=== PATIENT | female | born 1990 | race Caucasian/White ===

== ENCOUNTER 2017-04-21 13:29 | Emergency (ER) | payer OTHER, SELFPAY ==
[2017-04-21 13:30] VITALS: BP 124/94; PULSE 84; RESP 20; TEMP 36.8; O2SAT 98; BMI 25.7
[2017-04-21 14:33] VITALS: BP 131/92; PULSE 67; RESP 20; TEMP 36.6; O2SAT 98; BMI 26.6
--- NOTE | 2017-04-21 15:16 | HMH.EDUTC ---
[facility] [place] Impression: Cyst Disposition: Home, Self-Care Condition on Discharge: Good Instructions: DI for Skin Abscess Additional Instructions: Increase fluids, Tylenol Motrin as needed for pain Follow-up ENT call office tomorrow If symptoms return or worsen return or be seen in the ER Prescriptions: cephALEXin [Keflex 500mg Cap] 500 mg PO BID 7 Days #14 cap Referrals: Eddi Flynn MD [Primary Care Provider] - Time of Disposition: 15:23 Medical Decision Making Vital Signs: 04/21/17 13:30 04/21/17 14:33 Temperature 98.2 F 97.8 F Temperature Source Oral Temporal Artery Scan Pulse Rate [Left Radial] 84 67 Respiratory Rate 20 20 Blood Pressure [Left Arm] 124/94 131/92 Blood Pressure Mean [Left Arm] 104 105 Blood Pressure Source [Left Arm] Automatic Cuff Automatic Cuff Blood Pressure Position [Left Arm] Sitting Sitting 02 Sat by Pulse Oximetry 98 98 Oxygen Delivery Method Room Air Room Air - Jack Inquiry Pt receiving controlled substance: No [facility] [place] - General Chief complaint: Skin/Abscess/Foreign Body Stated complaint: Numbness in lips,crooked smile Mode of Arrival: Ambulatory Source of Information: Patient Limitations: No Limitations Description of Symptoms (Recalled from Triage Doc. by RN): PATIENT STATES SHE HAS A CYST ON THE INSIDE OF HER LIP ON THE LEFT SIDE. STATES HER LIP IS NUMB AND HER SMILE IS CROOKED. STATES THIS APPEARED 2 NIGHTS AGO. STATES IT IS NOT PAINFUL. HEENT Symptoms (Recalled from RN notes): No Resp Symptoms (Recalled from RN notes): No Skin Symptoms (Recalled from RN notes): Yes MS Symptoms (Recalled from RN notes): No Functional Status (Recalled from RN notes): NA - History of Present Illness Provider Complaint: 26-year-old female presents for cyst on left lower lip. Patient states started 2 days ago is numb in her mouth was off. Patient denies fever or pain. Patient states she just had her teeth cleaned and was told she has no cavities. - Related Data Home Medications Medication Instructions Recorded Confirmed Escitalopram Oxalate [Lexapro] 20 mg PO DAILY 04/21/17 04/21/17 hydroCHLOROthiazide [HCTZ 25mg 25 mg PO DAILY 04/21/17 04/21/17 tab] Previous Rx's Medication Instructions Recorded cephALEXin [Keflex 500mg Cap] 500 mg PO BID 7 Days #14 cap 04/21/17 Allergies Allergy/AdvReac Type Severity Reaction Status Date / Time No Known Allergies Allergy Verified 04/21/17 14:41 - Worker's Comp Is this a Worker's Comp case?: No Is this an [facility] Worker's Comp?: No Is this a [place] Worker's Comp?: No [facility] History I have reviewed the patient's past medical history: Yes Medical History: Denies:: Cancer, Diabetes Mellitus Type 1, Diabetes Mellitus Type 2, Internal Pacemaker, MRSA Other Surgeries: No: Pacemaker Amputation: No Fractures: No - *Social History Educational Level: Attended High School Smoking Status: Current every day smoker Tobacco Type: cigarettes Alcohol Intake: never - Psychiatric History Expresses thoughts of harming self/others: None Suicide Plan Description: No Plan ROS Obtained: Yes All systems reviewed & no additional complaints - Constitutional Constitutional: Reports system reviewed and no additional complaints, except as docu - Eyes Eyes: Reports system reviewed and no additional complaints, except as docu - ENT Ears, Nose, Mouth, and Throat: Reports system reviewed and no additional complaints, except as docu, Reports as per HPI - Cardiovascular Cardiovascular: Reports system reviewed and no additional complaints, except as docu - Respiratory Respiratory: Yes system reviewed and no additional complaints, except as docu - Gastrointestinal Gastrointestingal: Reports: system reviewed and no additional complaints, except as docu - Musculoskeletal Musculoskeletal: Reports system reviewed and no additional complaints, except as docu - Neurologic Neurologic: Reports system reviewe
--- NOTE | 2017-04-21 15:19 | ED_ITS ---
[facility] Disposition Clinical Impression: Cyst Disposition: Home, Self-Care Condition on Discharge: Good Instructions: DI for Skin Abscess Additional Instructions: Increase fluids, Tylenol Motrin as needed for pain Follow-up ENT call office tomorrow If symptoms return or worsen return or be seen in the ER Prescriptions: cephALEXin [Keflex 500mg Cap] 500 mg PO BID 7 Days #14 cap Referrals: Eddi Flynn MD [Primary Care Provider] - Time of Disposition: 15:23 Medical Decision Making Vital Signs: 04/21/17 13:30 04/21/17 14:33 Temperature 98.2 F 97.8 F Temperature Source Oral Temporal Artery Scan Pulse Rate [Left Radial] 84 67 Respiratory Rate 20 20 Blood Pressure [Left Arm] 124/94 131/92 Blood Pressure Mean [Left Arm] 104 105 Blood Pressure Source [Left Arm] Automatic Cuff Automatic Cuff Blood Pressure Position [Left Arm] Sitting Sitting 02 Sat by Pulse Oximetry 98 98 Oxygen Delivery Method Room Air Room Air - Jack Inquiry Pt receiving controlled substance: No [facility] HPI - General Chief complaint: Skin/Abscess/Foreign Body Stated complaint: Numbness in lips,crooked smile Mode of Arrival: Ambulatory Source of Information: Patient Limitations: No Limitations Description of Symptoms (Recalled from Triage Doc. by RN): PATIENT STATES SHE HAS A CYST ON THE INSIDE OF HER LIP ON THE LEFT SIDE. STATES HER LIP IS NUMB AND HER SMILE IS CROOKED. STATES THIS APPEARED 2 NIGHTS AGO. STATES IT IS NOT PAINFUL. HEENT Symptoms (Recalled from RN notes): No Resp Symptoms (Recalled from RN notes): No Skin Symptoms (Recalled from RN notes): Yes MS Symptoms (Recalled from RN notes): No Functional Status (Recalled from RN notes): NA - History of Present Illness Provider Complaint: 26-year-old female presents for cyst on left lower lip. Patient states started 2 days ago is numb in her mouth was off. Patient denies fever or pain. Patient states she just had her teeth cleaned and was told she has no cavities. - Related Data Home Medications Medication Instructions Recorded Confirmed Escitalopram Oxalate [Lexapro] 20 mg PO DAILY 04/21/17 04/21/17 hydroCHLOROthiazide [HCTZ 25mg 25 mg PO DAILY 04/21/17 04/21/17 tab] Previous Rx's Medication Instructions Recorded cephALEXin [Keflex 500mg Cap] 500 mg PO BID 7 Days #14 cap 04/21/17 Allergies Allergy/AdvReac Type Severity Reaction Status Date / Time No Known Allergies Allergy Verified 04/21/17 14:41 - Worker's Comp Is this a Worker's Comp case?: No Is this an [facility] Worker's Comp?: No Is this a [place] Worker's Comp?: No [facility] History I have reviewed the patient's past medical history: Yes Medical History: Denies:: Cancer, Diabetes Mellitus Type 1, Diabetes Mellitus Type 2, Internal Pacemaker, MRSA Other Surgeries: No: Pacemaker Amputation: No Fractures: No - *Social History Educational Level: Attended High School Smoking Status: Current every day smoker Tobacco Type: cigarettes Alcohol Intake: never - Psychiatric History Expresses thoughts of harming self/others: None Suicide Plan Description: No Plan ROS Obtained: Yes All systems reviewed & no additional complaints - Constitutional Constitutional: Reports system reviewed and no additional complaints, except as docu - Eyes Eyes: Reports system revie
== END 2017-04-21 15:33 | disposition home or self-care (01) ==
LOC: ER 13:50 → UTC 14:00
PROVIDERS: Emergency Provider Nurse Practitioner Family; Family Provider Emergency Medicine; PCP Emergency Medicine
DX: K09.8 Other cysts of oral region, not elsewhere classified (principal); F17.210 Nicotine dependence, cigarettes, uncomplicated
CPT/HCPCS: 99201; 99283

== ENCOUNTER → 2017-06-26 14:24 | Outpatient (CLI) | payer OTHER, SELFPAY ==
[2017-06-26 19:47] LABS: Alanine Aminotransferase 39 U/L (12-78); Albumin Level 3.6 gm/dL (3.4-5.0); Alkaline Phosphatase 46 U/L (46-116); Anion Gap 11.1 mEq/L (5-15); Aspartate Amino Transferase 25 U/L (15-37); Bilirubin,Total 0.3 mg/dL (0.2-1.0); Blood Urea Nitrogen 15 mg/dL (7-18); Calcium 8.9 mg/dL (8.5-10.1); Carbon Dioxide 28 mmol/L (21.0-32.0); Chloride 107 mmol/L (98-107); Chol/HDL Ratio 4.8 (1-3.5); Cholesterol 220 mg/dL (140-200); Creatinine,Serum 0.76 mg/dL (0.55-1.02); Estimated Glomerular Filt Rate 93 ml/min (>60); GFR (African American) 113 ML/MIN (>60); Globulin 3.5 gm/dl (1.3-3.2); Glucose 111 mg/dL (74-106); HDL Cholesterol 46 mg/dL (29-89); LDL Cholesterol 99 mg/dL (0-130); Potassium 4.1 mmoL/L (3.5-5.1); Sodium 142 mmol/L (136-145); T4 (Thyroxine) 6.7 ug/dl (4.7-13.3); Thyroid Stimulating Hormone 3.52 uIU/ml (0.358-3.740); Total Protein,Serum 7.1 gm/dL (6.4-8.2); Triglycerides 376 mg/dL (30-200); VLDL Cholesterol 75 mg/dL (0-40)
[2017-06-26 19:50] LABS: C-Reactive Protein < 0.2 mg/L (0.0-0.9)
[2017-06-26 20:30] LABS: Erythrocyte Sedimentation Rate 14 mm/hr (0-20)
[2017-06-28 10:15] LABS: Anti-Jo-1 <0.2 AI (0.0-0.9); Anti-Smith Antibody <0.2 AI (0.0-0.9); Antichromatin Antibodies <0.2 AI (0.0-0.9); Antiscleroderma-70 Antibodies <0.2 AI (0.0-0.9); RNP Antibodies <0.2 AI (0.0-0.9); Sjogren's Anti-SS-A <0.2 AI (0.0-0.9); Sjogren's Anti-SS-B <0.2 AI (0.0-0.9)
[2017-06-28 11:38] LABS: RA Latex Turbid. <10.0 IU/mL (0.0-13.9); Vitamin D 25 Hydroxy 26.5 ng/mL (30.0-100.0)
[2017-06-28 11:39] LABS: Anti-Centromere B Antibodies <0.2 AI (0.0-0.9); Anti-DNA (DS) Ab Qn <1 IU/mL (0-9); Vitamin B12 304 pg/mL (232-1245)
[2017-06-29 18:37] LABS: Anti-Cyclic Citrullinated Pept 3 units (0-19)
== END ==
PROVIDERS: Visit Provider Physician Assistant
DX: R20.2 Paresthesia of skin (principal); M79.89 Other specified soft tissue disorders
CPT/HCPCS: 80053; 80061; 82607; 82652; 84436; 84443; 85651; 86038; 86140; 86200; 86431

== ENCOUNTER → 2017-11-07 12:04 | Outpatient (REF) | payer OTHER, SELFPAY ==
[2017-11-09 18:15] LABS: Neisseria gonorrhoeae, NAA Negative (Negative)
== END ==
LOC: LAB 12:04
PROVIDERS: Visit Provider Nurse Practitioner Family
DX: N89.8 Other specified noninflammatory disorders of vagina (principal)
CPT/HCPCS: 87210; 87491; 87591

== ENCOUNTER → 2017-11-21 08:36 | Outpatient (CLI) | payer OTHER, SELFPAY ==
[2017-11-22 15:48] LABS: HCG,Quantitative 5321 mIU/mL
== END ==
PROVIDERS: Visit Provider Nurse Practitioner Family
DX: Z34.90 Encounter for supervision of normal pregnancy, unspecified, unspecified trimester (principal)
CPT/HCPCS: 84702

== ENCOUNTER → 2017-12-17 16:32 | Outpatient (CLI) | payer OTHER, SELFPAY ==
[2017-12-17 17:10] LABS: Basophils % 0.3 % (0.1-2.0); Eosinophils # 0.1 K/mm3 (0.0-0.4); Eosinophils % 0.8 % (0.1-12.0); Hematocrit 38.8 % (37.0-47.0); Hemoglobin 13.2 g/dL (12.2-16.2); Lymphocytes # 2.4 K/mm3 (0.7-4.5); Lymphocytes % 19.3 K/mm3 (10-50); Mean Corpuscular Hemoglobin 29.8 pg (27.0-31.2); Mean Corpuscular Volume 87.5 fl (81-99); Mean Platelet Volume 7.6 fl (7.4-10.4); Monocytes # 0.5 K/mm3 (0.1-1.0); Monocytes % 3.7 % (1.7-9.3); Neutrophils # 9.3 K/mm3 (1.8-7.8); Platelet Count 266 K/mm3 (142-424); Red Blood Count 4.44 M/mm3 (4.20-5.40); Red Cell Distribution Width 12.9 % (11.5-17.5); White Blood Count 12.3 K/mm3 (4.8-10.8)
[2017-12-20 18:38] LABS: HIV Screen 4th Generation wRfx Non Reactive (Non Reactive)
[2017-12-20 18:39] LABS: Hepatitis B Surface Antigen Negative (Negative); Hepatitis C Antibody <0.1 s/co ratio (0.0-0.9); Rapid Plasma Reagin Ab Titer Non Reactive (NonRea<1:1)
== END ==
PROVIDERS: Family Provider Emergency Medicine; PCP Physician Assistant; Visit Provider Nurse Practitioner Obstetrics & Gynecology
DX: Z34.90 Encounter for supervision of normal pregnancy, unspecified, unspecified trimester (principal)
CPT/HCPCS: 36415; 85025; 86592; 86703; 86762; 86850; 87340; 87380; G0432

== ENCOUNTER → 2017-12-27 12:48 | Outpatient (CLI) | payer OTHER, SELFPAY ==
--- NOTE | 2017-12-27 12:50 | US_ITS ---
US OB transvaginal HISTORY: ITS.REASON: US OB Dates ORDERING PHYSICIAN: Keshav Clark MD PATIENT AGE: 27 years COMPARISON: None FINDINGS: An intrauterine gestational sac is present with a pole with a crown-rump length of 3.81cm correlating to gestational age of 10 weeks 5 days. heart tones are present with an FHR of 160 bpm's. Yolk sac is noted. The amnion and chorion have not yet fused. Adnexa: Unremarkable. IMPRESSION: Live intrauterine gestation at 10 weeks 5 days days as described above. Estimated due date by Ultrasound is 07/20/2018
== END ==
PROVIDERS: Family Provider Emergency Medicine; PCP Physician Assistant; Visit Provider Nurse Practitioner Obstetrics & Gynecology
DX: O26.841 Uterine size-date discrepancy, first trimester (principal)
CPT/HCPCS: 76817

== ENCOUNTER → 2018-03-03 12:20 | Outpatient (CLI) | payer OTHER, SELFPAY ==
--- NOTE | 2018-03-03 12:21 | US_ITS ---
US OB /maternal detail: INDICATION: ITS.REASON: US OB Complete ORDERING PHYSICIAN: Keshav Clark MD PATIENT AGE: 27 years TECHNIQUE: ultrasound transabdominal scanning. COMPARISON: No previous relevant studies. FINDINGS: Single viable intrauterine gestation. Breech position. Placenta: Posterior placenta grade 1. There is average amount fluid. The cervix appears satisfactory. Closed and measuring 4 cm in length. Complete survey performed and was unremarkable on the submitted images as in PACS. No discrete anomalies identified on survey imaging by technologist. Active fetus. Three-vessel cord with satisfactory umbilical cord insertion. 4- chamber heart noted. Survey of brain & ventricles unremarkable. Face and neck survey unremarkable. Diaphragm and chest views unremarkable. Abdomen: Both kidneys noted and unremarkable. Stomach noted and satisfactory. Spine: Survey of the spine satisfactory with no anomalies identified nor imaged. Both arms and legs noted. Amniotic Fluid: Adequate. Maternal adnexa: No significant findings. Measurements: Average ultrasound age 20w2d. Gestational Age 20w1d. Estimated due date by ultrasound age 0407/19/2018. Estimated weight 349 grams. BPD = 20w0d OFD = 20w5d HC = 19w5d AC = 20w1d FL = 21w0d Growth Percentile= 58% Heart Rate = 155 Cerebellum = 20 weeks 2 days Humerus = not obtained HC/AC is 1.16 (1.09-1.26). CI is 76% (70-86%). FL/BPD is 75%. FL/AC is 24%. IMPRESSION: There is a single live fetus which is in cephalic presentation. Average ultrasound age is 20 weeks and 2 days with an estimated due date by ultrasound of 07/19/2018. All parameters correlate. No obvious anomalies. Posterior grade 1 placenta with average appearing amount of amniotic fluid. Please see above for detail.
== END ==
PROVIDERS: PCP Emergency Medicine; Visit Provider Nurse Practitioner Obstetrics & Gynecology
DX: Z36.0 Encounter for antenatal screening for chromosomal anomalies (principal)
CPT/HCPCS: 76811

== ENCOUNTER → 2018-04-16 10:41 | Outpatient (CLI) | payer OTHER, SELFPAY ==
[2018-04-16 11:07] LABS: Glucose,Fasting 84 mg/dL (60-105)
[2018-04-16 13:25] LABS: Glucose 1 Hour 130 mg/dL (74-106)
== END ==
PROVIDERS: Visit Provider Nurse Practitioner Obstetrics & Gynecology
DX: Z34.90 Encounter for supervision of normal pregnancy, unspecified, unspecified trimester (principal)
CPT/HCPCS: 36415; 82951

== ENCOUNTER → 2018-06-17 16:58 | Outpatient (CLI) | payer OTHER, SELFPAY | PROVIDERS: Visit Provider Nurse Practitioner Obstetrics & Gynecology | DX: Z34.90 Encounter for supervision of normal pregnancy, unspecified, unspecified trimester (principal) | CPT/HCPCS: 86403 ==

== ENCOUNTER → 2018-06-23 13:09 | Outpatient (CLI) | payer OTHER, SELFPAY ==
--- NOTE | 2018-06-23 13:13 | US_ITS ---
US OB BPP w/Fet-Mat S/D: Indication: ITS.REASON: US OB BPP Growth- LGA ORDERING PHYSICIAN: Keshav Clark MD PATIENT AGE: 27 years FINDINGS: The following parameters are obtained: Average ultrasound age is 37w1d. Estimated due date by ultrasound is 07/13/2018. Estimated weight is 3155 grams which is 81% BPD: 36w4d OFD: OFD HC: 37w4d AC: 37w6d FL: 36w1d heart rate: 142 bpm. HC/AC: 0.97 (0.93-1.11) Cephalic index: 76% (70-86%) FL/BPD: 78% (71-87%) FL/AC: 21% (20-24%) Amniotic fluid index: 9 cm Qualitative AFV: 2 breathing movements: 2 Gross body movements: 2 Tone: 2 Biophysical profile score: 8/8 No obvious anomalies evident. Placenta: POST GR 2 Cervix: Appears closed and measures 3 cm IMPRESSION: There is a single live fetus present which is in cephalic presentation. Average ultrasound age 37 weeks and 1 day with an estimated weight of 3155 g which is 81 percentile. Biophysical profile dated today with normal amniotic fluid index. Placenta is posterior and grade 2
== END ==
PROVIDERS: PCP Emergency Medicine; Visit Provider Nurse Practitioner Obstetrics & Gynecology
DX: O36.60X0 Maternal care for excessive fetal growth, unspecified trimester, not applicable or unspecified (principal)
CPT/HCPCS: 76811; 76816; 76819; 76820

== ENCOUNTER 2018-07-14 05:36 | Inpatient (IN) ==
[2018-07-14 06:03] LABS: Amphetamine/Metha Screen,Urine Negative ng/mL (<1000); Barbiturates Screen,Urine Negative ng/mL (<200); Benzodiazepines Screen,Urine Negative ng/mL (<200); Cannabinoid Screen,Urine Negative ng/mL (<50); Cocaine Screen,Urine Negative ng/mL (<300); Methadone Screen,Urine Negative ng/mL (<300); Opiate Screen,Urine Negative ng/mL (<300); Phencyclidine Screen,Urine Negative ng/mL (<25)
[2018-07-14 06:10] LABS: Basophils % 0.3 % (0.1-2.0); Eosinophils # 0.2 K/mm3 (0.0-0.4); Eosinophils % 1.4 % (0.1-12.0); Hematocrit 35.3 % (37.0-47.0); Lymphocytes # 2.7 K/mm3 (0.7-4.5); Mean Corpuscular HGB Conc 33.8 g/dL (31.8-35.4); Mean Corpuscular Hemoglobin 28.6 pg (27.0-31.2); Mean Corpuscular Volume 84.7 fl (81-99); Mean Platelet Volume 8.7 fl (7.4-10.4); Monocytes # 0.5 K/mm3 (0.1-1.0); Monocytes % 4.3 % (1.7-9.3); Neutrophils # 7.9 K/mm3 (1.8-7.8); Platelet Count 210 K/mm3 (142-424); Red Blood Count 4.17 M/mm3 (4.20-5.40); White Blood Count 11.3 K/mm3 (4.8-10.8)
[2018-07-14 06:17] LABS: Calcium 8.6 mg/dL (8.5-10.1)
--- NOTE | 2018-07-14 08:02 | Operative Note ---
Date of procedure: 07/14/18 Pre-op Diagnosis:: Term , previous section Post-op Diagnosis:: Term , previous section Procedure performed:: Repeat lower segment transverse section Surgeon:: Keshav Clark MD Cop(s):: Dr. Moody [employer]ERCIAL CR[employer]BER:: Luis Weaver Anesthesia: spinal Estimated blood loss (mL): 600 Clinical Note:: She is a 27-year-old 2 para 1 who was 39 weeks gestational age. She has had a previous section as a result of that was offered repeat lower segment transverse section at term. Operative findings:: She delivered a liveborn female child at 7:36 AM on the morning of July 14, 2018. The baby had Apgars of 8 at 1 minute and 9 at 5 minutes. PH was 7.25. Ovaries and tubes appeared normal. Operative note:: She was taken to the operating room where spinal anesthesia was found be adequ ate. She was prepped and draped in normal sterile fashion in the supine position with a leftward tilt. A Stoner catheter was in the bladder. A Pfannenstiel skin incision was made with knife then carried through to the underlying layer of fascia with cautery. The fascia was opened in the midline with cautery and extended laterally using Noble scissors. Anabel clamps were applied to the superior aspect of the fascial incision which was tented up and the underlying rectus muscles dissected off using cautery. The Anabel clamps were then applied to the inferior aspect of the fascial incision which in a similar fashion was tented up and the underlying rectus muscles dissected off using cautery. The rectus muscles were then in the midline, the peritoneum identified, and entered sharply with Metzenbaum scissors. This incision was then extended superiorly and inferiorly with cautery. We had good visualization of the bladder inferiorly. The Fernando device was then placed within the abdominal cavity. The bladder peritoneum was then opened in the midline and extended laterally using Metzenbaum scissors. A bladder flap was created digitally. Transverse incision was made through the uterine muscle to the amnion. This incision was then extended laterally using fingers traction. The amnion was entered sharply with knife. There was clear amniotic fluid. The infant's head was then delivered atraumatically. This was followed by the anterior shoulder and the rest of the 's body atraumatically. The oropharynx and nasopharynx were bulb suctioned. The was then handed off to Dr. Griggs who assigned Apgars of 8 at 1 minute and 9 at 5 minutes. We then obtained cord blood as well as cord pH. The pH was 7.25. Using gentle traction on the cord and countertraction on the fundus I was able to easily deliver the placenta intact. It had a normal three-vessel cord. The uterus was then cleared of clots and debris . The uterine incision was then closed using running 0 Vicryl suture in a locked fashion. A second layer of the same suture was used to imbricate the first layer. The bladder peritoneum was then closed using running 2-0 Vicryl suture in a locked fashion. The gutters and cul-de-sac were then cleared of clots and debris . Once again hemostasis was assured. The peritoneum was grasped with Radha clamps and closed using running 2-0 Vicryl suture. The rectus muscles were then reapproximated using running 0 Vicryl suture. The fascia was closed using running #1 Vicryl suture. The subcutaneous tissues were then irrigated with warm water followed by closure Lucinda's fascia using running 2-0 Monocryl suture. The skin was closed with awilda. I then cleaned the skin with Hibiclens. Sterile dressings were applied. She tolerated the procedure well and was taken to the recovery room in excellent condition. All sponges minute and needle counts were correct. Estimate a blood loss was approximately 600 mL. Condition: stable Disposition: PACU Specimens:: Products of conception Complications:: None
--- NOTE | 2018-07-14 08:05 | Progress Note ---
[facility] Anesthesia Checklist - Patient Identification Patient Identification: Arm Band - Structural Data Admitted From: Inpatient Planned Operative Procedure/s: repeat c/s Consent for Planned Operative Procedure(s) Verified: Yes Verified Documents: Surgical Consent, History and Physical - NPO Status Verified Time NPO: 00:00 - Additional verifications Anesthesia Reactions: No - Airway Assessment C-Spine Mobility Assessed: Yes (mp2) TMJ Mobility Assessed: Yes Dentition: Good Dentition - Neurological Assessment Level of Consciousness: Awake, Alert - Anesthesia Plan Anesthesia Risk discussed: Yes Anesthesia Plan: Verified ASA Class: II Anesthesia Type: Spinal [facility] History I have reviewed the patient's past medical history: Yes Medical History: Reports:: Anxiety Denies:: Cancer, Diabetes Mellitus Type 1, Diabetes Mellitus Type 2, Hypertension, MRSA *Have you ever received a pneumonia vaccine?: No *Have you received a flu vaccine this season?: No Other Surgeries: Yes: Amputation: No Fractures: No - *Social History Smoking Status: Never smoker Alcohol Intake: never Alcohol Intake Frequency:: other *Occupational Status:: employed Housing: apartment Household Members: children - Psychiatric History Pschychiatric History:: Reports:: Anxiety Family Hx:: No significant family history Para: 1
--- NOTE | 2018-07-14 08:06 | Progress Note ---
[facility] Anesthesia Record Part I Intake, IV Amount: 2,000 Estimated blood loss (mL): 600 Urine output (mL): 200 Blood Pressure: 125/77 SaO2: 99 Pulse Rate: 127 Respiratory Rate: 16 Temperature: 99 F Patient is:: Awake, Stable Stable to PACU at:: 08:00
--- NOTE | 2018-07-14 08:06 | Progress Note ---
[facility] Anesthesia Record Part II Discharge Time: 08:30 Destination: Obstetric PACU nurse assessment reviewed?: Yes Patient Condition:: Good Anesthesia Complications:: None Swallowing reflex intact?: Yes Cyanosis?: No
--- NOTE | 2018-07-14 09:03 | Pharmacy Consult Notes ---
[facility] Pharmacy VTE Monitoring - Patient Demographics Admission date: 07/14/18 Report Date: 07/14/18 Time: 09:03 Allergies/Adverse Reactions: Patient Allergies No Known Allergies Allergy (Verified 07/10/18 09:32) Height: 1.63 m Weight: 89.811 kg - VTE Risk Labs: VTE Related Lab Results Hgb 12.0 g/dL (12.2-16.2) L 07/14/18 06:00 Hct 35.3 % (37.0-47.0) L 07/14/18 06:00 Plt Count 210 K/mm3 (142-424) 07/14/18 06:00 BUN 8 mg/dL (7-18) 07/14/18 06:00 Creatinine 0.56 mg/dL (0.55-1.02) 07/14/18 06:00 Estimated Creat Clear 218 mL/min (50-200) 07/14/18 06:00 - Prophylaxis VTE Prophylaxis Ordered?: Yes Types of VTE Prophylaxis: IPCS Thigh High Location of Applied Device: Bilateral Lower Extremeties - VTE Diagnosis Confirmed Treatment or plan recommended: Continue Current Treatment
[2018-07-15 06:38] LABS: Basophils % 0.1 % (0.1-2.0); Eosinophils % 0.1 % (0.1-12.0); Hematocrit 27.4 % (37.0-47.0); Hemoglobin 9.3 g/dL (12.2-16.2); Lymphocytes # 2.3 K/mm3 (0.7-4.5); Lymphocytes % 19.2 % (10-50); Mean Corpuscular HGB Conc 34.1 g/dL (31.8-35.4); Mean Corpuscular Hemoglobin 29.4 pg (27.0-31.2); Mean Corpuscular Volume 86.3 fl (81-99); Mean Platelet Volume 8.8 fl (7.4-10.4); Monocytes # 0.6 K/mm3 (0.1-1.0); Monocytes % 5.4 % (1.7-9.3); Neutrophils # 8.8 K/mm3 (1.8-7.8); Neutrophils % 75.1 % (37.0-80.0); Platelet Count 216 K/mm3 (142-424); Red Blood Count 3.17 M/mm3 (4.20-5.40); Red Cell Distribution Width 14.2 % (11.5-17.5); White Blood Count 11.7 K/mm3 (4.8-10.8)
--- NOTE | 2018-07-15 08:09 | Progress Note ---
Internal Medicine - PN: Subj *Date: 07/15/18 *Time: 08:08 Interval history: She is doing very well this morning. She is eating and drinking and ambulating. She is bottlefeeding. Her lochia is normal. Her pain is well controlled. Exam Vital signs and Labs for Last 24 Hours: Temp Pulse Resp BP Pulse Ox 98.1 F 107 H 18 141/89 H 99 07/14/18 20:00 07/14/18 20:00 07/14/18 20:00 07/14/18 20:00 07/14/18 20:00 Laboratory Results - last 24 hr 07/14/18 07:25: Urine Color Yellow, Urine Appearance Clear, Urine pH 7.0, Ur Specific [place] 1.010, Urine Protein Negative, Urine Glucose (UA) Negative, Urine Ketones Negative, Urine Blood Negative, Urine Nitrate Negative, Urine Bilirubin Negative, Urine Urobilinogen 0.2, Ur Leukocyte Esterase Negative, Urine WBC Occasional, Ur Squamous Epith Cells 3-5, Urine Bacteria Trace 07/15/18 06:11: WBC 11.7 H, RBC 3.17 L, Hgb 9.3 L, Hct 27.4 L, MCV 86.3, MCH 29.4, MCHC 34.1, RDW 14.2, Plt Count 216, MPV 8.8, Neut % (Auto) 75.1, Lymph % (Auto) 19.2, [place] % (Auto) 5.4, Eos % (Auto) 0.1, Baso % (Auto) 0.1, Neut # (Auto) 8.8 H, Lymph # (Auto) 2.3, [place] # (Auto) 0.6, Eos # (Auto) 0.0, Baso # (Auto) 0.0 I & O for Last 24 hours: Intake & Output 07/12/18 07/13/18 07/14/18 07/15/18 11:59 11:59 11:59 11:59 Intake Total 2109 / 2109 Output Total 50 / 50 500 / 500 Balance 2059 / 2059 -500 / -500 Weight 198 lb - Constitutional no acute distress Assessment and Plan (1) Previous section complicating , with delivery Current visit: Yes Status: Acute Category: Medical Code(s): O34.219 - Maternal care for unspecified type scar from previous delivery (2) delivery delivered Current visit: Yes Status: Acute Category: Medical Code(s): O82 - Encoun ter for delivery without indication - Assessment and plan all Dx Assessment and Plan for all problems:: She is doing very well this morning. We will plan to send her home in 48 hours.
--- NOTE | 2018-07-16 08:38 | Progress Note ---
Internal Medicine - PN: Subj *Date: 07/16/18 *Time: 08:37 Interval history: She continues to do well this morning. She is eating and drinking and ambulating. She is bottlefeeding. Her lochia is normal. Exam Vital signs and Labs for Last 24 Hours: Temp Pulse Resp BP Pulse Ox 97.9 F 96 H 18 110/74 95 07/15/18 19:59 07/15/18 19:59 07/15/18 19:59 07/15/18 19:59 07/15/18 19:59 I & O for Last 24 hours: Intake & Output 07/13/18 07/14/18 07/15/18 07/16/18 11:59 11:59 11:59 11:59 Intake Total 2110 / 2110 Output Total 50 / 50 500 / 500 Balance 2059 / 2059 -500 / -500 Weight 198 lb - Constitutional no acute distress Assessment and Plan (1) Previous section complicating , with delivery Current visit: Yes Status: Acute Category: Medical Code(s): O34.219 - Maternal care for unspecified type scar from previous delivery (2) delivery delivered Current visit: Yes Status: Acute Category: Medical Code(s): O82 - Encounter for delivery without indication - Assessment and plan all Dx Assessment and Plan for all problems:: She continues to do very well. We will plan to send her home tomorrow.
[2018-07-16 20:51] VITALS: BP 121/90
--- NOTE | 2018-07-17 08:08 | Discharge Summary ---
General - General Admission date:: 07/14/18 Discharge date: 07/17/18 Hospital Course Rhogam Administration: Not Indicated Objective Vital signs: Temp Pulse Resp BP Pulse Ox 98.1 F 96 H 18 121/90 96 07/16/18 20:08 07/16/18 20:08 07/16/18 20:08 07/16/18 20:08 07/16/18 20:08 no acute distress DS: Diagnosis - Discharge Diagnosis (1) Previous section complicating , with delivery Status: Acute (2) delivery delivered Status: Acute Discharge Plan - Patient Discharge Instructions ACTIVITY: No heavy lifting DIET: continue same diet Additional Instructions: 07/28/18 at 2:00 f/u with Dr Clark. Patient Instructions: DI for , DI for Surgical Site Infection - Follow up Plan Disposition: Home, Self-Snf Medications: Home Medications Medication Instructions Recorded Confirmed Type 1 tab PO DAILY 03/11/18 07/14/18 History vitamin,calcium,qtuhosxi-jgkt-vayxm acid tablet Fluticasone Propionate [Flonase 1 spray INTRANASAL DAILY 07/14/18 07/14/18 History Allergy Relief NS] Ibuprofen [Motrin 400mg 400 mg PO Q4HP PRN #40 tab 07/17/18 Rx tablet] Oxycodone HCl/Acetaminophen 1 - 2 tab PO Q4-6H PRN #20 tab 07/17/18 Rx [Percocet 5/325mg tablet] Prescriptions/Medication Reconciliation: New Ibuprofen [Motrin 400mg tablet] 400 mg PO Q4HP PRN #40 tab PRN Reason: Moderate Pain Oxycodone HCl/Acetaminophen [Percocet 5/325mg tablet] 1 - 2 tab PO Q4-6H PRN #20 tab PRN Reason: Severe Pain Continued vitamin,calcium,rzgwsekm-caew-pylyp acid tablet 1 tab PO DAILY Fluticasone Propionate [Flonase Allergy Relief NS] 1 spray INTRANASAL DAILY
--- NOTE | 2018-07-17 08:12 | Discharge Summary ---
General - General Admission date:: 07/14/18 Discharge date: 07/17/18 HPI HPI: She is a 27-year-old 2 now para 2 who is 39 weeks gestational age. She has had a previous section and as a result of that was offered repeat lower segment transverse section at term. Hospital Course Hospital Course: She delivered a liveborn female child at 7:36 AM on the morning of July 14, 2018. The baby weighed 8 pounds 10 ounces and was 19 and three-quarter inches long. She had Apgars of 8 at 1 minute and 9 at 5 minutes. She is done well and has remained afebrile throughout her hosp italization. She is eating and drinking and ambulating. She has a positive blood, she is rubella immune and was group B streptococcus negative. She is bottlefeeding. Her stud setter is Dr. Griggs. She is discharged home to follow-up with me in approximately 2 weeks time. She has had her awilda removed and Steri-Strips applied. She was given a prescription for Percocet 5/325 number 20 tablets as well as Motrin 400 number 40 tablets. She will continue with her vitamins and iron. Rhogam Administration: Not Indicated Objective Vital signs: Temp Pulse Resp BP Pulse Ox 98.1 F 96 H 18 121/90 96 07/16/18 20:08 07/16/18 20:08 07/16/18 20:08 07/16/18 20:08 07/16/18 20:08 DS: Diagnosis - Discharge Diagnosis (1) Previous section complicating , with delivery Status: Acute (2) delivery delivered Status: Acute Discharge Plan - Patient Discharge Instructions ACTIVITY: No heavy lifting DIET: continue same diet Additional Instructions: 07/28/18 at 2:00 f/u with Dr Clark. Patient Instructions: DI for , DI for Surgical Site Infection - Follow up Plan Disposition: Home, Self-[facility] Medications: Home Medications Medication Instructions Recorded Confirmed Type 1 tab PO DAILY 03/11/18 07/14/18 History vitamin,calcium,cxqjtoge-ckio-hqjtc acid tablet Fluticasone Propionate [Flonase 1 spray INTRANASAL DAILY 07/14/18 07/14/18 History Allergy Relief NS] Ibuprofen [Motrin 400mg 400 mg PO Q4HP PRN #40 tab 07/17/18 Rx tablet] Oxycodone HCl/Acetaminophen 1 - 2 tab PO Q4-6H PRN #20 tab 07/17/18 Rx [Percocet 5/325mg tablet] Prescriptions/Medication Reconciliation: New Ibuprofen [Motrin 400mg tablet] 400 mg PO Q4HP PRN #40 tab PRN Reason: Moderate Pain Oxycodone HCl/Acetaminophen [Percocet 5/325mg tablet] 1 - 2 tab PO Q4-6H PRN #20 tab PRN Reason: Severe Pain Continued vitamin,calcium,zrwdmdyk-xwza-gvcjq acid tablet 1 tab PO DAILY Fluticasone Propionate [Flonase Allergy Relief NS] 1 spray INTRANASAL DAILY
== END 2018-07-17 12:24 | disposition home or self-care (01) | DRG 788 ==
LOC: OB 05:36
PROVIDERS: ADMIT Nurse Practitioner Obstetrics & Gynecology; ATTEND Nurse Practitioner Obstetrics & Gynecology
CPT/HCPCS: 59025; 80048; 80305; 81001; 82800; 85025; 86850; 94761; J2405

== ENCOUNTER 2018-07-21 10:16 | Inpatient (IN) ==
[2018-07-21 11:19] LABS: Microscopic, Urine URINE MICROSCOPIC (MICROSCOPIC)
[2018-07-21 11:22] LABS: Appearance,Urine CLEAR (Clear); Bilirubin,Urine Negative (Negative); Blood, Urine 3+ (Negative); Color,Urine YELLOW (Yellow); Glucose,Urine (UA) Negative (Negative); Ketones,Urine Negative (Negative); Leukocyte Esterase,Urine TRACE (Negative); Protein,Urine Negative (Negative); Urobilinogen,Urine 0.2 EU/dl (0.2)
[2018-07-21 11:24] LABS: Basophils % 0.3 % (0.1-2.0); Eosinophils # 0.1 K/mm3 (0.0-0.4); Eosinophils % 1.8 % (0.1-12.0); Hemoglobin 9.9 g/dL (12.2-16.2); Lymphocytes # 1.4 K/mm3 (0.7-4.5); Lymphocytes % 24.5 % (10-50); Mean Corpuscular Hemoglobin 28.2 pg (27.0-31.2); Mean Corpuscular Volume 85.5 fl (81-99); Mean Platelet Volume 7.8 fl (7.4-10.4); Monocytes # 0.2 K/mm3 (0.1-1.0); Monocytes % 3.7 % (1.7-9.3); Neutrophils # 4.1 K/mm3 (1.8-7.8); Neutrophils % 69.7 % (37.0-80.0); Platelet Count 270 K/mm3 (142-424); Red Blood Count 3.51 M/mm3 (4.20-5.40); White Blood Count 5.8 K/mm3 (4.8-10.8)
[2018-07-21 11:31] LABS: Activated Partial Thrombo Time 25.9 seconds (23.6-34.0); INR 1.04 (0.9-1.1); Prothrombin Time 10.7 seconds (9.4-11.8)
[2018-07-21 11:43] LABS: Bacteria,Urine Trace /lpf
[2018-07-21 11:52] LABS: Anion Gap 13.8 mEq/L (5-15); Calcium 8.7 mg/dL (8.5-10.1); Potassium 3.8 mmoL/L (3.5-5.1); Uric Acid 6.6 mg/dL (2.6-7.2)
--- NOTE | 2018-07-21 13:43 | Progress Note ---
Internal Medicine - PN: Subj *Date: 07/21/18 *Time: 13:41 Interval history: She was seen in my office today and said that she was feeling unwell and had a headache along with chest pain and difficulty catching her breath. She denies any calf tenderness. Her blood pressure in my office was 170/110. Her reflexes were normal. There was no clonus. Exam Vital signs and Labs for Last 24 Hours: Temp Pulse Resp BP Pulse Ox 98.1 F 79 16 159/103 H 98 07/21/18 12:50 07/21/18 12:50 07/21/18 12:50 07/21/18 12:50 07/21/18 12:50 Laboratory Results - last 24 hr 07/21/18 10:46: Urine Color Yellow, Urine Appearance Clear, Urine pH 6.0, Ur Specific Crow[place] 1.020, Urine Protein Negative, Urine Glucose (UA) Negative, Urine Ketones Negative, Urine Blood 3+, Urine Nitrate Negative, Urine Bilirubin Negative, Urine Urobilinogen 0.2, Ur Leukocyte Esterase Trace, Urine RBC 5-10, Urine WBC 5-10, Ur Squamous Epith Cells 10-20, Urine Bacteria Trace 07/21/18 10:46: WBC 5.8, RBC 3.51 L, Hgb 9.9 L, Hct 30.0 L, MCV 85.5, MCH 28.2, MCHC 33.0, RDW 14.0, Plt Count 270, MPV 7.8, Neut % (Auto) 69.7, Lymph % (Auto) 24.5, [place] % (Auto) 3.7, Eos % (Auto) 1.8, Baso % (Auto) 0.3, Neut # (Auto) 4.1, Lymph # (Auto) 1.4, [place] # (Auto) 0.2, Eos # (Auto) 0.1, Baso # (Auto) 0.0 07/21/18 10:46: PT 10.7, INR 1.04, APTT 25.9, Fibrinogen 233, D-Dimer 2830 H* 07/21/18 10:46: Sodium 141, Potassium 3.8, Chloride 107, Carbon Dioxide 24, Anion Gap 13.8, BUN 22 H, Creatinine 0.70, Estimated Creat Clear 165, Estimated GFR 102, Est GFR ( Amer) 123, Glucose 87, Uric Acid 6.6, Calcium 8.7, AST 21, ALT 36 07/21/18 10:46: Magnesium 1.8 I & O for Last 24 hours: Intake & Output 07/19/18 07/20/18 07/21/18 07/22/18 11:59 11:59 11:59 11:59 Weight 188 lb - Constitutional no acute distress - *Routine Respiratory Exam Absent: accessory muscle use (good air entry bilaterally), wheezes, crackles - *Routine Abdominal Exam Present: soft, normoactive bowel sounds. Absent: tenderness, rebound, guarding, mass Comments: Her incision is clean and dry. - *Routine Neurological Exam Present: alert, oriented X3 She did not have any clonus. Assessment and Plan (1) Preeclampsia in period Current visit: Yes Status: Acute Category: Medical Code(s): O14.95 - Unspecified pre-eclampsia, complicating the puerperium - Assessment and plan all Dx Assessment and Plan for all problems:: We have admitted her for magnesium sulfate is well as labetalol therapy. Her blood pressure is increased. Her blood work is essentially normal except that her uric acid is slightly elevated at 6.5. Platelets are normal. Liver function tests are normal. We will plan to observe her for at least 24 to 48 hours until her blood pressure stabilizes. We will plan to give her at least 24 hours of magnesium sulfate.
--- NOTE | 2018-07-22 09:57 | Progress Note ---
Internal Medicine - PN: Subj *Date: 07/22/18 *Time: 09:56 Interval history: She is doing better this morning. She has been on magnesium sulfate since yesterday. We will continue the magnesium sulfate for 24 hours. Her blood pressures are still up and down slightly but the latest was 117/80. She denies any headache or scotomata. The previously described chest pain has now resolved. Exam Vital signs and Labs for Last 24 Hours: Temp Pulse Resp BP Pulse Ox 97.9 F 62 16 117/77 95 07/22/18 05:04 07/22/18 06:02 07/22/18 05:04 07/22/18 09:39 07/22/18 08:35 Laboratory Results - last 24 hr 07/21/18 10:46: Urine Color Yellow, Urine Appearance Clear, Urine pH 6.0, Ur Specific Bruner 1.020, Urine Protein Negative, Urine Glucose (UA) Negative, Urine Ketones Negative, Urine Blood 3+, Urine Nitrate Negative, Urine Bilirubin Negative, Urine Urobilinogen 0.2, Ur Leukocyte Esterase Trace, Urine RBC 5-10, Urine WBC 5-10, Ur Squamous Epith Cells 10-20, Urine Bacteria Trace 07/21/18 10:46: WBC 5.8, RBC 3.51 L, Hgb 9.9 L, Hct 30.0 L, MCV 85.5, MCH 28.2, MCHC 33.0, RDW 14.0, Plt Count 270, MPV 7.8, Neut % (Auto) 69.7, Lymph % (Auto) 24.5, [place] % (Auto) 3.7, Eos % (Auto) 1.8, Baso % (Auto) 0.3, Neut # (Auto) 4.1, Lymph # (Auto) 1.4, [place] # (Auto) 0.2, Eos # (Auto) 0.1, Baso # (Auto) 0.0 07/21/18 10:46: PT 10.7, INR 1.04, APTT 25.9, Fibrinogen 233, D-Dimer 2830 H* 07/21/18 10:46: Sodium 141, Potassium 3.8, Chloride 107, Carbon Dioxide 24, Anion Gap 13.8, BUN 22 H, Creatinine 0.70, Estimated Creat Clear 165, Estimated GFR 102, Est GFR ( Amer) 123, Glucose 87, Uric Acid 6.6, Calcium 8.7, AST 21, ALT 36 07/21/18 10:46: Magnesium 1.8 07/22/18 07:40: Magnesium 7.1 H D I & O for Last 24 hours: Intake & Output 07/19/18 07/20/18 07/21/18 07/22/18 11:59 11:59 11:59 11:59 Intake Total 3116 / 3116 Output Total 4250 / 4250 Balance -1134 / -1134 Weight 188 lb 188 lb - Constitutional no acute distress Assessment and Plan (1) Preeclampsia in period Current visit: Yes Status: Acute Category: Medical Code(s): O14.95 - Unspecified pre-eclampsia, complicating the puerperium - Assessment and plan all Dx Assessment and Plan for all problems:: We will continue with magnesium sulfate until later this afternoon when she will have had 24 hours of magnesium sulfate. We will continue with the labetalol 200 mg twice daily. If she is doing well tomorrow we will plan to send her home.
[2018-07-23 16:45] VITALS: BP 138/82
--- NOTE | 2018-07-23 17:00 | Discharge Summary ---
General - General Admission date:: 07/21/18 Discharge date: 07/23/18 HPI HPI: She is a 27-year-old 2 para 2 who is about a week and she came in with increased blood pressure in my office. As result that she was admitted for blood pressure control. Hospital Course Hospital Course: Received 24 hours of IV magnesium sulfate and her labetalol was started at 200 mg twice daily. This was subsequently increased to 400 mg twice daily and I also started her on nifedipine 30 mg XL. Her blood pressure is still up and down but mostly normalized. She denies any headache. Her blood work was all normal. We are going to send her home today to follow-up with me in 48 hours time. Objective Vital signs: Temp Pulse Resp BP Pulse Ox 98.8 F 63 18 138/82 95 07/23/18 16:04 07/23/18 16:30 07/23/18 16:04 07/23/18 16:30 07/23/18 16:04 no acute distress DS: Diagnosis - Discharge Diagnosis (1) Preeclampsia in period Status: Acute Discharge Plan - Patient Discharge Instructions ACTIVITY: No heavy lifting DIET: continue same diet Patient Instructions: High Blood Pressure (Hypertension) (Alternative Therapy), Lifestyle Habits May Lower Risk of Hypertension in Women, [facility] Post Discharge Instructions - Follow up Plan Disposition: Home, [facility] Medications: Home Medications Medication Instructions Recorded Confirmed Type 1 tab PO DAILY 03/11/18 07/21/18 History vitamin,calcium,jyzthbvb-nefv-ixrta acid tablet Fluticasone Propionate [Flonase 1 spray INTRANASAL DAILY 07/14/18 07/21/18 History Allergy Relief NS] Ibuprofen [Motrin 400mg 400 mg PO Q4HP PRN #40 tab 07/17/18 07/21/18 Rx tablet] Oxycodone HCl/Acetaminophen 1 - 2 tab PO Q4-6H PRN #20 tab 07/17/18 07/21/18 Rx [Percocet 5/325mg tablet] Labetalol HCl [Normodyne 100mg 400 mg PO BID #60 tab 07/23/18 Rx tablet] NIFEdipine [Nifedipine ER] 30 mg PO DAILY #30 tab.er.24 07/23/18 Rx Prescriptions/Medication Reconciliation: New NIFEdipine [Nifedipine ER] 30 mg PO DAILY #30 tab.er.24 Labetalol HCl [Normodyne 100mg tablet] 400 mg PO BID #60 tab Continued vitamin,calcium,jzquhciz-acci-oukzk acid tablet 1 tab PO DAILY Ibuprofen [Motrin 400mg tablet] 400 mg PO Q4HP PRN #40 tab PRN Reason: Moderate Pain Fluticasone Propionate [Flonase Allergy Relief NS] 1 spray INTRANASAL DAILY Oxycodone HCl/Acetaminophen [Percocet 5/325mg tablet] 1 - 2 tab PO Q4-6H PRN #20 tab PRN Reason: Severe Pain
== END 2018-07-23 17:30 | disposition home or self-care (01) | DRG 776 ==
LOC: OBOUT 10:16 → OB 10:18
PROVIDERS: ADMIT Nurse Practitioner Obstetrics & Gynecology; ATTEND Nurse Practitioner Obstetrics & Gynecology
DX: O14.95 Unspecified pre-eclampsia, complicating the puerperium

== ENCOUNTER → 2018-12-12 17:07 | Outpatient (CLI) | payer OTHER, SELFPAY ==
[2018-12-12 17:57] LABS: T4 (Thyroxine) 9.3 ug/dl (4.7-13.3); Thyroid Stimulating Hormone 2.08 uIU/ml (0.358-3.740)
[2018-12-12 18:47] LABS: HCG Qualitative, Serum Negative (Negative)
== END ==
PROVIDERS: Visit Provider Nurse Practitioner Family
DX: R10.2 Pelvic and perineal pain (principal); R10.84 Generalized abdominal pain
CPT/HCPCS: 82652; 84436; 84443; 84703

== ENCOUNTER → 2019-01-12 09:52 | Outpatient (CLI) | payer OTHER, SELFPAY | PROVIDERS: Visit Provider Nurse Practitioner Obstetrics & Gynecology | DX: Z32.00 Encounter for pregnancy test, result unknown (principal) | CPT/HCPCS: 36415; 84702 ==

== ENCOUNTER → 2019-01-26 14:46 | Outpatient (CLI) | payer OTHER, SELFPAY ==
--- NOTE | 2019-01-26 14:48 | US_ITS ---
PROCEDURE: US OB TRANSVAGINAL CLINICAL INDICATION: US OB Dates COMPARISON: OBBIOCOMP US OB BPP w/Fet-Mat S/D from 06/23/2018 FINDINGS: An intrauterine gestational sac is present with a pole with a crown-rump length of 1.97 cm correlating to gestational age of 8 weeks and 4 days. heart tones are present with an FHR of 170 bpm. Yolk sac is noted. Unremarkable adnexa IMPRESSION: Live intrauterine gestation at 8 weeks and 4 days. Estimated due date by Ultrasound is 09/03/2019 Dictated by: Fran Ocasio MD 01/26/2019 16:36 Electronically signed by Fran Ocasio MD in [place] 01/26/2019 16:36
== END ==
PROVIDERS: PCP Physician Assistant; Visit Provider Nurse Practitioner Obstetrics & Gynecology
DX: O26.841 Uterine size-date discrepancy, first trimester (principal)
CPT/HCPCS: 76817

== ENCOUNTER → 2019-02-09 08:58 | Outpatient (CLI) | payer OTHER, SELFPAY ==
--- NOTE | 2019-02-09 09:00 | US_ITS ---
PROCEDURE: US GALLBLADDER CLINICAL INDICATION: US Gallbladder Vomiting, abdominal pain COMPARISON: No exams were available for comparison FINDINGS: Pancreas: Unremarkable/Not well seen Liver: Unremarkable. There is appropriate direction of blood flow within a non dilated portal vein. Right kidney: Unremarkable appearing. No hydronephrosis. Gallbladder: There are multiple gallstones present. No gallbladder wall thickening, pericholecystic fluid, or biliary dilatation IMPRESSION: Cholelithiasis Dictated by: Fran Ocasio MD 02/09/2019 14:13 Electronically signed by Fran Ocasio MD in [facility] 02/09/2019 14:13
== END ==
PROVIDERS: PCP Emergency Medicine; Visit Provider Nurse Practitioner Obstetrics & Gynecology
DX: R10.9 Unspecified abdominal pain (principal)
CPT/HCPCS: 76705

== ENCOUNTER → 2019-04-06 14:31 | Outpatient (CLI) | payer OTHER, SELFPAY ==
--- NOTE | 2019-04-06 14:32 | US_ITS ---
PROCEDURE: US OB /MATERNAL DETAIL CLINICAL INDICATION: US OB Complete Anatomy exam COMPARISON: US OB TRANSVAGINAL from 01/26/2019 FINDINGS: Single viable intrauterine gestation. Cephalic position. Placenta: Posteriorplacenta grade 1. There is average amount fluid. The cervix appears satisfactory. Closed and measuring 4 cm in length measured transabdominally. Complete survey performed and was unremarkable on the submitted images as in PACS. No discrete anomalies identified on survey imaging by technologist. Active fetus. Three-vessel cord with satisfactory umbilical cord insertion. 4- chamber heart noted. Survey of brain & ventricles Unremarkable. Face and neck survey unremarkable. Diaphragm and chest views unremarkable. Abdomen: Both kidneys noted and unremarkable. Stomach noted and satisfactory. Spine: Survey of the spine satisfactory with no anomalies identified nor imaged. Both arms and legs noted. Amniotic Fluid: Adequate. Maternal adnexa: No significant findings. Measurements: Average ultrasound age 17weeks 6days. Gestational Age 17weeks 6days Estimated due date by ultrasound age 0609/08/2019. Estimated weight 212g BPD = 17weeks 5days HC = 17weeks 3days AC = 17weeks 6days FL = 18weeks 1day Growth Percentile= 12 percent% Heart Rate = 143bpm Cerebellum = 19weeks Humerus = 18weeks 2days HC/AC is 1.17 CI is 0.76 FL/BPD is 0.69 FL/AC is 0.22 IMPRESSION: There is a single live fetus in cephalic presentation with an average ultrasound age of 17 weeks and 6 days. All parameters correlate with no obvious anomalies. Please see above for detail. Dictated by: Fran Ocasio MD 04/07/2019 09:50 Electronically signed by Fran Ocasio MD in [facility] 04/07/2019 09:50
== END ==
PROVIDERS: PCP Emergency Medicine; Visit Provider Nurse Practitioner Obstetrics & Gynecology
DX: Z36.0 Encounter for antenatal screening for chromosomal anomalies (principal)
CPT/HCPCS: 76811

== ENCOUNTER → 2019-06-04 08:16 | Outpatient (CLI) | payer OTHER, SELFPAY ==
[2019-06-04 09:07] LABS: Basophils % 0.3 % (0.1-2.0); Eosinophils # 0.1 K/mm3 (0.0-0.4); Eosinophils % 0.8 % (0.1-12.0); Hematocrit 38.6 % (37.0-47.0); Hemoglobin 12.9 g/dL (12.2-16.2); Lymphocytes # 2.1 K/mm3 (0.7-4.5); Mean Corpuscular HGB Conc 33.4 g/dL (31.8-35.4); Mean Corpuscular Hemoglobin 30.4 pg (27.0-31.2); Mean Corpuscular Volume 91.2 fl (81-99); Mean Platelet Volume 8.6 fl (7.4-10.4); Monocytes # 0.6 K/mm3 (0.1-1.0); Monocytes % 4.2 % (1.7-9.3); Neutrophils % 79.8 % (37.0-80.0); Platelet Count 228 K/mm3 (142-424); Red Blood Count 4.24 M/mm3 (4.20-5.40); White Blood Count 13.8 K/mm3 (4.8-10.8)
[2019-06-04 09:25] LABS: Glucose,Fasting 82 mg/dl (74-100)
[2019-06-04 10:19] LABS: Glucose 1 Hour 123 mg/dL (74-100)
[2019-06-05 10:32] LABS: HIV Screen 4th Generation wRfx Non Reactive (Non Reactive); Hepatitis B Surface Antigen Negative (Negative); Hepatitis C Antibody <0.1 s/co ratio (0.0-0.9); Rubella Antibodies, IgG 1.42 index (Immune >0.99)
[2019-06-05 13:59] LABS: Rapid Plasma Reagin Ab Titer Non Reactive (NonRea<1:1)
== END ==
PROVIDERS: Visit Provider Nurse Practitioner Obstetrics & Gynecology
DX: Z34.90 Encounter for supervision of normal pregnancy, unspecified, unspecified trimester (principal)
CPT/HCPCS: 36415; 82951; 85025; 86592; 86703; 86762; 86850; 87340; 87380; G0432

== ENCOUNTER → 2019-07-30 14:23 | Outpatient (CLI) | payer OTHER, SELFPAY ==
--- NOTE | 2019-07-30 14:24 | US_ITS ---
PROCEDURE: US OB FOLLOW UP CLINICAL INDICATION: SGA Small for gestational age, follow-up COMPARISON: US OB /MATERNAL DETAIL from 04/06/2019 FINDINGS: There is a single live fetus present which is in cephalic presentation. heart and body motion noted. Cervix is closed and measures 5 cm in length. Placenta is posterior and grade 1. Average ultrasound age is 35 weeks and 1 day. BPD is 34 weeks 5 days, OFD 35 weeks 5 days, HC 34 weeks 5 days, AC 35 weeks 4 days, FL 35 weeks 2 days. Heart rate is 150 beats per minute. All parameters correlate. The URBANO is 12 cm. Estimated weight is 2638 g which is 55 percentile. IMPRESSION: Live IUP at 35 weeks 1 day in cephalic presentation with an estimated weight 2638 g which is 55th percentile. Please see above for detail URBANO is 12 cm which is within normal limits Dictated by: Fran Ocasio MD 07/30/2019 16:52 Electronically signed by Fran Ocasio MD in [facility] 07/30/2019 16:52
== END ==
PROVIDERS: PCP Nurse Practitioner Obstetrics & Gynecology; Visit Provider Nurse Practitioner Obstetrics & Gynecology
DX: O36.5990 Maternal care for other known or suspected poor fetal growth, unspecified trimester, not applicable or unspecified (principal)
CPT/HCPCS: 76816; 76819

== ENCOUNTER → 2019-08-04 17:04 | Outpatient (CLI) | payer OTHER, SELFPAY | PROVIDERS: Visit Provider Nurse Practitioner Obstetrics & Gynecology | DX: Z34.90 Encounter for supervision of normal pregnancy, unspecified, unspecified trimester (principal) | CPT/HCPCS: 86403 ==

== ENCOUNTER → 2019-08-27 09:55 | Outpatient (CLI) | payer OTHER, SELFPAY ==
[2019-08-27 10:15] LABS: Basophils % 0.4 % (0.1-2.0); Eosinophils # 0.1 K/mm3 (0.0-0.4); Hematocrit 33.7 % (37.0-47.0); Hemoglobin 11.9 g/dL (12.2-16.2); Lymphocytes # 2.4 K/mm3 (0.7-4.5); Mean Corpuscular HGB Conc 35.3 g/dL (31.8-35.4); Mean Corpuscular Volume 90.8 fl (81-99); Mean Platelet Volume 9.4 fl (7.4-10.4); Monocytes # 0.4 K/mm3 (0.1-1.0); Monocytes % 4.7 % (1.7-9.3); Neutrophils # 6.3 K/mm3 (1.8-7.8); Neutrophils % 67.9 % (37.0-80.0); Platelet Count 157 K/mm3 (142-424); Red Blood Count 3.72 M/mm3 (4.20-5.40); Red Cell Distribution Width 14.9 % (11.5-17.5); White Blood Count 9.3 K/mm3 (4.8-10.8)
[2019-08-27 10:44] LABS: Chloride 106 mmol/L (98-107); Sodium 136 mmol/L (136-145)
[2019-08-27 10:47] LABS: Blood Urea Nitrogen 8 mg/dl (7-17); Estimated Glomerular Filt Rate 148 ml/min (>60); GFR (African American) 179 ML/MIN (>60)
[2019-08-27 10:48] LABS: Calcium 9.1 mg/dl (8.4-10.2); Carbon Dioxide 24 mmol/L (22.0-30.0); Glucose 77 mg/dl (74-100)
[2019-08-27 11:07] LABS: Coronavirus 19 IgG Antibody Positive (Negative); Coronavirus 19 IgM Antibody Negative (Negative)
== END ==
PROVIDERS: Visit Provider Nurse Practitioner Obstetrics & Gynecology
DX: Z34.90 Encounter for supervision of normal pregnancy, unspecified, unspecified trimester (principal)
CPT/HCPCS: 36415; 80048; 85025; 86328

== ENCOUNTER 2019-08-28 05:33 | Inpatient (IN) | payer OTHER, SELFPAY ==
--- NOTE | 2019-08-26 10:01 | SUR.PREOP ---
08/26/2019 @ 1000--PHONE CALL MADE TO PATIENT. PATIENT UNDERSTANDS THAT LAB WORK AND COVID TESTING NEEDS TO BE COMPLETED BEFORE 1000 ON 08/27/2019. PATIENT UNDERSTANDS IF LAB WORK AND COVID-19 TESTS ARE NOT COMPLETED BY 12PM ON THAT DATE, THE SURGERY SCHEDULED WILL BE CANCELLED AND RESCHEDULED FOR ANOTHER TIME.
--- NOTE | 2019-08-27 12:09 | SUR.PREOP ---
08/27/2019--SPOKE TO LAB ABOUT PATIENTS POSITIVE IGG. POSITIVE RESULTS FORWARDED TO DR. GONZALEZ'S STAFF-RANDY TOOK THE PHONE CALL AND WILL RELAY THE MESSAGE.
[2019-08-28] VITALS (10 sets, daily range): BP systolic 108–129; BP diastolic 55–87; PULSE 83–110; RESP 12–27; TEMP 36.1–36.8; O2SAT 92–98; BMI 31.6; BMI 32.5
[2019-08-28 06:11] LABS: Microscopic, Urine URINE MICROSCOPIC (MICROSCOPIC)
[2019-08-28 06:17] LABS: Basophils % 0.4 % (0.1-2.0); Eosinophils # 0.1 K/mm3 (0.0-0.4); Eosinophils % 0.7 % (0.1-12.0); Hematocrit 33.6 % (37.0-47.0); Hemoglobin 12.2 g/dL (12.2-16.2); Lymphocytes # 2.9 K/mm3 (0.7-4.5); Mean Corpuscular HGB Conc 36.4 g/dL (31.8-35.4); Mean Corpuscular Hemoglobin 31.9 pg (27.0-31.2); Mean Corpuscular Volume 87.7 fl (81-99); Mean Platelet Volume 9.1 fl (7.4-10.4); Monocytes # 0.5 K/mm3 (0.1-1.0); Monocytes % 4.1 % (1.7-9.3); Neutrophils # 8.2 K/mm3 (1.8-7.8); Neutrophils % 69.9 % (37.0-80.0); Platelet Count 153 K/mm3 (142-424); Red Blood Count 3.83 M/mm3 (4.20-5.40); Red Cell Distribution Width 14.8 % (11.5-17.5); White Blood Count 11.8 K/mm3 (4.8-10.8)
[2019-08-28 06:21] LABS: Anion Gap 13.7 mEq/L (5-15); Blood Urea Nitrogen 10 mg/dl (7-17); Calcium 9.2 mg/dl (8.4-10.2); Carbon Dioxide 20 mmol/L (22.0-30.0); Chloride 104 mmol/L (98-107); Creatinine Clearance Estimated 237 mL/min (50-200); Estimated Glomerular Filt Rate 148 ml/min (>60); GFR (African American) 179 ML/MIN (>60); Glucose 87 mg/dl (74-100); Potassium 3.7 mmoL/L (3.5-5.1); Sodium 134 mmol/L (136-145)
[2019-08-28 06:22] LABS: Appearance,Urine CLEAR (Clear); Bilirubin,Urine Negative (Negative); Blood, Urine Negative (Negative); Color,Urine YELLOW (Yellow); Glucose,Urine (UA) Negative (Negative); Ketones,Urine TRACE (Negative); Leukocyte Esterase,Urine Negative (Negative); Nitrate,Urine Negative (Negative); Protein,Urine Negative (Negative); Specific Gravity, Urine 1.025 (1.005-1.030); Urobilinogen,Urine 0.2 EU/dl (0.2)
[2019-08-28 06:51] LABS: Bacteria,Urine Trace /lpf
--- NOTE | 2019-08-28 07:10 | P.PN_ITS ---
[facility] Anesthesia Checklist - Patient Identification Patient Identification: Arm Band, Verbal (Name & ) - Structural Data Admitted From: Home Planned Operative Procedure/s: Repeat , bilateral salpingectomy Consent for Planned Operative Procedure(s) Verified: Yes Verified Documents: Surgical Consent, History and Physical - NPO Status Verified Time NPO: 22:30 - Chart Verification Results Verified: CBC, BMP - Additional verifications Patient : Yes Anesthesia Reactions: No - Airway Assessment C-Spine Mobility Assessed: Yes TMJ Mobility Assessed: Yes Dentition: Good Dentition - Neurological Assessment Level of Consciousness: Awake, Alert, Appropriate, Follows Commands Hx Seizures: No Numbness or tingling in extremities: No - Anesthesia Plan Anesthesia Risk discussed: Yes Anesthesia Plan: Verified ASA Class: II Anesthesia Type: Spinal [facility] History I have reviewed the patient's past medical history: Yes Medical History: Reports:: Anxiety, Depression Denies:: Cancer, Diabetes Mellitus Type 1, Diabetes Mellitus Type 2, Internal Pacemaker, MRSA *Have you ever received a pneumonia vaccine?: No *Have you received a flu vaccine this season?: No Comment:: black's palsy Anesthesia experience/problems:: none Other Surgeries: Yes: . No: Pacemaker Amputation: No Fractures: No - *Social History Smoking Status: Never smoker Alcohol Intake: never Alcohol Intake Frequency:: other Substance Use Type: denies use *Occupational Status:: employed Housing: apartment Household Members: children *Travel in the last 8 weeks: None - Psychiatric History Pschychiatric History:: Reports:: Anxiety Family Hx:: No significant family history Para: 2
[2019-08-28 07:53] LABS: Cord Blood PH 7.33 (7.35-7.45)
--- NOTE | 2019-08-28 08:29 | HMH.OPNOTE ---
Date of procedure: 08/28/19 Pre-op Diagnosis:: Term , previous section, desire for sterilization Post-op Diagnosis:: Term , previous section desires sterilization Procedure performed:: Repeat lower segment transverse section and bilateral salpingectomy Surgeon:: Keshav Clark MD Icing Machine Operator(s):: Corine Bolton HVAC R TECH:: Tye Jeffrey Anesthesia: spinal Estimated blood loss (mL): 500 Clinical Note:: She is a 29-year-old 3 para 2 who was 39 and 3 weeks gestational age. She has had 2 previous sections and as result of that was offered repeat lower segment transverse section at term. She also expressed desire for sterilization. The risks and benefits of surgery as well as the irreversibility of bilateral salpingectomy were discussed with the patient prior to surgery. Operative findings:: She delivered a liveborn female child at 7:46 AM on the morning of August 28, 2019. The baby had Apgars of 8 at 1 minute and 9 at 5 minutes. pH was 7.33. Ovaries and tubes appeared normal although the tubes were somewhat adherent to the ovaries indicating possible previous infection. Operative note:: She was taken to the operating room where spinal anesthesia was found be adequate. She was prepped and draped in normal sterile fashion in the supine position with a leftward tilt. A Stoner catheter was in the bladder. A Pfannenstiel skin incision was made with knife then carried through to the underlying layer of fascia with cautery. The fascia was opened in the midline with cautery and extended laterally using Noble scissors. Anabel clamps were applied to the superior aspect of the fascial incision which was tented up and the underlying rectus muscles dissected off using cautery. The Anabel clamps were then applied to the inferior aspect of the fascial incision which in a similar fashion was tented up and the underlying rectus muscles dissected off using cautery. The rectus muscles were then in the midline, the peritoneum identified, and entered sharply with Metzenbaum scissors. This incision was then extended superiorly and inferiorly with cautery. We had good visualization of the bladder inferiorly. The bladder peritoneum was then opened in the midline and extended laterally using Metzenbaum scissors. A bladder flap was created digitally. Transverse incision was made through the uterine muscle to the amnion. This incision was then extended laterally using fingers traction. The amnion was entered sharply with knife. There was clear amniotic fluid. The 's head was then delivered atraumatically. A loose nuchal cord was then reduced. This was followed by the anterior shoulder and the rest of the infant's body atraumatically. The oropharynx and nasopharynx were bulb suctioned. The infant was then handed off to Dr. Pastrana. Who assigned Apgars of 8 at 1 minute and 9 at 5 minutes. We then obtained cord blood as well as cord pH. The pH was 7.33. Using gentle traction on the cord and countertraction on the fundus I was able to easily deliver the placenta intact. It had a normal three-vessel cord. The uterus was then cleared of clots and debris . The uterus was then exteriorized from the abdominal cavity. The uterine incision was then closed using running 0 Vicryl suture in a locked fashion. A second layer of the same suture was used to imbricate the first layer. The bladder peritoneum was then closed using running 2-0 Vicryl suture in a locked fashion. The gutters and cul-de-sac were then cleared of clots and debris . Once again hemostasis was assured. We then performed a bilateral salpingectomy. The right tube was grasped with a Bradly and the tube was dissected from the ovary. There were number adhesions between the fallopian tube and ovary. The tube was then grasped with a [place]ango once again using cautery I cauterized along the mesosalpinx. We then cauterized across the proximal
--- NOTE | 2019-08-28 08:36 | HMH.OBAPHP ---
OB - H&P: HPI Antepartum - History of Present Illness Chief complaint: Term , previous section, desire for sterilization History of present illness: She is a 29-year-old 3 para 2 who is 39 and 3 weeks gestational age. She has had 2 previous sections and as result of that was offered repeat lower segment transverse section at term. She also expressed desire for sterilization. The risks and benefits of surgery as well as the irreversibility of bilateral salpingectomy were discussed with the patient prior to surgery. Prior to her surgery we did COVID testing and she was found to be positive for IgG antibodies. She was quite sick and February and had severe cough as well as shortness of breath. I suspect she may have had the COVID virus at that time. - History of Present Criteria for establishing EDC:: LMP confirmed by 1st trimester US care: good care Ultrasounds: normal 1st trimester US, normal mid trimester US Obstetrical complications: previous Medical complications: none - Labs Blood type: A (+) positive Rubella: immune RPR/VDRL: nonreactive GBS status: negative HBsAG: negative [facility] History I have reviewed the patient's past medical history: Yes Medical History: Reports:: Anxiety, Depression, Hypertension Denies:: Cancer, Diabetes Mellitus Type 1, Diabetes Mellitus Type 2, Internal Pacemaker, MRSA, Seizures *Have you ever received a pneumonia vaccine?: No *Have you received a flu vaccine this season?: No Anesthesia experience/problems:: none Other Surgeries: Yes: . No: Pacemaker Amputation: No Fractures: No - *Social History Smoking Status: Never smoker Alcohol Intake: never Alcohol Intake Frequency:: other Substance Use Type: denies use *Occupational Status:: employed Housing: apartment Household Members: children *Travel in the last 8 weeks: None - Psychiatric History Pschychiatric History:: Reports:: Anxiety, Depression Family Hx:: No significant family history Para: 2 Review of Systems - Review of Systems Review of systems:: pertinent systems reviewed and negative unless documented below Meds Home Medications Medication Instructions Recorded Confirmed Type pediatric multivitamin no.76 1 tab PO DAILY 02/10/19 08/28/19 History RX: Ferrous Sulfate 325 mg PO DAILY 08/28/19 08/28/19 History Allergies Allergy/AdvReac Type Severity Reaction Status Date / Time No Known Allergies Allergy Verified 08/11/19 10:27 OB - H&P: Exam - Physical Exam Vital signs: Temp Pulse Resp BP Pulse Ox 98.0 F 100 H 18 120/87 98 08/28/19 05:57 08/28/19 05:57 08/28/19 05:57 08/28/19 05:57 08/28/19 05:57 - Constitutional no acute distress - Routine HEENT Exam Head: Present: normocephalic Eye: Present: EOMI, PERRL ENT: Present: mucous membranes moist - Routine Neck Exam Present: supple, full ROM - Routine Respiratory Exam Absent: accessory muscle use (good air entry bilaterally), respiratory distress, wheezes, crackles - Routine Cardiovascular Exam Present: RRR. Absent: murmur - Routine Abdominal Exam Present: soft, normoactive bowel sounds. Absent: tenderness, distended, guarding - Routine Rectal Exam Patient deferred: visual exam, digital exam - Routine Exam Patient deferred: external exam, groin exam, perineal exam - Routine Extremities Exam Present: full ROM. Absent: cyanosis, edema - Routine Skin Exam Present: intact. Absent: cyanosis - Routine Neurological Exam Present: alert, oriented X3 - Routine Psychiatric Exam Present: normal affect OB - Results - Labs Labs: Short CBC 08/28/19 Range/Units 05:55 WBC 11.8 H D (4.8-10.8) K/mm3 Hgb 12.2 (12.2-16.2) g/dL Hct 33.6 L (37.0-47.0) % Plt Count 153 (142-424) K/mm3 BMP 08/28/19 05:55 Sodium 134 L Potassium 3.7 Chloride 104 Carbon Dioxide 20 L BUN 10 Creatinine 0.50 L G
--- NOTE | 2019-08-28 08:37 | HMH.ANESI ---
[facility] Anesthesia Record Part I Intake, IV Amount: 800 Estimated blood loss (mL): 500 Urine output (mL): 400 Blood Products used (#): none Blood Pressure: 129/85 SaO2: 97 Pulse Rate: 110 Respiratory Rate: 12 Temperature: 97.6 F Patient is:: Awake, Stable Stable to PACU at:: 08:30
[2019-08-28 12:29] LABS: Barbiturates Screen,Urine Negative ng/ml (<200)
[2019-08-28 12:30] LABS: Benzodiazepines Screen,Urine Negative ng/ml (<200)
[2019-08-28 12:31] LABS: Cannabinoid Screen,Urine Negative ng/ml (<50)
[2019-08-28 12:32] LABS: Methadone Screen,Urine Negative ng/ml (<300); Opiate Screen,Urine Negative ng/ml (<300)
[2019-08-28 12:33] LABS: Phencyclidine Screen,Urine Negative ng/ml (<25)
[2019-08-28 12:35] LABS: Amphetamine/Metha Screen,Urine Negative ng/ml (<1000)
[2019-08-28 14:26] LABS: Cocaine Screen,Urine Negative ng/ml (<300)
--- NOTE | 2019-08-28 16:11 | HMH.ANESII ---
[facility] Anesthesia Record Part II Discharge Time: 09:30 Destination: Obstetric PACU nurse assessment reviewed?: Yes Patient Condition:: Good Anesthesia Complications:: None Swallowing reflex intact?: Yes Cyanosis?: No Blood Pressure: 125/80 Pulse Rate: 83 Temperature: 96.9 F Mental Status: Alert & Oriented Pain level:: 0 Nausea and/or vomitting:: Nauseated Intake, IV Amount: 0 Comments:: O2sat 94% on RA
--- NOTE | 2019-08-28 17:05 | SUR.OPER ---
0746- live born female delivered apgars are 8, 9, & 9
[2019-08-28 17:12] LABS: Microscopic,Cath URINE MICROSCOPIC (MICROSCOPIC)
[2019-08-28 18:18] LABS: Appearance,Urine/Cath CLEAR (Clear); Bilirubin,Cath Negative (Negative); Blood, Urine/Cath Negative (Negative); Color,Urine/Cath YELLOW (Yellow); Glucose,Urine/Cath (UA) Negative (Negative); Ketones,Urine/Cath Negative (Negative); Leukocyte Esterase,Cath Negative (Negative); Nitrate,Cath Negative (Negative); Protein,Urine/Cath Negative (Negative); Urobilinogen,Cath 0.2 EU/dl (0.2)
[2019-08-29 04:10] VITALS: BP 111/78; PULSE 81; RESP 20; TEMP 36.6
[2019-08-29 05:40] LABS: Hematocrit 31.8 % (37.0-47.0)
--- NOTE | 2019-08-29 10:40 | P.PN_ITS ---
Internal Medicine - PN: Subj *Date: 08/29/19 *Time: 10:40 Interval history: She is doing well. She is eating and drinking and ambulating. She is bottlefeeding. Her lochia is normal. Exam Vital signs and Labs for Last 24 Hours: Temp Pulse Resp BP Pulse Ox 97.9 F 81 20 111/78 95 08/29/19 04:10 08/29/19 04:10 08/29/19 04:10 08/29/19 04:10 08/28/19 09:15 Laboratory Results - last 24 hr 08/28/19 05:55: Urine Opiates Screen Negative, Urine Methadone Screen Negative, Ur Barbituates Screen Negative, Ur Phencyclidine Scrn Negative, Ur Amphetamines Screen Negative, U Benzodiazepines Scrn Negative, Urine Cocaine Screen Negative, U Marijuana (THC) Screen Negative 08/28/19 07:35: Urine Color Yellow, Urine Appearance Clear, Urine pH 7.0, Ur Specific [place] 1.020, Urine Protein Negative, Urine Glucose (UA) Negative, Urine Ketones Negative, Urine Blood Negative, Urine Nitrate Negative, Urine Bilirubin Negative, Urine Urobilinogen 0.2, Ur Leukocyte Esterase Negative, Urine RBC 3-5 08/28/19 07:50: Cord ABG pH 7.33 L 08/29/19 05:20: Hgb 11.0 L, Hct 31.8 L I & O for Last 24 hours: Intake & Output 08/26/19 08/27/19 08/28/19 08/29/19 11:59 11:59 11:59 11:59 Intake Total 800 / 800 0 / 0 Balance 800 / 800 0 / 0 Weight 196 lb - Constitutional no acute distress Assessment and Plan (1) Previous section complicating Current visit: Yes Status: Acute Category: Surgical Code(s): O34.219 - Maternal care for unspecified type scar from previous delivery (2) Delivery by section of full-term Current visit: Yes Status: Acute Category: Medical Code(s): O82 - Encounter for delivery without indication (3) Status post tubal ligation at time of delivery, current hosp Current visit: Yes Status: Acute Category: Surgical Code(s): O80 - Encounter for full-term uncomplicated delivery; Z30.2 - Encounter for sterilization (4) COVID-19 virus IgG antibody detected Current visit: Yes Status: Acute Category: Medical Code(s): Z01.84 - Encounter for antibody response examination - Assessment and plan all Dx Assessment and Plan for all problems:: She is doing well. We will plan to send her home in 48 hours
--- NOTE | 2019-08-30 13:09 | HMH.ACPN2 ---
Internal Medicine - PN: Subj *Date: 08/30/19 *Time: 13:09 Interval history: She is doing well this morning. Her pain is reasonably well controlled. We will plan to send her home tomorrow. Exam Vital signs and Labs for Last 24 Hours: Temp Pulse Resp BP Pulse Ox 97.9 F 81 20 111/78 95 08/29/19 04:10 08/29/19 04:10 08/29/19 04:10 08/29/19 04:10 08/28/19 09:15 I & O for Last 24 hours: Intake & Output 08/28/19 08/29/19 08/30/19 08/31/19 11:59 11:59 11:59 11:59 Intake Total 800 / 800 0 / 0 Balance 800 / 800 0 / 0 Weight 196 lb - Constitutional no acute distress - *Routine HEENT Exam Head: Present: normocephalic Eye: Present: EOMI, PERRL ENT: Present: mucous membranes moist Assessment and Plan (1) Previous section complicating Current visit: Yes Status: Acute Category: Surgical Code(s): O34.219 - Maternal care for unspecified type scar from previous delivery (2) Delivery by section of full-term infant Current visit: Yes Status: Acute Category: Medical Code(s): O82 - Encounter for delivery without indication (3) Status post tubal ligation at time of delivery, current hosp Current visit: Yes Status: Acute Category: Surgical Code(s): O80 - Encounter for full-term uncomplicated delivery; Z30.2 - Encounter for sterilization (4) COVID-19 virus IgG antibody detected Current visit: Yes Status: Acute Category: Medical Code(s): Z01.84 - Encounter for antibody response examination - Assessment and plan all Dx Assessment and Plan for all problems:: She continues to do well. We will plan to send her home in the morning.
--- NOTE | 2019-08-31 08:33 | P.DS_ITS ---
General - General Admission date:: 08/28/19 Discharge date: 08/31/19 HPI HPI: She is a 29-year-old 3 now para 3 who was 39 weeks gestational age. She has had 2 previous sections and as result of that was offered repeat lower segment transverse section at term. She also expressed desire for sterilization. Hospital Course Hospital Course: On August 28, 2019 she underwent a repeat lower segment transverse section and bilateral salpingectomy. She delivered a liveborn female child at 7:46 AM. The baby had Apgars of 8 at 1 minute and 9 at 5 minutes. Baby weighed 6 pounds 14 ounces and was 18-1/2 inches long. pH was 7.33. She has done well and has remained afebrile throughout her hospitalization. She is eating and drinking and ambulating. She is bottlefeeding. She has a positive blood, she is rubella immune and was group B streptococcus negative. Her cashier or checker stock clerk is Dr. Pastrana. She is discharged home to follow-up with me in approximately 2 weeks time. She was given the usual instructions with respect to limiting her activity, driving and sexual activity. She was given a prescription for Percocet 5/325 number 20 tablets. She will also take ibuprofen. Her condition on discharge is stable and improved. Rhogam Administration: Not Indicated Objective Vital signs: Temp Pulse Resp BP Pulse Ox 97.9 F 81 20 111/78 95 08/29/19 04:10 08/29/19 04:10 08/29/19 04:10 08/29/19 04:10 08/28/19 09:15 no acute distress - *Routine HEENT Exam Head: Present: normocephalic Eye: Present: EOMI, PERRL ENT: Present: mucous membranes moist DS: Diagnosis - Discharge Diagnosis (1) Previous section complicating Status: Acute (2) Delivery by section of full-term Status: Acute (3) Status post tubal ligation at time of delivery, current hosp Status: Acute (4) COVID-19 virus IgG antibody detected Status: Acute Discharge Plan - Patient Discharge Instructions ACTIVITY: No heavy lifting DIET: continue same diet - Follow up Plan Disposition: Home, Self-Residential Medications: Home Medications Medication Instructions Recorded Confirmed Type pediatric multivitamin no.76 1 tab PO DAILY 02/10/19 08/28/19 History Ferrous Sulfate 325 mg PO DAILY 08/28/19 08/28/19 History Oxycodone HCl/Acetaminophen 1 - 2 tab PO Q4-6H PRN #20 tablet 08/31/19 Rx [Percocet 5/325mg tablet] Prescriptions/Medication Reconciliation: New Oxycodone HCl/Acetaminophen [Percocet 5/325mg tablet] 1 - 2 tab PO Q4-6H PRN #20 tablet PRN Reason: Severe Pain Continued pediatric multivitamin no.76 1 tab PO DAILY Ferrous Sulfate 325 mg PO DAILY - Problem Reconciliation Problems Reviewed?: Yes
--- NOTE | 2019-08-31 11:31 | SW/DCPLANNER ---
Addendum entered by Sheba Medina 09/25/19 10:26: Infant cord screen is NEGATIVE. Original Note: I have received a referral on this patient regarding positive THC during . I did speak with this patient this morning: father of (Anselmo Klein 06/06/90) was also present in patients room. Infant female (Shyla Frazier) was born on 08/28/2017. Patient, infant and other child will reside at [address] [place] [address]. Patient has had past Social Service involvement with first child (Barbara Frazier 07/14/18) due to THC use. Patient did test positive for THC on 01/21/19: beginning of . was negative at delivery. Patient will be using WIC and is already established. Patient is not interested in HANDS. Patient does have: carseat, crib, diapers, clothing, and formula. Patient will discharge home today. Patients nurse (Gris) did state that patient is appropriate with .
== END 2019-08-31 12:45 | disposition home or self-care (01) | DRG 819 ==
PROVIDERS: Admitting Provider Nurse Practitioner Obstetrics & Gynecology; PCP Emergency Medicine; Visit Provider Nurse Practitioner Obstetrics & Gynecology
PROC: 0UT70ZZ Resection of Bilateral Fallopian Tubes, Open Approach (ICD-10-PCS; CPT 59514; principal; 2019-08-28 07:30)
DX: O34.211 Maternal care for low transverse scar from previous cesarean delivery (principal); N85.8 Other specified noninflammatory disorders of uterus; Z3A.39 39 weeks gestation of pregnancy; Z37.0 Single live birth; Z30.2 Encounter for sterilization; Z86.19 Personal history of other infectious and parasitic diseases
CPT/HCPCS: 59514; 58700; 36415; 59025; 80048; 80305; 81001; 82800; 85014; 85018; 85025; 86328; 86850; 88302; 96374; J2405

== ENCOUNTER → 2019-09-02 10:57 | Outpatient (CLI) | payer OTHER, SELFPAY ==
--- NOTE | 2019-09-02 11:00 | XR_ITS ---
PROCEDURE: XR CHEST 2V CLINICAL HISTORY: XRay AP and LATERAL for Chest Pain-Post Chest pain COMPARISON: CXR2V XR chest 2V from 11/28/2017 FINDINGS: The cardiomediastinal silhouette and pulmonary vascularity are within normal limits. There is a faint nodular opacity in the right midlung at 15 mm. The remaining lungs are clear. No effusions or infiltrates. No acute bony abnormalities. IMPRESSION: 15 mm faint nodular opacity in the right midlung. CT may provide further evaluation. Follow-up is suggested to confirm stability Dictated by: Fran Ocasio MD 09/02/2019 11:44 Electronically signed by Fran Ocasio MD in [facility] 09/02/2019 11:44
== END ==
PROVIDERS: PCP Emergency Medicine; Visit Provider Nurse Practitioner Obstetrics & Gynecology
DX: Z39.2 Encounter for routine postpartum follow-up (principal)
CPT/HCPCS: 71046

== ENCOUNTER 2019-09-02 20:33 | Inpatient (IN) | payer OTHER, SELFPAY ==
[2019-09-02] VITALS (10 sets, daily range): BP systolic 131–148; BP diastolic 86–108; PULSE 60–94; RESP 16–18; TEMP 36.7–37.1; O2SAT 94–98; BMI 31.6
--- NOTE | 2019-09-02 19:36 | PC.NURSE ---
pt arrived to floor ambulatory c/o headache that feels like rubberband around head , pt denies nausea today but states she was nauseous yesterday, pt c/o blurred vision and dizziness yesterday but none today, +2 patellar reflexes, no edema noted, pt denies epigastric pain. Dr Clark ordered to start IV and collect PIH profile and notify him of results.
[2019-09-02 20:22] LABS: Microscopic, Urine URINE MICROSCOPIC (MICROSCOPIC)
[2019-09-02 20:27] LABS: Basophils # 0.1 K/mm3 (0-0.2); Basophils % 0.8 % (0.1-2.0); Eosinophils # 0.1 K/mm3 (0.0-0.4); Eosinophils % 1.6 % (0.1-12.0); Hematocrit 32.4 % (37.0-47.0); Hemoglobin 11.2 g/dL (12.2-16.2); Lymphocytes # 2.2 K/mm3 (0.7-4.5); Lymphocytes % 32.3 % (10-50); Mean Corpuscular HGB Conc 34.6 g/dL (31.8-35.4); Mean Corpuscular Hemoglobin 31.9 pg (27.0-31.2); Mean Platelet Volume 8.6 fl (7.4-10.4); Monocytes # 0.3 K/mm3 (0.1-1.0); Monocytes % 3.8 % (1.7-9.3); Neutrophils # 4.3 K/mm3 (1.8-7.8); Neutrophils % 61.5 % (37.0-80.0); Platelet Count 231 K/mm3 (142-424); Red Blood Count 3.52 M/mm3 (4.20-5.40); Red Cell Distribution Width 13.9 % (11.5-17.5); White Blood Count 6.9 K/mm3 (4.8-10.8)
[2019-09-02 20:33] LABS: Appearance,Urine CLEAR (Clear); Bilirubin,Urine Negative (Negative); Blood, Urine 2+ (Negative); Color,Urine YELLOW (Yellow); Glucose,Urine (UA) Negative (Negative); Ketones,Urine Negative (Negative); Leukocyte Esterase,Urine Negative (Negative); Nitrate,Urine Negative (Negative); PH,Urine 6.5 (5.0-8.5); Protein,Urine Negative (Negative); Urobilinogen,Urine 0.2 EU/dl (0.2)
[2019-09-02 20:37] LABS: Chloride 107 mmol/L (98-107); Sodium 138 mmol/L (136-145)
--- NOTE | 2019-09-02 20:37 | PC.NURSE ---
Dr Clark called at this time for status update on patient, bp results and pts c/o intense headache. new orders to admit to labor and delivery, start magnesium sulfate 4g bolus and then 2g per hour, pt may have percocet 5/325mg 1-2 tabs q4h prn for pain, repeat pih in am, lactated ringers at 75 ml/ hr. phone orders repeated and verified at this time
[2019-09-02 20:38] LABS: Potassium 3.5 mmoL/L (3.5-5.1); WBC,Urine Occasional #/hpf (0-3)
[2019-09-02 20:39] LABS: Bacteria,Urine Trace /lpf; RBC,Urine 20-50 #/hpf (0-3); Squamous Epithelial Cell,Urine Occasional #/hpf (0-5)
[2019-09-02 20:40] LABS: Blood Urea Nitrogen 19 mg/dl (7-17); Creatinine Clearance Estimated 192 mL/min (50-200); Estimated Glomerular Filt Rate 120 ml/min (>60); GFR (African American) 145 ML/MIN (>60)
[2019-09-02 20:41] LABS: Alanine Aminotransferase 18 U/L (12-78); Anion Gap 9.5 mEq/L (5-15); Aspartate Amino Transferase 23 U/L (14-36); Carbon Dioxide 25 mmol/L (22.0-30.0); Glucose 93 mg/dl (74-100); Magnesium 1.7 mg/dl (1.6-2.3); Uric Acid 6.9 mg/dl (2.5-6.2)
[2019-09-02 21:08] LABS: D-Dimer 2100 ng/mL (0-400)
[2019-09-02 21:11] LABS: INR 0.97 (0.9-1.1)
[2019-09-02 21:12] LABS: Activated Partial Thrombo Time 22.7 seconds (23.6-34.0)
--- NOTE | 2019-09-02 21:19 | PC.NURSE ---
pt c/o intense headache at this time. pt states pain is a 10/10 at this time, medicated for pain at this time, cold wash cloth provided and lights turned down. magnesium infusion continues at this time. will continue to monitor
[2019-09-02 21:25] LABS: Fibrinogen 410 mg/dL (204-500)
--- NOTE | 2019-09-02 21:44 | PC.NURSE ---
critical d dimer called to dr grubbs at this time, all pih profile reviewed with , new orders to restart labetalol 200mg po bid. phone orders repeated and verified at this time.
--- NOTE | 2019-09-02 22:09 | PC.NURSE ---
pt is resting comfortably at this time with cold washcloth on head. no distress noted. magnesium continues to infuse well at this time, vs monitoring continues, will continue to monitor
--- NOTE | 2019-09-02 22:52 | PC.NURSE ---
pt up to bathroom at this time, pt grimacing in pain continues to state headache is no better at this time, medicated with additional pain meds at this time will continue to monitor
--- NOTE | 2019-09-02 23:36 | PC.NURSE ---
pt is sitting up watching tv at this time, eating dinner, pt states headache is starting to improve, pt now rates pain 7/10, no nausea and no blurred vision at this time, patellar reflexes +2, magnesium infusion continues no distress noted will continue to monitor a this time
[2019-09-03] VITALS (29 sets, daily range): BP systolic 115–171; BP diastolic 75–111; PULSE 67–91; RESP 16–20; TEMP 36.4–36.6; O2SAT 94–100
--- NOTE | 2019-09-03 00:37 | PC.NURSE ---
pt is resting comfortably at this time with eyes closed no distress noted will continue to monitor at this time
--- NOTE | 2019-09-03 01:19 | PC.NURSE ---
pt ambulating in room without difficulty,pt states headache improved at this time rates pain 6/10 on this time no needs at this time
--- NOTE | 2019-09-03 04:40 | PC.NURSE ---
PT HAS SLEPT OFF AND ON THROUGHOUT SHIFT, PT CONTINUES TO C/O HEADACHE WITH LIGHT SENSITIVITY 10/10 ON PAIN SCALE WITH PAIN MEDICATION HEADACHE WILL GO TO A 6/10. PT CONTINUES TO DENY DIZZINESS OR NAUSEA AT THIS TIME. REFLEXES +2 AT PATELLAR, CLONUS ABSENT. LUNGS CLEAR TO AUSCULTATE. BP AMD HEADACHE REPORTED TO DR GONZALEZ AT THIS TIME NO NEW ORDERS. WILL CONTINUE TO MONITOR AT THIS TIME
--- NOTE | 2019-09-03 07:15 | PC.NURSE ---
report received from chriss cisse rn
--- NOTE | 2019-09-03 07:20 | PC.NURSE ---
REPORT GIVEN TO Wallace GOMEZ RN
--- NOTE | 2019-09-03 07:50 | PC.NURSE ---
DENIES ANY BLURRED VISION, NAUSEA, EPIGASTRIC PAIN,AND DIZZINESS. DOES COMPLAIN OF A DULL HEADACHE. SHE SAYS LIGHT MAKES IT WORSE. SITTING IN DARK ROOM. NO EDEMA NOTED. PULSES 2+ AND REFLEXES 2+ WITH NO CLONUS SUSTAINED. WILL CONTINUE TO CLOSELY MONITOR
[2019-09-03 07:59] LABS: Chloride 104 mmol/L (98-107)
[2019-09-03 08:00] LABS: Potassium 3.5 mmoL/L (3.5-5.1); Sodium 139 mmol/L (136-145)
[2019-09-03 08:02] LABS: Alanine Aminotransferase 16 U/L (12-78); Aspartate Amino Transferase 22 U/L (14-36); Blood Urea Nitrogen 16 mg/dl (7-17); Creatinine Clearance Estimated 164 mL/min (50-200); Estimated Glomerular Filt Rate 100 ml/min (>60); GFR (African American) 121 ML/MIN (>60)
[2019-09-03 08:03] LABS: Anion Gap 9.5 mEq/L (5-15); Calcium 8.4 mg/dl (8.4-10.2); Carbon Dioxide 29 mmol/L (22.0-30.0); Glucose 99 mg/dl (74-100); Magnesium 5.4 mg/dl (1.6-2.3); Uric Acid 7.4 mg/dl (2.5-6.2)
[2019-09-03 08:17] LABS: Activated Partial Thrombo Time 22.1 seconds (23.6-34.0); Fibrinogen 6 mg/dL (204-500); INR 0.96 (0.9-1.1); Prothrombin Time 9.9 seconds (9.4-11.8)
[2019-09-03 08:45] LABS: Basophils % 0.6 % (0.1-2.0); Eosinophils # 0.2 K/mm3 (0.0-0.4); Eosinophils % 2.9 % (0.1-12.0); Hematocrit 33.8 % (37.0-47.0); Hemoglobin 11.6 g/dL (12.2-16.2); Lymphocytes # 2.1 K/mm3 (0.7-4.5); Lymphocytes % 34.4 % (10-50); Mean Corpuscular HGB Conc 34.2 g/dL (31.8-35.4); Mean Corpuscular Hemoglobin 31.4 pg (27.0-31.2); Mean Corpuscular Volume 91.7 fl (81-99); Mean Platelet Volume 8.4 fl (7.4-10.4); Monocytes # 0.4 K/mm3 (0.1-1.0); Neutrophils # 3.4 K/mm3 (1.8-7.8); Neutrophils % 56.2 % (37.0-80.0); Platelet Count 209 K/mm3 (142-424); Red Blood Count 3.69 M/mm3 (4.20-5.40); Red Cell Distribution Width 14.1 % (11.5-17.5); White Blood Count 6.1 K/mm3 (4.8-10.8)
[2019-09-03 09:01] LABS: D-Dimer 2310 ng/mL (0-400)
--- NOTE | 2019-09-03 10:59 | HMH.HP ---
*Admission Date: 09/02/19 *Chief complaint: Headache, increased blood pressure *History of present illness: She is a 29-year-old 3 para 3 who is 5 days post section. She was seen in the office yesterday and had slightly increased blood pressure. She had a mild headache. She had brisk reflexes. I started her on labetalol yesterday morning. She said that she had some chest pain and shortness of breath so we ordered a chest x-ray which was completely normal. She called me later in the evening and said that she was having an extreme headache that was like a band around her head. I told her to come on into labor and delivery and we would admit her for her increased blood pressure. [facility] History I have reviewed the patient's past medical history: Yes Medical History: Reports:: Anxiety, Depression, Hypertension Denies:: Cancer, Diabetes Mellitus Type 1, Diabetes Mellitus Type 2, Internal Pacemaker, MRSA, Seizures *Have you ever received a pneumonia vaccine?: No *Have you received a flu vaccine this season?: No Other Surgeries: Yes: , Tubal Ligation. No: Pacemaker Amputation: No Fractures: No - *Social History Smoking Status: Never smoker Alcohol Intake: never Alcohol Intake Frequency:: other Substance Use Type: denies use *Occupational Status:: employed Housing: apartment Household Members: children *Travel in the last 8 weeks: None - Psychiatric History Pschychiatric History:: Reports:: Anxiety, Depression Family Hx:: No significant family history Para: 3 Review of Systems - Review of Systems Review of systems:: pertinent systems reviewed and negative unless documented below Meds Home Medications Medication Instructions Recorded Confirmed Type pediatric multivitamin no.76 1 tab PO DAILY 02/10/19 09/03/19 History RX: Ferrous Sulfate 325 mg PO DAILY 08/28/19 09/03/19 History Oxycodone HCl/Acetaminophen 1 - 2 tab PO Q4-6H PRN #20 tab 08/31/19 09/03/19 Rx [Percocet 5/325mg tablet] RX: Labetalol HCl 200 mg PO BID 09/03/19 09/03/19 History Allergies Allergy/AdvReac Type Severity Reaction Status Date / Time No Known Allergies Allergy Verified 09/02/19 10:30 Exam Vital signs and Labs for Last 24 Hours: Temp Pulse Resp BP Pulse Ox 97.8 F 77 20 136/87 96 09/03/19 07:45 09/03/19 08:45 09/03/19 10:00 09/03/19 10:00 09/03/19 08:45 Laboratory Results - last 24 hr 09/02/19 19:50: WBC 6.9, RBC 3.52 L, Hgb 11.2 L, Hct 32.4 L, MCV 92.0, MCH 31.9 H, MCHC 34.6, RDW 13.9, Plt Count 231, MPV 8.6, Neut % (Auto) 61.5, Lymph % (Auto) 32.3, [place] % (Auto) 3.8, Eos % (Auto) 1.6, Baso % (Auto) 0.8, Neut # (Auto) 4.3, Lymph # (Auto) 2.2, [place] # (Auto) 0.3, Eos # (Auto) 0.1, Baso # (Auto) 0.1 09/02/19 19:50: PT 10.0, INR 0.97, APTT 22.7 L, Fibrinogen 410, D-Dimer 2100 H* 09/02/19 19:50: Sodium 138, Potassium 3.5, Chloride 107, Carbon Dioxide 25, Anion Gap 9.5, BUN 19 H, Creatinine 0.60, Estimated Creat Clear 192, Estimated GFR 120, Est GFR ( Amer) 145, Glucose 93, Uric Acid 6.9 H, Calcium 9.0, AST 23, ALT 18 09/02/19 19:50: Urine Color Yellow, Urine Appearance Clear, Urine pH 6.5, Ur Specific [place] 1.020, Urine Protein Negative, Urine Glucose (UA) Negative, Urine Ketones Negative, Urine Blood 2+, Urine Nitrate Negative, Urine Bilirubin Negative, Urine Urobilinogen 0.2, Ur Leukocyte Esterase Negative, Urine RBC 20-50, Urine WBC Occasional, Ur Squamous Epith Cells Occasional, Urine Bacteria Trace 09/02/19 19:50: Magnesium 1.7 09/03/19 07:21: WBC 6.1, RBC 3.69 L, Hgb 11.6 L, Hct 33.8 L, MCV 91.7, MCH 31.4 H, MCHC 34.2, RDW 14.1, Plt Count 209, MPV 8.4, Neut % (Auto) 56.2, Lymph % (Auto) 34.4, [place] % (Auto) 6.0, Eos % (Auto) 2.9, Baso % (Auto) 0.6, Neut # (Auto) 3.4, Lymph # (Auto) 2.1, [place] # (Auto) 0.4, Eos # (Auto) 0.2, Baso # (Auto) 0.0 09/03/19 07:21: PT 9.9, INR 0.96, APTT 22.1 L, Fibrinogen 6 L, D-Dimer 2310 H* 09/03/19 07:21: Sodium 139, Potassium 3.5, Chloride 104, Carbon Dioxide 29,
--- NOTE | 2019-09-03 11:03 | P.PN_ITS ---
Internal Medicine - PN: Subj *Date: 09/03/19 *Time: 11:03 Interval history: Her blood pressure has improved this morning. It is in the 130-140/80-90 range. She is on magnesium sulfate 2 g an hour. She is taking labetalol 200 mg twice daily. I will consider increasing the dosage of labetalol to 200 mg 3 times daily. She continues to have a severe headache. We will try Fioricet and see if this helps. Exam Vital signs and Labs for Last 24 Hours: Temp Pulse Resp BP Pulse Ox 97.8 F 77 20 136/87 96 09/03/19 07:45 09/03/19 08:45 09/03/19 10:00 09/03/19 10:00 09/03/19 08:45 Laboratory Results - last 24 hr 09/02/19 19:50: WBC 6.9, RBC 3.52 L, Hgb 11.2 L, Hct 32.4 L, MCV 92.0, MCH 31.9 H, MCHC 34.6, RDW 13.9, Plt Count 231, MPV 8.6, Neut % (Auto) 61.5, Lymph % (Auto) 32.3, [place] % (Auto) 3.8, Eos % (Auto) 1.6, Baso % (Auto) 0.8, Neut # (Auto) 4.3, Lymph # (Auto) 2.2, [place] # (Auto) 0.3, Eos # (Auto) 0.1, Baso # (Auto) 0.1 09/02/19 19:50: PT 10.0, INR 0.97, APTT 22.7 L, Fibrinogen 410, D-Dimer 2100 H* 09/02/19 19:50: Sodium 138, Potassium 3.5, Chloride 107, Carbon Dioxide 25, Anion Gap 9.5, BUN 19 H, Creatinine 0.60, Estimated Creat Clear 192, Estimated GFR 120, Est GFR ( Amer) 145, Glucose 93, Uric Acid 6.9 H, Calcium 9.0, AST 23, ALT 18 09/02/19 19:50: Urine Color Yellow, Urine Appearance Clear, Urine pH 6.5, Ur Specific [place] 1.020, Urine Protein Negative, Urine Glucose (UA) Negative, Urine Ketones Negative, Urine Blood 2+, Urine Nitrate Negative, Urine Bilirubin Negative, Urine Urobilinogen 0.2, Ur Leukocyte Esterase Negative, Urine RBC 20- 50, Urine WBC Occasional, Ur Squamous Epith Cells Occasional, Urine Bacteria Trace 09/02/19 19:50: Magnesium 1.7 09/03/19 07:21: WBC 6.1, RBC 3.69 L, Hgb 11.6 L, Hct 33.8 L, MCV 91.7, MCH 31.4 H, MCHC 34.2, RDW 14.1, Plt Count 209, MPV 8.4, Neut % (Auto) 56.2, Lymph % (Auto) 34.4, [place] % (Auto) 6.0, Eos % (Auto) 2.9, Baso % (Auto) 0.6, Neut # (Auto) 3.4, Lymph # (Auto) 2.1, [place] # (Auto) 0.4, Eos # (Auto) 0.2, Baso # (Auto) 0.0 09/03/19 07:21: PT 9.9, INR 0.96, APTT 22.1 L, Fibrinogen 6 L, D-Dimer 2310 H* 09/03/19 07:21: Sodium 139, Potassium 3.5, Chloride 104, Carbon Dioxide 29, Anion Gap 9.5, BUN 16, Creatinine 0.70, Estimated Creat Clear 164, Estimated GFR 100, Est GFR ( Amer) 121, Glucose 99, Uric Acid 7.4 H, Calcium 8.4, Magnesium 5.4 H D, AST 22, ALT 16 I & O for Last 24 hours: Intake & Output 08/31/19 09/01/19 09/02/19 09/03/19 11:59 11:59 11:59 11:59 Intake Total 240 / 240 Output Total 2700 / 2700 Balance -2460 / -2460 Weight 190 lb - Constitutional no acute distress - *Routine HEENT Exam Head: Present: normocephalic Eye: Present: EOMI, PERRL ENT: Present: mucous membranes moist - *Routine Neck Exam Present: supple, full ROM Assessment and Plan (1) Preeclampsia in period Current visit: Yes Status: Acute Category: Medical Code(s): O14.95 - Unspecified pre-eclampsia, complicating the puerperium - Assessment and plan all Dx Assessment and Plan for all problems:: She has hypertension with a headache. Her blood pressures have mostly normalized. She is on magnesium sulfate. We will try to get her headaches under control. We will continue with admission. We will try and get her blood pressure as low as possible as well.
--- NOTE | 2019-09-03 11:35 | PC.NURSE ---
MEDICATED PER MAY FOR PAIN. STATED MED I GAVE EARLIER DID NOTHING.
--- NOTE | 2019-09-03 12:10 | INFXCTL.NOTE ---
PATIENT BP 140/100- HEADACHE AND CHEST TIGHTNESS. LUNGS REMAINS CTA AND RESP 18 (UNLABORED). REFLEXES BRISK AND NO CLONUS. WILL NOTIFY
--- NOTE | 2019-09-03 12:15 | PC.NURSE ---
DR. GONZALEZ HERE ROUNDING. REPORT GIVEN ON PATIENTS BP 140/100 AND PATIENT HAVING HEADACHE STILL ALONG WITH CHEST TIGHTNESS. ME ORDERS FOR LABETALOL 20MG IV NOW.
--- NOTE | 2019-09-03 12:25 | HMH.ACPN2 ---
Internal Medicine - PN: Subj *Date: 09/03/19 *Time: 12:25 Interval history: She continues to feel unwell. Her blood pressure is 140/100. She has a severe headache. She also has chest pain. She experienced the chest pain the last time she had her increased blood pressure with her last child. We will go ahead and start IV labetalol. Exam Vital signs and Labs for Last 24 Hours: Temp Pulse Resp BP Pulse Ox 97.8 F 77 20 125/100 H 96 09/03/19 07:45 09/03/19 08:45 09/03/19 10:00 09/03/19 11:00 09/03/19 08:45 Laboratory Results - last 24 hr 09/02/19 19:50: WBC 6.9, RBC 3.52 L, Hgb 11.2 L, Hct 32.4 L, MCV 92.0, MCH 31.9 H, MCHC 34.6, RDW 13.9, Plt Count 231, MPV 8.6, Neut % (Auto) 61.5, Lymph % (Auto) 32.3, Bureau % (Auto) 3.8, Eos % (Auto) 1.6, Baso % (Auto) 0.8, Neut # (Auto) 4.3, Lymph # (Auto) 2.2, Bureau # (Auto) 0.3, Eos # (Auto) 0.1, Baso # (Auto) 0.1 09/02/19 19:50: PT 10.0, INR 0.97, APTT 22.7 L, Fibrinogen 410, D-Dimer 2100 H* 09/02/19 19:50: Sodium 138, Potassium 3.5, Chloride 107, Carbon Dioxide 25, Anion Gap 9.5, BUN 19 H, Creatinine 0.60, Estimated Creat Clear 192, Estimated GFR 120, Est GFR ( Amer) 145, Glucose 93, Uric Acid 6.9 H, Calcium 9.0, AST 23, ALT 18 09/02/19 19:50: Urine Color Yellow, Urine Appearance Clear, Urine pH 6.5, Ur Specific [place] 1.020, Urine Protein Negative, Urine Glucose (UA) Negative, Urine Ketones Negative, Urine Blood 2+, Urine Nitrate Negative, Urine Bilirubin Negative, Urine Urobilinogen 0.2, Ur Leukocyte Esterase Negative, Urine RBC 20-50, Urine WBC Occasional, Ur Squamous Epith Cells Occasional, Urine Bacteria Trace 09/02/19 19:50: Magnesium 1.7 09/03/19 07:21: WBC 6.1, RBC 3.69 L, Hgb 11.6 L, Hct 33.8 L, MCV 91.7, MCH 31.4 H, MCHC 34.2, RDW 14.1, Plt Count 209, MPV 8.4, Neut % (Auto) 56.2, Lymph % (Auto) 34.4, Bureau % (Auto) 6.0, Eos % (Auto) 2.9, Baso % (Auto) 0.6, Neut # (Auto) 3.4, Lymph # (Auto) 2.1, Bureau # (Auto) 0.4, Eos # (Auto) 0.2, Baso # (Auto) 0.0 09/03/19 07:21: PT 9.9, INR 0.96, APTT 22.1 L, Fibrinogen 6 L, D-Dimer 2310 H* 09/03/19 07:21: Sodium 139, Potassium 3.5, Chloride 104, Carbon Dioxide 29, Anion Gap 9.5, BUN 16, Creatinine 0.70, Estimated Creat Clear 164, Estimated GFR 100, Est GFR ( Amer) 121, Glucose 99, Uric Acid 7.4 H, Calcium 8.4, Magnesium 5.4 H D, AST 22, ALT 16 I & O for Last 24 hours: Intake & Output 09/01/19 09/02/19 09/03/19 09/04/19 11:59 11:59 11:59 11:59 Intake Total 240 / 240 Output Total 2700 / 2700 Balance -2460 / -2460 Weight 190 lb - Constitutional no acute distress - *Routine HEENT Exam Head: Present: normocephalic Eye: Present: EOMI, PERRL ENT: Present: mucous membranes moist - *Routine Neurological Exam Present: alert, oriented X3, moving all extremities, normal speech She has brisk knee reflexes. She has 2 beats of clonus. Assessment and Plan (1) Preeclampsia in period Current visit: Yes Status: Acute Category: Medical Code(s): O14.95 - Unspecified pre-eclampsia, complicating the puerperium - Assessment and plan all Dx Assessment and Plan for all problems:: She has a severe headache and brisk reflexes. She is on oral labetalol. Her heart rate is 77. Her blood pressures 140/100. We will go ahead and start IV labetalol 20 mg.
--- NOTE | 2019-09-03 12:35 | PC.NURSE ---
LABETALOL 20MG IV GIVEN OVER 5 MIN IVP- PATIENT HOOKED UP TO HEART MONITOR. PT TOLERATED WELL 1230 136/91 1232 145/96 1234 137/104 1236 140/99 1245 134/93 , 98 %, AND 78 HEART RATE 12:50 141/97
--- NOTE | 2019-09-03 13:30 | PC.NURSE ---
CALLED DR. GONZALEZ- REPORT GIVEN ON PATIENTS BP STILL ELEVATED AT 140/100- ORDERS TO GIVE 40MG LABETALOL IV NOW. ALL ORDERS R/V
--- NOTE | 2019-09-03 13:38 | PC.NURSE ---
40MG IV LABETALOL GIVEN OVER SLOW IVP. 13:36 172/111, 62, 98% 13:39 150/110. 82, 98% 13:43 162/101 , 97%, 70 13:46 159/93 13:49 143/91 PT REPORTS H/A HAS EASED UP. NO SOA OR CHEST TIGHTNESS
--- NOTE | 2019-09-03 16:05 | PC.NURSE ---
NO ACUTE CHANGES NOTED ON REASSESSMENT. PT. STILL COMPLAINS OF AN OFF AND ON H/A. RATING H/A PAIN A 10/10. NO BLURRED VISION OR DIZZINESS, NO EPIGASTRIC PAIN. PATIENT URINARY OUTPUT HAS BEEN FINE TODAY. NO EDEMA NOTED. REFLEXES 2+ AND NO CLONUS. LUNGS CTA AND BELLY SOUNDS ACTIVE X4. INCISION COVERED WITH STERI STRIPS. WILL CONT. TO CLOSELY MONITOR PATIENT
[2019-09-03 16:17] LABS: OB Protein,Urine (DIP) Negative (Negative)
--- NOTE | 2019-09-03 17:15 | PC.NURSE ---
DINNER TRAY GIVEN TO PATIENT. HEADACHE IS COMING AND GOING PATIENT STATES. WILL CONTINUE TO CLOSELY MONITOR. PT REPORTS THAT SHE IS NAUSEOUS
--- NOTE | 2019-09-03 18:00 | PC.NURSE ---
WENT IN TO REASSESS PATIENT- PATIENT TALKING ON THE PHONE GIGGLING. ASKED IF HEADACHE WAS BETTER SHE STATES A LITTLE. NO DISTRESS NOTED. WILL CONTINUE TO CLOSELY
--- NOTE | 2019-09-03 18:25 | PC.NURSE ---
SPOKE WITH DR. GONZALEZ. REPORT GIVEN. ORDERS TO GIVE DILAUDID 1MG EVERY 3 HOURS RATHER THAN 4 IF NEEDED. R/V
--- NOTE | 2019-09-03 18:40 | PC.NURSE ---
PATIENT STILL REPORTS H/A. BP IS 141/95- DENIES SEEING FLOATERS, NAUSEA, EPIGASTRIC PAIN. WILL CONTINUE TO CLOSELY MONITOR
--- NOTE | 2019-09-03 19:10 | PC.NURSE ---
REPORT TO Rylan RICARDO RN
--- NOTE | 2019-09-03 19:20 | PC.NURSE ---
Report received from Justin Mackey RN.
--- NOTE | 2019-09-03 20:25 | PC.NURSE ---
Assessment completed. Lungs CTA, Heart at RRR. BS present x4 quad. Low transverse incision noted to be clean and approximated steri strips remain intact. no drainage noted. BP noted to be at 141/91. Patellar reflex noted to be brisk. Pt. reports 10/10 rated headache and nausea, requests pain medication. Pain medication given last at 1747. Nurse informed pt. next dose available at 2147. Pt. v/u. Pt. reports wanting zofran, orange jello and ice for apple juice. Given. See EMAR for medication. Pt. denies further needs. Will continue to monitor.
[2019-09-03 20:59] LABS: OB Protein,Urine (DIP) Negative (Negative)
[2019-09-04] VITALS (18 sets, daily range): BP systolic 105–153; BP diastolic 54–103; PULSE 66–84; RESP 18–20; TEMP 36.5–37.3; O2SAT 93–99
--- NOTE | 2019-09-04 04:47 | PC.NURSE ---
Addendum entered by Erica Chadwick RN 09/04/19 05:05: Steri strips remain intact. Pt. rates pain at 8/10. Medication available at 05:00. Pt. v/u. Pt. denies further needs, will continue to monitor. Original Note: Reassessment completed. BP at 105/54, no acute changes since last assessment. Heart at RRR. Lungs CTA, Bowel sounds present x4 quads. Incision remains approximated, skin pink, no drainage noted. Steri stri[s remain intact.
[2019-09-04 05:09] LABS: OB Protein,Urine (DIP) Negative (Negative)
--- NOTE | 2019-09-04 05:50 | PC.NURSE ---
IV beeping. IV site noted to be cold and puffy. Infusion stopped. IV placed in LAC, Infusion restarted. Pt. Rates pain at 8/10. DIlaudid given, see EMAR. IV in LFA removed 2x2 with coban in place. Pt. instructed to elevate arm. Pt. v/u. Blood for Magnesium level drawn from right hand. Pt. tolerated well. Pt. denies further needs, will continue to monitor.
--- NOTE | 2019-09-04 07:10 | PC.NURSE ---
Report given to Garrett Joseph RN.
--- NOTE | 2019-09-04 09:35 | HMH.ACPN2 ---
Internal Medicine - PN: Subj *Date: 09/04/19 *Time: 09:35 Interval history: She continues to have a severe headache. She is taking Dilaudid 1 mg every 3 hours. She seems to be able to sleep between the doses of Dilaudid. Her blood pressure has now stabilized in the 120s over 70s. She is taking labetalol 200 mg every 8 hours. She is on magnesium sulfate 2 g an hour. Despite this she continues to have a severe headache. She says it is like a band around her head. Exam Vital signs and Labs for Last 24 Hours: Temp Pulse Resp BP Pulse Ox 98.0 F 75 18 128/69 97 09/04/19 07:52 09/04/19 08:28 09/04/19 08:28 09/04/19 08:28 09/04/19 08:28 Laboratory Results - last 24 hr 09/03/19 14:45: Urine Protein Negative 09/03/19 20:20: Urine Protein Negative 09/04/19 04:00: Urine Protein Negative 09/04/19 05:50: Magnesium 6.0 H D I & O for Last 24 hours: Intake & Output 09/01/19 09/02/19 09/03/19 09/04/19 11:59 11:59 11:59 11:59 Intake Total 240 / 240 1700 / 1700 Output Total 2700 / 4000 4200 / 4200 Balance -2460 / -3760 -2500 / -2500 Weight 190 lb - Constitutional no acute distress - *Routine HEENT Exam Head: Present: normocephalic Eye: Present: EOMI, PERRL ENT: Present: mucous membranes moist - *Routine Neurological Exam Present: alert, oriented X3, normal speech Her reflexes are now normal. There are no longer brisk. There is no clonus. Assessment and Plan (1) Preeclampsia in period Current visit: Yes Status: Acute Category: Medical Code(s): O14.95 - Unspecified pre-eclampsia, complicating the puerperium (2) Severe headache Current visit: Yes Status: Acute Category: Medical Code(s): R51 - Headache - Assessment and plan all Dx Assessment and Plan for all problems:: She continues to have a severe headache. We will make arrangements for her to have an MRI to rule out any intracranial pathology such as a thrombosis. Her blood pressure has now normalized. She does not have any neurologic deficits. She says that the headache feels like a band around her head. If the MRI is normal we will consider Imitrex for her headaches.
--- NOTE | 2019-09-04 10:38 | MR_ITS ---
PROCEDURE: MR HEAD/BRAIN WO CON CLINICAL INDICATION: SEVERE HEADACHE, POST Severe headache post with hypertension COMPARISON: No exams were available for comparison TECHNIQUE: Routine multiplanar multi echo sequences are performed without gadolinium enhancement. FINDINGS: No midline shift, mass effect, intracranial hemorrhage, or hydrocephalus is evident. No evidence of acute infarction. The cerebellopontine angles, cerebellum, and brainstem are unremarkable. The pituitary and optic chiasm are unremarkable. There is some irregularity of the posterior aspect of the corpus callosum body which is nonspecific and nonacute. This is of questionable clinical significance. The cranial cervical junction has an unremarkable appearance. No mastoid effusion or sinus air-fluid level. There is an area suspected vascular dilatation involving the right internal carotid artery cavernous portion. This measures approximately 6 mm. While this could be due to vascular tortuosity, 1 cannot exclude the possibility of an aneurysm. MRA of the brain is suggested for further evaluation. 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 This also could be due to vascular tortuosity or even volume averaging from air within the adjacent sphenoid sinus. Suggest MRA in this patient with severe headache. Dictated by: Fran Ocasio MD 09/04/2019 13:29 Electronically signed by Fran Ocasio MD in [place] 09/04/2019 13:29
--- NOTE | 2019-09-04 12:03 | PC.NURSE ---
saline locked iv, all jewelry removed, patient transferred via wheelchair to MRI at this time.
[2019-09-04 12:20] LABS: OB Protein,Urine (DIP) Negative (Negative)
--- NOTE | 2019-09-04 12:38 | PC.NURSE ---
PATIENT TRANSFERRED BACK TO HER ROOM VIA WHEELCHAIR. IV FLUSHED AT THIS TIME. FLUIDS RESTARTED AT ORDERED RATES.
--- NOTE | 2019-09-04 13:40 | PC.NURSE ---
1330 DR RUGGIERO, CALLED AND STATES HE RECOMMENDS MRA FOR A BETTER IMAGINE AFTER THIS MRI. DR GONZALEZ NOTIFIED AND ORDERED TO GO AHEAD WITH MRA. MRI CALL TO SCHEDULE, INSTRUCTED TO GET OKAY FROM [facility]. RELIEF PHARMACIST IRIS CHACKO NOTIFIED, OKAY GIVEN TO PROCEED WITH MRA TO BE DONE TODAY. MRI CALLED TO SCHEDULE MRA, TIME GIVEN OF 1420 TO HAVE PATIENT BACK DOWN TO MRI SUITE.
--- NOTE | 2019-09-04 13:43 | MR_ITS ---
PROCEDURE: MR ANGIO HEAD WO CON CLINICAL INDICATION: SEVERE HEADACHE, ABNORMAL FINDING ON MRI BRAIN COMPARISON: MR HEAD/BRAIN WO CON from 09/04/2019 TECHNIQUE: The [id number] images are performed without contrast with multi slab MIP and tumble MIP reformats FINDINGS: No definite aneurysm is apparent. No aneurysm, AVM, or major intracranial occlusive process is evident. There is some lobularity along the cavernous portion of the ICAs on both sides felt to be due to flow artifact which could be confirmed with CT angiogram if clinically warranted. No definite aneurysm apparent. There is persistent origin the left posterior cerebral artery as a normal variant. The IMPRESSION: No definite aneurysm, AVM, or major intracranial occlusive process evident. The abnormality noted on the MRI was probably related to tortuosity of the vessel and flow void artifact. Dictated by: Fran Ocasio MD 09/04/2019 15:42 Electronically signed by Fran Ocasio MD in [place] 09/04/2019 15:42
--- NOTE | 2019-09-04 14:20 | PC.NURSE ---
TRANSPORTED VIA WHEELCHAIR TO MRI AT THIS TIME,IV SALINE LOCKED, ALL JEWELRY REMOVED.
--- NOTE | 2019-09-04 15:22 | PC.NURSE ---
1505 patient transferred back from [facility] via wheelchair. IV remains saline locked. wrapped so patient can get into shower, having some vaginal bleeding. small amount went thru her shorts. 1515 in shower at this time. bedlinens changed at this time. 1520 dr shankar at bedside to talk with patient. informed him patient in shower. dr shankar ordered to stop mag at this time and saline lock IV. awaiting results of MRA and DR Shankar states he will call back with addition orders after discussing film results with DR RUGGIERO.
--- NOTE | 2019-09-04 15:57 | PC.NURSE ---
no acute changes to note from previous assessment. denies h/a at this time. vss. iv saline locked.
--- NOTE | 2019-09-04 17:54 | PC.NURSE ---
INCREASED BLOOD PRESSURE AT THIS TIME. PATIENTS BOYFRIEND LEFT EARLIER THIS MORNING, KEEPS STATING HE IS NOT TO BE FOUND.
--- NOTE | 2019-09-04 18:14 | PC.NURSE ---
PATIENT STATES H/A COMPLETELY GONE AT THIS TIME. STATES HER LEGS ARE CRAMPING AGAIN LIKE WHEN SHE WAS ADMITTED. DR GONZALEZ AWAKE. DR GONZALEZ TALKED WITH HER ABOUT HER RELATIONSHIP WITH S/O. PATIENT AGREES HE CAUSES HER A LOT OF STRESS AND ANXIETY. REPORTS SHE HAS BEEN ON MEDICATION IN THE PAST FOR ANXIETY BUT IT HAS BEEN A COUPLE OF YEARS. STATES SHES FEELING ANXIOUS AT THIS TIME AND WOULD LIKE TO TRY TO GET HERSELF CALMED DOWN BEFORE ANY FURTHER BP CHECKS DONE. STATES HER BOYFRIEND FINALLY ANSWERED HER PHONE CALL AND SHE HAS BEEN CRYING AND VERY UPSET OVER THE PAST HOUR. LIGHTS TURN DOWN. CALL LIGHT WITH REACH.
--- NOTE | 2019-09-04 19:11 | PC.NURSE ---
REPORT GIVEN TO Rylan RICARDO RN
--- NOTE | 2019-09-04 19:15 | PC.NURSE ---
Report received from Garrett Joseph RN
--- NOTE | 2019-09-04 20:50 | PC.NURSE ---
Assessment completed at this time. Lungs CTA, Heart at RRR. Bowel sounds present x4 quadrants. Low transverse incision noted to be approximated and have steri strips in place, no drainage noted. Pt. denies headache, leg cramps and chest pain. Pt. wishes to be discharged and states I feel much better can you see if he will let me go home. Nurse informed pt. of her BP at 149/95 and that her BP is elevated and MD won't discharge with BP remaining high. Pt. v/u and states Yeah but can you ask him anyway. Nurse verbalized again that MD won't discharge Pt. with BP high. Pt. v/u and remains adamant that MD be contacted for discharge. Pt. denies further needs
[2019-09-04 21:12] LABS: OB Protein,Urine (DIP) 2+ (Negative)
[2019-09-05] VITALS (7 sets, daily range): BP systolic 125–157; BP diastolic 71–97; PULSE 87; RESP 12–18; TEMP 37.1; O2SAT 97
--- NOTE | 2019-09-05 04:55 | PC.NURSE ---
Reassessment completed, no acute changes noted. Heart at RRR, Lungs CTA. Bowel sounds present x4 quadrants. Pt. denies pain. Pt. denies needs, will continue to monitor.
--- NOTE | 2019-09-05 07:16 | PC.NURSE ---
Report given to Ko Sánchez RN.
[2019-09-05 07:20] LABS: Magnesium 2.6 mg/dl (1.6-2.3)
--- NOTE | 2019-09-05 10:16 | HMH.DCSUM ---
General - General Admission date:: 09/02/19 Discharge date: 09/05/19 HPI HPI: She is a 29-year-old 3 para 3 who is 5 days post section. She was seen in the office yesterday and had slightly increased blood pressure. She had a mild headache. She had brisk reflexes. I started her on labetalol yesterday morning. She said that she had some chest pain and shortness of breath so we ordered a chest x-ray which was completely normal. She called me later in the evening and said that she was having an extreme headache that was like a band around her head. I told her to come on into labor and delivery and we would admit her for her increased blood pressure. Hospital Course Hospital Course: She was admitted to hospital and started on magnesium sulfate. She received a 4 g bolus and then 2 g an hour. We kept her on the magnesium sulfate for 2 days. Her blood pressures continue to be elevated so we elected to give her IV labetalol. This settled her blood pressure. She has been taking labetalol 200 mg every 8 H since admission. She had severe headache and this did not seem to go away throughout her entire hospitalization until the day prior to discharge. She did have an MRI as well as MRA and both of those were negative for any intracranial abnormalities. She did receive 1 dose of Imitrex subcutaneously on her day prior to discharge. This seemed to help with her headache. She is doing well now. There are no neurologic deficits. She denies any numbness or weakness. She will be discharged home this morning to follow-up with me in approximately 5 days time. She will continue with her vitamins and iron. She will continue with labetalol 200 mg 3 times daily. She will check her blood pressure at home. I told her if is greater than 160/100 she should call me. She was also given a prescription for Imitrex to take as needed for headache and no more than twice daily. If her headache is not improved with that she should come and see us again. She had a 5 days prior to admission and will continue to avoid heavy lifting, sexual activity or driving. Her condition on discharge is stable and improved. Objective Vital signs: Temp Pulse Resp BP Pulse Ox 98.7 F 87 18 135/97 H 97 09/05/19 08:50 09/05/19 08:50 09/05/19 08:50 09/05/19 10:00 09/05/19 08:50 no acute distress - *Routine HEENT Exam Head: Present: normocephalic Eye: Present: EOMI, PERRL ENT: Present: mucous membranes moist Results Labs on day of discharge: Labs from last 24 hours 09/05/19 09/04/19 09/04/19 06:35 20:00 11:10 Magnesium 2.6 H D Urine Protein 2+ Negative DS: Diagnosis - Discharge Diagnosis (1) Preeclampsia in period Status: Acute (2) Severe headache Status: Acute Discharge Plan - Patient Discharge Instructions ACTIVITY: No heavy lifting DIET: continue same diet Additional Instructions: Take medication as prescribed, return to hospital if condition worsens. Patient Instructions: DI for High Blood Pressure, DI for Pre-eclampsia, DI for Headache - Follow up Plan Follow up with: Keshav Clark MD [Primary Care Provider] - Disposition: Home, Self-Mcc Medications: Home Medications Medication Instructions Recorded Confirmed Type pediatric multivitamin no.76 1 tab PO DAILY 02/10/19 09/03/19 History RX: Ferrous Sulfate 325 mg PO DAILY 08/28/19 09/03/19 History Oxycodone HCl/Acetaminophen 1 - 2 tab PO Q4-6H PRN #20 tab 08/31/19 09/03/19 Rx [Percocet 5/325mg tablet] RX: Labetalol HCl 200 mg PO BID 09/03/19 09/03/19 History SUMAtriptan succinate [Imitrex 25 mg PO NEEDED PRN #10 tab 09/05/19 Rx 25mg Tablet] Prescriptions/Medication Reconciliation: New SUMAtriptan succinate [Imitrex 25mg Tablet] 25 mg PO NEEDED PRN #10 tab PRN Reason: Headache Continued pediatric multivitamin no.76 1 tab PO DAILY Oxycodone HC
--- NOTE | 2019-09-05 10:45 | PC.NURSE ---
Discharge education provided to pt at this time, questions encouraged and answered. Pt waiting for clinic pharmacy to bring medication and then will be ready for discharge. Pt refused wheelchair to private car, prefers to walk.
== END 2019-09-05 11:20 | disposition home or self-care (01) | DRG 776 ==
LOC: OBOUT 20:33 → OB 20:33
PROVIDERS: Admitting Provider Nurse Practitioner Obstetrics & Gynecology; PCP Nurse Practitioner Obstetrics & Gynecology; Visit Provider Nurse Practitioner Obstetrics & Gynecology
DX: Z86.19 Personal history of other infectious and parasitic diseases (principal); O14.15 Severe pre-eclampsia, complicating the puerperium
CPT/HCPCS: 36415; 70544; 70551; 71046; 80048; 81001; 81002; 83735; 84450; 84460; 84550; 85025; 85378; 85384; 85610; 85730; 94761; J2405

== ENCOUNTER 2020-01-08 11:37 | Emergency (ER) | payer OTHER, SELFPAY ==
[2020-01-08 11:55] VITALS: BP 151/111; PULSE 87; RESP 18; TEMP 36.3; O2SAT 96; BMI 28.3
--- NOTE | 2020-01-08 12:36 | HMH.EDUTC ---
[facility] [place] Disposition Clinical Impression: Back pain Qualifiers: Back pain location: thoracic back pain Chronicity: acute Back pain laterality: left Qualified Code(s): M54.6 - Pain in thoracic spine Disposition: Home, Self-Care Condition on Discharge: Good Instructions: Thoracic Back Pain Additional Instructions: Drink plenty of fluids. Take tylenol or ibuprofen for pain or fever. Take the medications as directed. Follow up with your regular doctor. GO TO THE ER FOR ANY WORSENING SYMPTOMS Prescriptions: predniSONE [Prednisone 20mg Tab] 20 mg PO BID 4 Days #8 tab Transmission Status: Received by [id number] Methocarbamol [Robaxin 500mg Tab] 500 mg PO BIDP PRN #30 tab PRN Reason: Muscle Spasm Transmission Status: Received by [id number] Referrals: Eddi Flynn MD [Primary Care Provider] - Time of Disposition: 12:47 Medical Decision Making - Medical Records Medical records reviewed: No: I reviewed the patient's medical records. - Jack Inquiry Pt receiving controlled substance: No Vital Signs: 01/08/20 11:55 01/08/20 12:53 Temperature 97.3 F L 97.3 F L Temperature Source Oral Oral Pulse Rate 87 Pulse Rate [Radial] 87 Respiratory Rate 18 18 Blood Pressure 151/111 H Blood Pressure [Right Arm] 151/111 H Blood Pressure Mean [Right Arm] 124 Blood Pressure Source Automatic Cuff Blood Pressure Source [Right Arm] Automatic Cuff Blood Pressure Position Sitting Blood Pressure Position [Right Arm] Sitting 02 Sat by Pulse Oximetry 96 Oxygen Delivery Method Room Air Room Air - Lab Data Lab results reviewed: Yes: I reviewed the patient's lab results. [facility] [place] HPI - General Stated complaint: Possible inflamed gallbladder Time Seen by Provider: 01/08/20 12:36 Mode of Arrival: Ambulatory Source of Information: Patient Limitations: No Limitations Description of Symptoms (Recalled from Triage Doc. by RN): gallbladder flare up. states her upper abdomen hurts all the way around to her back. HEENT Symptoms (Recalled from RN notes): No Resp Symptoms (Recalled from RN notes): No Skin Symptoms (Recalled from RN notes): No MS Symptoms (Recalled from RN notes): No Functional Status (Recalled from RN notes): wnl - History of Present Illness Provider Complaint: She c/o left middle back pain. She thinks that it is her gall bladder causing this. In the past when she was she was told that her gall bladder was causing her pain. This episode began 2 days ago. - Related Data Home Medications Medication Instructions Recorded Confirmed pediatric multivitamin no.76 1 tab PO DAILY 02/10/19 09/03/19 Ferrous Sulfate 325 mg PO DAILY 08/28/19 09/03/19 Previous Rx's Medication Instructions Recorded Oxycodone HCl/Acetaminophen 1 - 2 tab PO Q4-6H PRN #20 tab 08/31/19 [Percocet 5/325mg tablet] Labetalol HCl 200 mg PO TID #0 09/05/19 SUMAtriptan succinate [Imitrex 25 mg PO NEEDED PRN #10 tab 09/05/19 25mg Tablet] oxycodone-acetaminophen 5 mg-325 1 tab PO Q6H PRN #20 tab 09/11/19 mg tablet Methocarbamol [Robaxin 500mg Tab] 500 mg PO BIDP PRN #30 tab 01/08/20 predniSONE [Prednisone 20mg 20 mg PO BID 4 Days #8 tab 01/08/20 Tab] Allergies Allergy/AdvReac Type Severity Reaction Status Date / Time No Known Allergies Allergy Verified 09/02/19 10:30 - Worker's Comp Is this a Worker's Comp case?: No [facility] History - Hepatitis A Screen Drug use history?: No High risk sexual behaviors?: No History of sexually transmitted infection?: No Currently employed?: No Childcare worker?: No Do you have indoor plumbing?: Yes Do you have electricity?: Yes Attestation statement:: This patient has been screened for Hepatitis A risk factors. I have reviewed the patient's past medical history: Yes Medical History: Reports:: Anxiety, Depression, Hypertension Denies:: Cancer, Diabetes Mellitus Type 1, Diabetes Mellitus Type 2, Internal Pacemaker, MRS
[2020-01-08 12:53] VITALS: BP 151/111; PULSE 87; RESP 18; TEMP 36.3; O2SAT 96
== END 2020-01-08 12:54 | disposition home or self-care (01) ==
PROVIDERS: Emergency Provider Nurse Practitioner Family; PCP Emergency Medicine
DX: R10.11 Right upper quadrant pain (principal); M54.6 Pain in thoracic spine; F41.8 Other specified anxiety disorders; I10 Essential (primary) hypertension
CPT/HCPCS: 99201

== ENCOUNTER 2020-07-29 17:24 | Emergency (ER) | payer OTHER, SELFPAY ==
[2020-07-29 17:42] VITALS: BP 175/125; PULSE 82; RESP 16; TEMP 36.8; O2SAT 97; BMI 31.6
--- NOTE | 2020-07-29 18:18 | HMH.EDUTC ---
[facility] [place] Disposition Clinical Impression: Elevated blood pressure reading, Anxiety Disposition: Home, Self-Care Condition on Discharge: Good Instructions: Essential Hypertension, DI for Anxiety -- Adult Additional Instructions: Take the medications directed. Follow up with your primary care doctor for a recheck. GO TO THE ER FOR ANY WORSENING SYMPTOMS OR CONCERNS, ESPECIALLY ANY SUICIDAL OR HOMICIDAL IDEATIONS Prescriptions: hydrOXYzine HCL [Hydroxyzine HCl] 25 mg PO Q6HP PRN #30 tab PRN Reason: Anxiety Transmission Status: Received by [id number] lisinopriL [Lisinopril] 10 mg PO DAILY #30 tab Transmission Status: Received by [id number] Referrals: Eddi Flynn MD [Primary Care Provider] - Time of Disposition: 18:29 Medical Decision Making - Medical Records Medical records reviewed: No: I reviewed the patient's medical records. - Jack Inquiry Pt receiving controlled substance: No Vital Signs: 07/29/20 17:42 07/29/20 18:43 Temperature 98.3 F 98 F Temperature Source Oral Pulse Rate 87 Pulse Rate [Right] 82 Respiratory Rate 16 16 Blood Pressure 169/113 H Blood Pressure [Right Arm] 175/125 H Blood Pressure Mean [Right Arm] 141 Blood Pressure Source [Right Arm] Automatic Cuff Blood Pressure Position [Right Arm] Sitting 02 Sat by Pulse Oximetry 97 Oxygen Delivery Method Room Air [facility] [place] HPI - General Stated complaint: high BP Time Seen by Provider: 07/29/20 18:18 Mode of Arrival: Ambulatory Source of Information: Patient Limitations: No Limitations Description of Symptoms (Recalled from Triage Doc. by RN): pt has had htn for the past two weeks. previously she had only had issues during . pt is also having anxiety attacks. today it started when her shoulder and teeth had started hurting. HEENT Symptoms (Recalled from RN notes): No Resp Symptoms (Recalled from RN notes): No Skin Symptoms (Recalled from RN notes): No MS Symptoms (Recalled from RN notes): No Functional Status (Recalled from RN notes): anxiety attack - History of Present Illness Provider Complaint: She states that she has had elevated blood pressure for the past 2 weeks or so. In the past she was treated for hypertension while she was . She has had a tubal ligectomy and she is not now. She has also been having anxiety. She was on celexa before her last . This was stopped and it has not been restarted since her baby was born. - Related Data Home Medications Medication Instructions Recorded Confirmed pediatric multivitamin no.76 1 tab PO DAILY 02/10/19 09/03/19 Ferrous Sulfate 325 mg PO DAILY 08/28/19 09/03/19 Previous Rx's Medication Instructions Recorded Oxycodone HCl/Acetaminophen 1 - 2 tab PO Q4-6H PRN #20 tab 08/31/19 [Percocet 5/325mg tablet] Labetalol HCl 200 mg PO TID #0 09/05/19 SUMAtriptan succinate [Imitrex 25 mg PO NEEDED PRN #10 tab 09/05/19 25mg Tablet] oxycodone-acetaminophen 5 mg-325 1 tab PO Q6H PRN #20 tab 09/11/19 mg tablet Methocarbamol [Robaxin 500mg Tab] 500 mg PO BIDP PRN #30 tab 01/08/20 predniSONE [Prednisone 20mg 20 mg PO BID 4 Days #8 tab 01/08/20 Tab] hydrOXYzine HCL [Hydroxyzine HCl] 25 mg PO Q6HP PRN #30 tab 07/29/20 lisinopriL [Lisinopril] 10 mg PO DAILY #30 tab 07/29/20 Allergies Allergy/AdvReac Type Severity Reaction Status Date / Time No Known Allergies Allergy Verified 07/29/20 17:47 - Worker's Comp Is this a Worker's Comp case?: No [facility] History - Hepatitis A Screen Drug use history?: No High risk sexual behaviors?: No History of sexually transmitted infection?: No Currently employed?: No Childcare worker?: No Do you have indoor plumbing?: Yes Do you have electricity?: Yes Attestation statement:: This patient has been screened for Hepatitis A risk factors. I have reviewed the patient's past medical history: Yes Medical History: Reports:: Anxiety, Depression, Hyperten
[2020-07-29 18:43] VITALS: BP 169/113; PULSE 87; RESP 16; TEMP 36.6
== END 2020-07-29 18:43 | disposition home or self-care (01) ==
PROVIDERS: Emergency Provider Nurse Practitioner Family; PCP Emergency Medicine
DX: I16.0 Hypertensive urgency (principal); F41.8 Other specified anxiety disorders; Z79.899 Other long term (current) drug therapy
CPT/HCPCS: 99202; G0463

== ENCOUNTER → 2020-08-03 14:04 | Outpatient (CLI) | payer OTHER, SELFPAY ==
[2020-08-03 15:48] LABS: Basophils # 0.1 K/mm3 (0-0.2); Basophils % 0.7 % (0.1-2.0); Eosinophils # 0.2 K/mm3 (0.0-0.4); Eosinophils % 2.7 % (0.1-12.0); Hematocrit 43.7 % (37.0-47.0); Hemoglobin 14.9 g/dL (12.2-16.2); Lymphocytes # 2.2 K/mm3 (0.7-4.5); Lymphocytes % 30.2 % (10-50); Mean Corpuscular HGB Conc 34.2 g/dL (31.8-35.4); Mean Corpuscular Hemoglobin 29.4 pg (27.0-31.2); Mean Corpuscular Volume 85.9 fl (81-99); Mean Platelet Volume 9.4 fl (7.4-10.4); Monocytes # 0.3 K/mm3 (0.1-1.0); Monocytes % 3.8 % (1.7-9.3); Neutrophils # 4.5 K/mm3 (1.8-7.8); Neutrophils % 62.6 % (37.0-80.0); Platelet Count 248 K/mm3 (142-424); Red Blood Count 5.09 M/mm3 (4.20-5.40); Red Cell Distribution Width 13.4 % (11.5-17.5); White Blood Count 7.2 K/mm3 (4.8-10.8)
[2020-08-03 16:10] LABS: Alanine Aminotransferase 20 U/L (12-78); Albumin Level 4.8 g/dl (3.5-5.0); Albumin/Globulin Ratio 1.7 (1.1-1.8); Alkaline Phosphatase 53 U/L (38-126); Anion Gap 12.3 mEq/L (5-15); Aspartate Amino Transferase 25 U/L (14-36); Bilirubin,Total 0.7 mg/dl (0.2-1.3); Blood Urea Nitrogen 23 mg/dl (7-17); Calcium 9.7 mg/dl (8.4-10.2); Carbon Dioxide 23 mmol/L (22.0-30.0); Chloride 109 mmol/L (98-107); Chol/HDL Ratio 6.2 (1-3.5); Cholesterol 236 mg/dl (140-200); Estimated Glomerular Filt Rate 100 ml/min (>60); GFR (African American) 121 ML/MIN (>60); Globulin 2.8 g/dL (1.3-3.2); Glucose 108 mg/dl (74-100); HDL Cholesterol 38 mg/dl (40-60); Potassium 4.3 mmoL/L (3.5-5.1); Sodium 140 mmol/L (136-145); Total Protein,Serum 7.6 g/dl (6.3-8.2); Triglycerides 299 mg/dl (30-150); VLDL Cholesterol 60 mg/dL (0-40)
[2020-08-03 16:21] LABS: Direct LDL Cholesterol 139.21 mg/dL (100-129)
[2020-08-03 16:24] LABS: 25-OH Vitamin D, Total 22.8 ng/mL (30-100)
[2020-08-03 16:25] LABS: T4 (Thyroxine) 9.4 ug/dl (5.53-11.0)
[2020-08-03 16:38] LABS: Thyroid Stimulating Hormone 1.22 uIU/mL (0.465-4.68)
[2020-08-03 16:58] LABS: Vitamin B12 248 pg/mL (239-931)
== END ==
PROVIDERS: Visit Provider Nurse Practitioner Family
DX: I10 Essential (primary) hypertension (principal); E55.9 Vitamin D deficiency, unspecified; Z79.899 Other long term (current) drug therapy
CPT/HCPCS: 80053; 80061; 82306; 82607; 84436; 84443; 85025

== ENCOUNTER → 2020-12-20 14:31 | Outpatient (CLI) | payer OTHER, SELFPAY | PROVIDERS: Visit Provider Nurse Practitioner Family | DX: N39.0 Urinary tract infection, site not specified (principal) | CPT/HCPCS: 87086 ==

== ENCOUNTER → 2020-12-26 08:23 | Outpatient (CLI) | payer OTHER, SELFPAY ==
--- NOTE | 2020-12-26 08:23 | US_ITS ---
PROCEDURE: US GALLBLADDER CLINICAL INDICATION: RUQ pain COMPARISON: No exams were available for comparison FINDINGS: Pancreas: Unremarkable/Not well seen Liver: Fatty liver. There is appropriate direction of blood flow within a non dilated portal vein. Right kidney: Unremarkable appearing. No hydronephrosis. Gallbladder: Multiple gallstones. No gallbladder wall thickening, pericholecystic fluid, or biliary dilatation. Common bile duct is 3 mm. IMPRESSION: Cholelithiasis with fatty liver Dictated by: Fran Ocasio MD 12/26/2020 14:01 Fran Ocasio MD in [place] 12/26/2020 14:01
== END ==
PROVIDERS: PCP Emergency Medicine; Visit Provider Nurse Practitioner Family
DX: R10.11 Right upper quadrant pain (principal); L50.9 Urticaria, unspecified
CPT/HCPCS: 76705

== ENCOUNTER → 2021-01-09 09:15 | Outpatient (CLI) | payer OTHER, SELFPAY ==
--- NOTE | 2021-01-09 09:16 | CT_ITS ---
PROCEDURE: CT ABDOMEN PELVIS W CON CLINICAL INDICATION: possible hernia Lower abdominal pain and back pain COMPARISON: CR XR CHEST 2V from 09/02/2019 TECHNIQUE: IV Contrast: 75ML Isovue 370 Oral Contrast 450ml Redicat Axial images obtained with sagittal and coronal reformats. All CT scans at the facility use one or more dose reduction, viz: automated exposure control, ma/kV adjustment per patient size (including targeted exams where dose is matched to indication, i.e. head), or iterative reconstruction technique. FINDINGS: LOWER THORAX: In the right lung base there is a 12 by 6 mm nodule along the right infrahilar region and may represent a mildly prominent lymph node. Distal to this area there is a 7 mm nodule in the right lower lobe. An additional 7 mm nodules present in the subpleural region distally. Along the peripheral aspect of the right lower lobe there is a complex soft tissue density measuring 2.5 cm longitudinal and 12 mm in with with a nodular contour extending to the subpleural region. This could be post inflammatory with chronic volume loss. One cannot exclude the possibility of neoplasm. Dedicated chest CT without and with contrast may provide further evaluation. ABDOMEN & PELVIS: No focal liver lesion is evident. There are numerous gallstones. No obvious gallbladder wall thickening or pericholecystic fluid. Common bile duct does not appear dilated. The spleen has an unremarkable appearance. The adrenal glands and pancreas are unremarkable. No renal or ureteral calculi. There are few small periaortic lymph nodes. No intestinal obstruction or free air. There is a small umbilical hernia containing fat. There are few small nodes in the right lower quadrant. No evidence of appendicitis. There is a small left ovarian cyst at 2.7 cm. No pelvic mass or cul-de-sac fluid. There is mild sclerosis of the right SI joint centrally and the left SI joint posteriorly IMPRESSION: 1. Subpleural right lower lobe nodular lesion along with 2 of the right lower lobe nodules and a mildly prominent right infrahilar lymph node. These findings could be post inflammatory/infectious. One cannot exclude the possibility of a neoplastic process. Consider dedicated CT of the chest without and with contrast for further evaluation. 2. Cholelithiasis 3. Small umbilical hernia containing fat 4. Other nonacute findings as described above. Dictated by: Fran Ocasio MD 01/10/2021 10:40 Fran Ocasio MD in [place] 01/10/2021 10:40
== END ==
PROVIDERS: PCP Emergency Medicine; Visit Provider Surgery
DX: R10.11 Right upper quadrant pain (principal); K80.20 Calculus of gallbladder without cholecystitis without obstruction
CPT/HCPCS: 74177; Q9967

== ENCOUNTER 2021-01-12 20:03 | Emergency (ER) | payer OTHER, SELFPAY ==
[2021-01-12 20:04] VITALS: BP 146/101; PULSE 88; RESP 18; TEMP 36.8; O2SAT 100; BMI 31.8
--- NOTE | 2021-01-12 20:12 | ECG_ITS ---
APPROVED REPORT Exam: Resting ECG HR:86 bpm ECG Measurements Heart Rate 86 AXES WY 136 P 30 QRSd 76 QRS 47 QT 356 T 25 QTc 426 Conclusion Normal sinus rhythm Normal ECG Electronically signed by : Joce Malone MD 01/14/2021 08:58:16
[2021-01-12 20:41] LABS: Basophils # 0.1 K/mm3 (0-0.2); Basophils % 1.4 % (0.1-2.0); Eosinophils # 0.1 K/mm3 (0.0-0.4); Eosinophils % 0.7 % (0.1-12.0); Hematocrit 44.8 % (37.0-47.0); Hemoglobin 15.4 g/dL (12.2-16.2); Lymphocytes # 2.9 K/mm3 (0.7-4.5); Lymphocytes % 39.4 % (10-50); Mean Corpuscular HGB Conc 34.4 g/dL (31.8-35.4); Mean Corpuscular Hemoglobin 30.6 pg (27.0-31.2); Mean Corpuscular Volume 88.8 fl (81-99); Mean Platelet Volume 8.3 fl (7.4-10.4); Monocytes # 0.3 K/mm3 (0.1-1.0); Neutrophils % 54.6 % (37.0-80.0); Platelet Count 234 K/mm3 (142-424); Red Blood Count 5.04 M/mm3 (4.20-5.40); Red Cell Distribution Width 13.7 % (11.5-17.5); White Blood Count 7.3 K/mm3 (4.8-10.8)
[2021-01-12 20:53] LABS: Chloride 103 mmol/L (98-107); Potassium 3.8 mmoL/L (3.5-5.1); Sodium 139 mmol/L (136-145)
[2021-01-12 20:56] LABS: Alanine Aminotransferase 20 U/L (12-78); Albumin Level 4.7 g/dl (3.5-5.0); Albumin/Globulin Ratio 1.4 (1.1-1.8); Alkaline Phosphatase 54 U/L (38-126); Anion Gap 15.8 mEq/L (5-15); Aspartate Amino Transferase 26 U/L (14-36); Blood Urea Nitrogen 17 mg/dl (7-17); Calcium 9.5 mg/dl (8.4-10.2); Carbon Dioxide 24 mmol/L (22.0-30.0); Creatinine Clearance Estimated 180 mL/min (50-200); Estimated Glomerular Filt Rate 119 ml/min (>60); GFR (African American) 144 ML/MIN (>60); Globulin 3.3 g/dL (1.3-3.2); Glucose 106 mg/dl (74-100); Lipase 62 U/L (23-300)
[2021-01-12 21:22] LABS: Troponin I < 0.01 ng/ml (0.00-0.034)
[2021-01-12 21:25] LABS: Urine Pregnancy, HCG Qual. Negative (Negative)
[2021-01-12 22:17] VITALS: BP 140/98; PULSE 90; RESP 20; TEMP 36.7; O2SAT 98
--- NOTE | 2021-01-12 22:24 | HMH.EDGENADL ---
ED Disposition Clinical Impression: Chest pain Disposition: Home, Self-Care Condition on Discharge: Good Instructions: DI for Atypical Chest Pain Referrals: Eddi Flynn MD [Primary Care Provider] - 3 days Time of Disposition: 22:28 - Critical Care Critical Care Time: No Attestation: On 01/12/21, the high probability of a clinically significant, sudden or life threatening deterioration of the following system(s) required my full and direct attention, intervention and personal management. The time I documented below is in addition to time spent performing reported procedures but includes the following listed in this critical care notation. Medical Decision Making - Medical Records Medical records reviewed: Yes: I reviewed the patient's medical records. - Jack Inquiry Pt receiving controlled substance: No Vital Signs: 01/12/21 20:04 01/12/21 22:17 Temperature 98.3 F 98.0 F Temperature Source Oral Oral Pulse Rate 90 Pulse Rate [Left] 88 Respiratory Rate 18 20 Blood Pressure 140/98 H Blood Pressure [Left Arm] 146/101 H Blood Pressure Mean [Left Arm] 116 02 Sat by Pulse Oximetry 100 Oxygen Delivery Method Room Air Room Air - Lab Data Lab results reviewed: Yes: I reviewed the patient's lab results. Lab Results 01/12/21 20:20: WBC 7.3, RBC 5.04, Hgb 15.4, Hct 44.8, MCV 88.8, MCH 30.6, MCHC 34.4, RDW 13.7, Plt Count 234, MPV 8.3, Neut % (Auto) 54.6, Lymph % (Auto) 39.4, Ware % (Auto) 4.0, Eos % (Auto) 0.7, Baso % (Auto) 1.4, Neut # (Auto) 4.0, Lymph # (Auto) 2.9, Ware # (Auto) 0.3, Eos # (Auto) 0.1, Baso # (Auto) 0.1 01/12/21 20:20: Sodium 139, Potassium 3.8, Chloride 103, Carbon Dioxide 24, Anion Gap 15.8 H, BUN 17, Creatinine 0.60, Estimated Creat Clear 180, Estimated GFR 119, Est GFR ( Amer) 144, Glucose 106 H, Calcium 9.5, Total Bilirubin 1.0, AST 26, ALT 20, Alkaline Phosphatase 54, Troponin I < 0.01, Total Protein 8.0, Albumin 4.7, Globulin 3.3 H, Albumin/Globulin Ratio 1.4, Lipase 62 01/12/21 20:55: Urine HCG, Qual Negative Result diagrams: 01/12/21 20:20 01/12/21 20:20 Orders (Tests/Meds): ORDERS Category Date Time Status Troponin I Q3H Lab 01/12/21 23:30 Ordered - ECG Data Tracing #1 I reviewed this ECG and interpreted as documented below: Normal sinus rhythm, 86 bpm, no ST ovation depression, normal intervals, no ectopy. ECG initial impression date: 01/12/21 ECG initial impression time: 20:30 Medical Decision Narrative: 30yo F evaluated for right chest pain and right upper extremity numbness and paresthesia. Patient no acute distress on this evaluation. She has full use of her right upper extremity. No strength deficit right compared to left. EKG is unremarkable. Laboratory studies are benign. Patient is appropriate and stable for discharge home. She can follow-up with her PCP in the next few days. General Adult HPI - General Chief complaint: Chest Pain Stated complaint: chest pains R side Time Seen by Provider: 01/12/21 21:00 Mode of Arrival: Family Vehicle Limitations: No Limitations Description of Symptoms (Recalled from ER Triage Doc. by RN): Pt c/o R side chest pain and right arm numbness with pain that has been intermittent for ~ 1 yr. Pt states she has talked to her PCP (Dr. Flynn) and was told it might be carpal tunnel. Pt has had a negative stress test and echo. 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 Pt reports I just want my heart enzymes checked. I am young and have high blood pressure and want to be around for my kids . She denies any n/v radiating back or neck pain. She denies any SOB. - History of Present Illness HPI narrative: 30yo F presents the emergency department secondary to right-sided chest pain with right sided upper extremity numbness and tingling. Patient reports she has had these symptoms previously. Reports they occur on the left side as well, never on both sides at the same time. Patient is concerned that this may be h
== END 2021-01-12 22:33 | disposition home or self-care (01) ==
PROVIDERS: Emergency Provider Family Medicine; PCP Emergency Medicine
DX: R07.9 Chest pain, unspecified (principal); I10 Essential (primary) hypertension; F41.8 Other specified anxiety disorders; Z79.899 Other long term (current) drug therapy
CPT/HCPCS: 80053; 81025; 83690; 84484; 85025; 93005; 99283

== ENCOUNTER 2021-01-20 21:29 | Emergency (ER) | payer OTHER, SELFPAY ==
[2021-01-20 21:31] VITALS: BP 148/101; PULSE 81; RESP 16; TEMP 36.9; O2SAT 99; BMI 30.9
--- NOTE | 2021-01-20 21:57 | XR_ITS ---
PROCEDURE INFORMATION: Exam: XR Chest Exam date and time: 01/20/2021 9:57 PM Age: 30 years old Clinical indication: Pain; Right-sided; Additional info: Chest pain RT side RT shoulder TECHNIQUE: Imaging protocol: XR of the chest. Views: 2 views. COMPARISON: CR XR CHEST 2V 09/02/2019 11:11 AM FINDINGS: Lungs: Limited inspiration. There is an 18 mm density identified within the right mid lung field, situated between the anterior aspects of the right 3rd and 4th ribs. This was present on prior examination of 09/02/2019. Primary diagnostic consideration would be a granuloma in this location. No evidence of alveolar consolidation. There is no evidence of pulmonary vascular congestion. Pleural spaces: Unremarkable. No pleural effusion. No pneumothorax. Heart/Mediastinum: Unremarkable. No cardiomegaly. Bones/joints: Unremarkable. IMPRESSION: There is a density noted within the mid right lung field which is stable since prior examination, likely representing a granuloma. Limited inspiration. No evidence of acute infiltrate or congestive failure.
--- NOTE | 2021-01-20 21:57 | XR_ITS ---
PROCEDURE INFORMATION: Exam: XR Right Shoulder Exam date and time: 01/20/2021 9:57 PM Age: 30 years old Clinical indication: Pain; Shoulder; Right; Additional info: Shoulder pain right TECHNIQUE: Imaging protocol: XR Right shoulder. Views: 2 or more views. COMPARISON: CR XR CHEST 2V 01/20/2021 10:01 PM FINDINGS: Bones/joints: Normal. Soft tissues: Normal. IMPRESSION: No acute findings.
--- NOTE | 2021-01-20 21:58 | HMH.EDGENADL ---
ED Disposition Clinical Impression: Cervical strain Qualifiers: Encounter type: initial encounter Qualified Code(s): S16.1XXA - Strain of muscle, fascia and tendon at neck level, initial encounter Musculoskeletal arm pain Qualifiers: Laterality: right Qualified Code(s): M79.601 - Pain in right arm Disposition: Home, Self-Care Condition on Discharge: Good Instructions: DI for Cervical Muscle Strain, DI for Joint Pain Additional Instructions: You have been evaluated for neck pain, shoulder pain. Please continue taking anti-inflammatories as prescribed. Follow-up with your primary care doctor. Return to the emergency department for any new or worsening symptoms. Referrals: Eddi Flynn MD [Primary Care Provider] - Time of Disposition: 00:51 - Critical Care Critical Care Time: No Attestation: On 01/20/21, the high probability of a clinically significant, sudden or life threatening deterioration of the following system(s) required my full and direct attention, intervention and personal management. The time I documented below is in addition to time spent performing reported procedures but includes the following listed in this critical care notation. Medical Decision Making - Medical Records Medical records reviewed: Yes: I reviewed the patient's medical records. - Jack Inquiry Pt receiving controlled substance: No Vital Signs: 01/20/21 21:31 Temperature 98.4 F Temperature Source Oral Pulse Rate [Left] 81 Respiratory Rate 16 Blood Pressure [Right Arm] 148/101 H Blood Pressure Mean [Right Arm] 116 02 Sat by Pulse Oximetry 99 Oxygen Delivery Method Room Air - Lab Data Lab Results 01/20/21 23:38: WBC 5.7, RBC 4.05 L, Hgb 8.8 L, Hct 32.1 L, MCV 79.3 L, MCH 21.8 L, MCHC 27.5 L, RDW 17.8 H, Plt Count 396, MPV 6.4 L, Neut % (Auto) 72.3, Lymph % (Auto) 16.4, Craig % (Auto) 8.0, Eos % (Auto) 2.4, Baso % (Auto) 0.9, Neut # (Auto) 4.1, Lymph # (Auto) 0.9, Craig # (Auto) 0.5, Eos # (Auto) 0.1, Baso # (Auto) 0.1 01/20/21 23:38: Sodium 139, Potassium 3.9, Chloride 104, Carbon Dioxide 27, Anion Gap 11.9, BUN 23 H, Creatinine 0.60, Estimated Creat Clear 180, Estimated GFR 119, Est GFR ( Amer) 144, Glucose 96, Calcium 9.5, Total Bilirubin 0.5, AST 30, ALT 20, Alkaline Phosphatase 55, Total Protein 7.3, Albumin 4.1, Globulin 3.2, Albumin/Globulin Ratio 1.3, Lipase 71 Result diagrams: 01/20/21 23:38 01/20/21 23:38 Orders (Tests/Meds): ED MEDICATIONS Discontinued Medications Generic Name Dose Route Start Last Admin Trade Name Geoq PRN Reason Stop Dose Admin Ketorolac Tromethamine 30 mg 01/20/21 23:24 01/20/21 23:32 Ketorolac 30mg/Ml Vial IM 01/20/21 23:25 30 mg ONCE ONE Administration Methylprednisolone Sodium Succinate 40 mg 01/20/21 23:24 01/20/21 23:31 Methylprednisolone Sod Succ 40mg Vial IM 01/20/21 23:25 40 mg ONCE ONE Administration Medical Decision Narrative: In summary this is a 30-year-old female presenting to the emergency department with right-sided neck, shoulder pain. Patient clinically stable on arrival. Vital signs within normal limits. She lifts her children, but no other clear signs of trauma. Concern for cervical DJD, peripheral neuropathy, atypical ACS, referred biliary pain. Will obtain CBC, CMP, chest x-ray, EKG, troponin profile. Patient given 15 mg IM Toradol and 40 mg Solu-Medrol Initial laboratory results are reassuring. No leukocytosis. There has been a drop in her hemoglobin from 14-8. She was on her menstrual cycle in the last week. Likely blood loss anemia. No elevation in AST, ALT, alk phos to suggest biliary tract obstruction due to gallstones. For medication, patient feeling somewhat better. Most likely diagnosis is musculoskeletal pain. No fever or meningismus to suggest infection. No recent trauma. No C-spine joint narrowing on x-ray. No joint effusion or AC separation on shoulder x-ray. recommended close PCP follow-up. Give
--- NOTE | 2021-01-20 23:32 | ECG_ITS ---
APPROVED REPORT Exam: Resting ECG HR:71 bpm ECG Measurements Heart Rate 71 AXES NH 140 P 9 QRSd 78 QRS 34 QT 382 T 0 QTc 415 Conclusion Normal sinus rhythm Normal ECG Electronically signed by : Joce Malone MD 01/21/2021 09:10:50
[2021-01-21 00:30] LABS: Alanine Aminotransferase 20 U/L (12-78); Albumin Level 4.1 g/dl (3.5-5.0); Albumin/Globulin Ratio 1.3 (1.1-1.8); Alkaline Phosphatase 55 U/L (38-126); Anion Gap 11.9 mEq/L (5-15); Aspartate Amino Transferase 30 U/L (14-36); Bilirubin,Total 0.5 mg/dl (0.2-1.3); Blood Urea Nitrogen 23 mg/dl (7-17); Calcium 9.5 mg/dl (8.4-10.2); Carbon Dioxide 27 mmol/L (22.0-30.0); Chloride 104 mmol/L (98-107); Creatinine Clearance Estimated 180 mL/min (50-200); Estimated Glomerular Filt Rate 119 ml/min (>60); GFR (African American) 144 ML/MIN (>60); Globulin 3.2 g/dL (1.3-3.2); Glucose 96 mg/dl (74-100); Lipase 71 U/L (23-300); Potassium 3.9 mmoL/L (3.5-5.1); Sodium 139 mmol/L (136-145); Total Protein,Serum 7.3 g/dl (6.3-8.2)
[2021-01-21 00:43] LABS: Hematocrit 32.1 % (37.0-47.0); Hemoglobin 8.8 g/dL (12.2-16.2); Mean Corpuscular Volume 79.3 fl (81-99); Red Blood Count 4.05 M/mm3 (4.20-5.40); White Blood Count 5.7 K/mm3 (4.8-10.8)
[2021-01-21 00:44] LABS: Basophils # 0.1 K/mm3 (0-0.2); Basophils % 0.9 % (0.1-2.0); Eosinophils # 0.1 K/mm3 (0.0-0.4); Eosinophils % 2.4 % (0.1-12.0); Lymphocytes # 0.9 K/mm3 (0.7-4.5); Lymphocytes % 16.4 % (10-50); Mean Corpuscular HGB Conc 27.5 g/dL (31.8-35.4); Mean Corpuscular Hemoglobin 21.8 pg (27.0-31.2); Mean Platelet Volume 6.4 fl (7.4-10.4); Monocytes # 0.5 K/mm3 (0.1-1.0); Neutrophils # 4.1 K/mm3 (1.8-7.8); Neutrophils % 72.3 % (37.0-80.0); Platelet Count 396 K/mm3 (142-424); Red Cell Distribution Width 17.8 % (11.5-17.5)
[2021-01-21 01:05] VITALS: BP 148/101; PULSE 88; RESP 14; TEMP 37.1; O2SAT 99
== END 2021-01-21 01:10 | disposition home or self-care (01) ==
PROVIDERS: Emergency Provider Emergency Medicine; PCP Emergency Medicine
DX: S16.1XXA Strain of muscle, fascia and tendon at neck level, initial encounter (principal); M79.601 Pain in right arm; F41.8 Other specified anxiety disorders; I10 Essential (primary) hypertension
CPT/HCPCS: 71046; 73030; 80053; 83690; 85025; 93005; 99282

== ENCOUNTER → 2021-01-24 18:17 | Outpatient (CLI) | payer OTHER, SELFPAY | PROVIDERS: Visit Provider Physician Assistant | DX: R10.9 Unspecified abdominal pain (principal) | CPT/HCPCS: 87086 ==

== ENCOUNTER → 2021-01-27 16:59 | Outpatient (CLI) | payer OTHER, SELFPAY ==
--- NOTE | 2021-01-27 17:00 | MR_ITS ---
PROCEDURE INFORMATION: Exam: MR Cervical Spine Without Contrast Exam date and time: 01/27/2021 5:00 PM Age: 30 years old Clinical indication: Patient HX: Neck pain w/rue pain TECHNIQUE: Imaging protocol: Multiplanar magnetic resonance images of the cervical spine without contrast. COMPARISON: MR HEAD/BRAIN WO CON 09/04/2019 12:04 PM FINDINGS: Mildly prominent adenoids No marrow edema Alignment grossly normal. Signal intensity within the bone marrow normal. Spinal cord normal. Visualized portions of the brain in the posterior fossa is also normal. C2-C3: Central canal and neural foramina are widely patent. C3-C4: Central canal and neural foramina are widely patent. C4-C5: Central canal and neural foramina are widely patent. C5-C6: Central canal and neural foramina are widely patent. C6-C7: Central canal and neural foramina are widely patent. C7-T1: Central canal and neural foramina are widely patent. IMPRESSION: Unremarkable MRI cervical spine.
== END ==
PROVIDERS: PCP Emergency Medicine; Visit Provider Family Medicine
DX: M54.2 Cervicalgia (principal)
CPT/HCPCS: 72141; 76376

== ENCOUNTER → 2021-02-01 14:01 | Outpatient (CLI) | payer OTHER, SELFPAY ==
--- NOTE | 2021-02-01 14:01 | CT_ITS ---
PROCEDURE: CT CHEST WO/W CON CLINCAL INDICATION: lung lesion Lung lesion, neck pain, right-sided chest pain COMPARISON: CR CXR2V XR chest 2V from 11/28/[address] ABDOMEN PELVIS W CON from 01/09/2021 TECHNIQUE: IV Contrast: 75ml Isovue 370 Axial images obtained with sagittal and coronal reformats. All CT scans at the facility use one or more dose reduction, viz: automated exposure control, ma/kV adjustment per patient size (including targeted exams where dose is matched to indication, i.e. head), or iterative reconstruction technique. FINDINGS: HEART AND MEDIASTINAL STRUCTURES: No mediastinal or hilar mass or adenopathy. There are few partially calcified nodes in the subcarinal region. No evidence of aortic aneurysm or central pulmonary embolus. LUNGS AND PLEURAL SPACES: There are 2 nodules in the left lower lobe at 3 mm each not significantly changed. In the right lower lobe there is a partially calcified bilobular nodule in the superior segment of the right lower lobe measuring 19 by 6 mm. In the right lower lobe posteriorly there are several small nodules which are clustered together. The largest nodule is peripheral the and macrolobular measuring 2.4 by 1.2 cm. Small satellite nodules are adjacent to this lesion. Coarse calcification is present in the central aspect of this nodule. There are additional small nodules in the infrahilar region on the right with mildly prominent partially calcified lymph node in the infrahilar region at this area. These findings are not significantly changed. This may all represent sequela from old granulomatous disease. If the patient has old CTs available for comparison of either the upper abdomen or lower chest then would suggest make in those available. BONY STRUCTURES: No acute bony abnormalities apparent. UPPER ABDOMEN: Cholelithiasis ADDITIONAL FINDINGS: No other significant abnormalities. IMPRESSION: 1. Right lower lobe pulmonary nodules are not significantly changed from 01/09/2021. Partially calcified nodules are present also in the superior segment of the right lower lobe. There are 2 small nodules in the left lower lobe at 3 mm each unchanged. The nodules in the right lower lobe may represent sequela from old granulomatous disease. One cannot exclude the possibility of neoplastic process. If there are older studies on this patient then would suggest making them available for comparison and then an addendum could be added. If no old studies are available then, PET CT may provide further evaluation to determine the activity of these lesions. Alternatively, 1 could perform a nonenhanced chest CT in 3-6 months also to confirm short term stability. 2. Cholelithiasis Dictated by: Fran Ocasio MD 02/02/2021 08:45 Fran Ocasio MD in [place] 02/02/2021 08:45
== END ==
PROVIDERS: PCP Emergency Medicine; Visit Provider Family Medicine
DX: R91.1 Solitary pulmonary nodule (principal)
CPT/HCPCS: 71270; Q9967

== ENCOUNTER → 2021-02-08 15:08 | Outpatient (CLI) | payer OTHER, SELFPAY ==
--- NOTE | 2021-02-08 15:08 | US_ITS ---
PROCEDURE: US TRANSVAGINAL CLINICAL INDICATION: abnormal vaginal bleeding COMPARISON: US US OB TRANSVAGINAL from 01/26/2019 FINDINGS: UTERUS: 9cm x 6cmx 5cm with a combined endometrial thickness of 8.2mm. scar noted along the lower uterine segment anteriorly. LEFT OVARY: [id number] with a volume of 19.8ml. There is a 1.6 cm simple cyst of the left ovary RIGHT OVARY: [id number] with a volume of 9.7ml. No cul-de-sac fluid IMPRESSION: Unremarkable pelvic ultrasound Dictated by: Fran Ocasio MD 02/08/2021 17:25 Fran Ocasio MD in [place] 02/08/2021 17:25
== END ==
PROVIDERS: PCP Emergency Medicine; Visit Provider Obstetrics & Gynecology
DX: N93.9 Abnormal uterine and vaginal bleeding, unspecified (principal)
CPT/HCPCS: 76830

== ENCOUNTER → 2021-07-27 13:15 | Outpatient (CLI) | payer OTHER, SELFPAY ==
--- NOTE | 2021-07-27 13:16 | CT_ITS ---
FINAL REPORT CLINICAL HISTORY: abnormal chest CT, FU COMPARISON: February 01, 2021 FINDINGS: Axial images were obtained from the lung apex to the mid abdomen by computed tomography. Coronal reformatted images were obtained. This study was performed with techniques to keep radiation doses as low as reasonably achievable, (ALARA). Individualized dose reduction techniques using automated exposure control or adjustment of mA and/or kV according to the patient's size were employed. There is stable abnormal soft tissue in the anterior mediastinum probably due to residual thymic tissue. There is no axillary adenopathy. There are densely calcified subcarinal and right hilar lymph nodes. Heart size is normal. There is no pericardial or pleural effusion. Limited images of the upper abdomen demonstrate multiple gallstones in a contracted gallbladder. There are multiple nodules throughout the right lower lobe some of which have internal calcifications. The largest partially calcified nodule measures up to 1.8 x 1.1 cm. These nodules are stable as compared to prior exam. No new nodules are identified. IMPRESSION: Multiple nodules throughout the right lower lobe as described, stable from prior. Findings are favored to be post-inflammatory. Cholelithiasis. Reviewed, Interpreted and Dictated by Jimmy Lindo MD Transcribed by Franklin Petit Authenticated by Jimmy Lindo MD on 07/27/2021 04:37:45 PM [facility]
== END ==
PROVIDERS: PCP Physician Assistant; Visit Provider Physician Assistant
DX: R93.89 Abnormal findings on diagnostic imaging of other specified body structures (principal)
CPT/HCPCS: 71250

== ENCOUNTER 2022-01-11 16:58 | Outpatient (RCR) | payer OTHER, SELFPAY | END 2022-01-11 16:59 | disposition home or self-care (01) | LOC: PT 16:58 | PROVIDERS: PCP Physician Assistant; Visit Provider Nurse Practitioner Family | DX: M54.30 Sciatica, unspecified side (principal) | CPT/HCPCS: 97163 ==

== ENCOUNTER 2022-03-12 03:44 | Emergency (ER) | payer OTHER, SELFPAY ==
[2022-03-12 03:45] VITALS: BP 141/90; PULSE 81; RESP 18; TEMP 36.5; O2SAT 96; BMI 32.8
--- NOTE | 2022-03-12 04:15 | XR_ITS ---
PROCEDURE INFORMATION: Exam: XR Chest Exam date and time: 03/12/2022 4:41 AM Age: 31 years old Clinical indication: Cough; Additional info: Abd pain TECHNIQUE: Imaging protocol: Radiologic exam of the chest. Views: 2 views. COMPARISON: No relevant prior studies available. FINDINGS: Lungs: Decreased lung volumes with calcific RIGHT lung granulomas. Pleural spaces: No pleural effusion or pneumothorax. Heart/Mediastinum: Cardiomediastinal silhouette is normal. Bones/joints: NA IMPRESSION: No active lung parenchymal lesion.
--- NOTE | 2022-03-12 04:15 | CT_ITS ---
PROCEDURE INFORMATION: Exam: CT Abdomen And Pelvis With Contrast Exam date and time: 03/12/2022 4:55 AM Age: 31 years old Clinical indication: Abdominal pain; Generalized; Prior surgery; Surgery date: 6+ months; Surgery type: Tubal; Additional info: Abd pain TECHNIQUE: Imaging protocol: Computed tomography of the abdomen and pelvis with contrast. Radiation optimization: All CT scans at this facility use at least one of these dose optimization techniques: automated exposure control; mA and/or kV adjustment per patient size (includes targeted exams where dose is matched to clinical indication); or iterative reconstruction. Contrast material: ISOVUE; Contrast volume: 75 ml; Contrast route: IV; COMPARISON: CT ABDOMEN PELVIS W CON 01/09/2021 9:30 AM FINDINGS: Pancreaticohepatobiliary: Liver: Markedly enlarged liver shows probable diffuse fatty infiltration. No significant intra-or extrahepatic ductal dilation. Gallbladder: Hydropic distention of the gallbladder which demonstrates multiple gallstones without evidence of surrounding inflammation. Pancreas: Normal in size normal in size and attenuation without peripancreatic fluid or obvious mass. Spleen: Normal in size and attenuation. . Genitourinary: Adrenal gland: No adrenal mass. Kidneys: Both kidneys are unremarkable without hydronephrosis. Urinary bladder: Partially distended urinary bladder. Uterus/ovaries: Uterus is normal. Bilobed cystic LEFT ovarian/adnexal mass measuring approximately 4.1 x 4.4 x 5.6 cm. No free fluid in the pelvis. . Gastrointestinal: Bowel: Colon contains a moderate amount of fecal matter. A few colonic diverticula. No free intraperitoneal air or fluid collection. Appendix: A normal APPENDIX is visualized. . Other findings: Aorta: Aorta appears unremarkable without evidence of aortic aneurysm. Lymph nodes: Normal size and mildly enlarged mesenteric/retroperitoneal lymph nodes. Soft tissues: Small periumbilical hernia containing fat. Lung bases: Lobulated/nodular RIGHT lower lobe subpleural airspace opacities with punctate calcifications and calcific mediastinal/hilar lymph nodes. IMPRESSION: 1. Hydropic distention of the gallbladder with cholelithiasis as described. Recommend correlation with pertinent clinical history and follow-up as indicated. 2. Bilobed/complex cystic LEFT ovarian/adnexal mass as described. Differential diagnosis includes functional/physiologic ovarian cyst, hemorrhagic ovarian cyst, ovarian torsion, tubo-ovarian abscess/PID and cystic ovarian neoplasm. Recommend sonography followup. 3. Lobulated nodular RIGHT lower lobe subpleural airspace opacities with calcifications unchanged compared to prior. 4. Numerous other nonemergent/incidental findings as described.
[2022-03-12 04:28] LABS: Microscopic, Urine URINE MICROSCOPIC (MICROSCOPIC)
[2022-03-12 04:35] LABS: Basophils # 0.1 K/mm3 (0-0.2); Basophils % 0.9 % (0.1-2.0); Eosinophils # 0.2 K/mm3 (0.0-0.4); Eosinophils % 2.3 % (0.1-12.0); Hematocrit 42.8 % (37.0-47.0); Hemoglobin 14.1 g/dL (12.2-16.2); Lymphocytes # 2.7 K/mm3 (0.7-4.5); Lymphocytes % 27.3 % (10-50); Mean Corpuscular Hemoglobin 29.8 pg (27.0-31.2); Mean Corpuscular Volume 90.3 fl (81-99); Mean Platelet Volume 8.7 fl (7.4-10.4); Monocytes # 0.4 K/mm3 (0.1-1.0); Monocytes % 4.1 % (1.7-9.3); Neutrophils # 6.4 K/mm3 (1.8-7.8); Neutrophils % 65.4 % (37.0-80.0); Platelet Count 211 K/mm3 (142-424); Red Blood Count 4.74 M/mm3 (4.20-5.40); Red Cell Distribution Width 13.8 % (11.5-17.5); White Blood Count 9.8 K/mm3 (4.8-10.8)
[2022-03-12 04:36] LABS: Appearance,Urine SL CLOUDY (Clear); Bilirubin,Urine Negative (Negative); Blood, Urine Negative (Negative); Color,Urine YELLOW (Yellow); Glucose,Urine (UA) Negative (Negative); Ketones,Urine Negative (Negative); Leukocyte Esterase,Urine Negative (Negative); Nitrate,Urine Negative (Negative); PH,Urine 6.5 (5.0-8.5); Protein,Urine Negative (Negative); Specific Gravity, Urine 1.025 (1.005-1.030); Urobilinogen,Urine 0.2 EU/dl (0.2)
[2022-03-12 04:38] LABS: Amorphous Sediment,Urine 2+ /lpf; Mucus,Urine 1+ /lpf; Squamous Epithelial Cell,Urine 20-50 #/hpf (0-5)
--- NOTE | 2022-03-12 04:49 | PC.NURSE ---
Pt gone to RAD via wheelchair
[2022-03-12 04:51] LABS: Alanine Aminotransferase 31 U/L (12-78); Albumin Level 4.2 g/dl (3.5-5.0); Albumin/Globulin Ratio 1.4 (1.1-1.8); Alkaline Phosphatase 52 U/L (38-126); Amylase 52 U/L (30-110); Anion Gap 10.8 mEq/L (5-15); Aspartate Amino Transferase 30 U/L (14-36); Bilirubin,Total 0.4 mg/dl (0.2-1.3); Blood Urea Nitrogen 26 mg/dl (7-17); Calcium 9.6 mg/dl (8.4-10.2); Carbon Dioxide 27 mmol/L (22.0-30.0); Chloride 108 mmol/L (98-107); Creatinine Clearance Estimated 142 mL/min (50-200); Estimated Glomerular Filt Rate 85 ml/min (>60); GFR (African American) 103 ML/MIN (>60); Glucose 130 mg/dl (74-100); Lipase 72 U/L (23-300); Potassium 3.8 mmoL/L (3.5-5.1); Sodium 142 mmol/L (136-145); Total Protein,Serum 7.2 g/dl (6.3-8.2)
--- NOTE | 2022-03-12 04:56 | PC.NURSE ---
Pt back from RAD
--- NOTE | 2022-03-12 05:47 | HMH.EDABDPAI ---
Discharge Plan Disposition Patient Disposition: Home, Self-Care Chief Complaint: Abdominal Pain Prescriptions Prescriptions: No Action No Known Home Medications Referrals Follow up/Referrals: Sarah David PA [Primary Care Provider] - See instructions Wayne Alejo MD [Staff Physician] - See instructions Keshav Clark MD [Staff Physician] - See instructions Clinical Impressions Clinical Impression: Cholelithiasis, Ovarian cyst Instructions Patient Instructions: DI for Gallstones, DI for Ovarian Cyst Discharge ED Provider: Eddi Flynn Abdominal Pain HPI General Chief Complaint: Abdominal Pain Stated Complaint: Right side abdominal pain Time Seen by Provider: 03/12/22 04:00 Mode of Arrival: Ambulatory Source of Information: Patient and Medical Record Limitations: No Limitations Description of Symptoms (Recalled from ER Triage Doc. by RN): pt c/o possible gallbladder attack. the pt stated that she went to bed at 10pm and woke up with pain 10/10 at midnight and the pain is not going away the pt states the pain is under her right ribcage and radiates to her back and all over making it feel like its hard to get her breath. the pt stated that she was suppose to get her gallbladder out 2 years ago but hasnt been able to. History of Present Illness HPI narrative: acute rt upper abd pain with hx of known gallstones complaint: abdominal pain Onset (ago): hour(s) Consistency: intermittent Location: RUQ Severity: moderate Quality: sharp Associated symptoms: denies other symptoms Related Data Home Medications Medication Instructions Recorded Confirmed No Known Home Medications 03/12/22 03/12/22 Allergies Allergy/AdvReac Type Severity Reaction Status Date / Time No Known Allergies Allergy Verified 01/04/22 11:10 [facility] Disclaimer: The information contained in this section may have been updated after the patient was seen, as this information can be updated by other users. Medical History (Updated 03/12/22 @ 06:11 by Eddi Flynn MD) Amin's palsy Depression Hives Hypertension Obesity Swelling of both hands Tingling in extremities Vitamin D deficiency (~07/01/17) Vitiligo Social History Smoking Status: Former smoker second hand exposure: No alcohol intake: never substance use type: denies use current occupational status: employed Travel in the last 8 weeks: None household members: children housing: apartment caffeine: Yes ROS Obtained: Yes All systems reviewed & no additional complaints except as documented Physical Exam General General appearance: alert Head Head exam: normocephalic Eye Eye exam: Present PERRL and EOMI ENT ENT exam: Present mucous membranes moist Neck Neck exam: Present trachea midline Respiratory Respiratory exam: Absent respiratory distress Cardiovascular Cardiovascular exam: Present regular rate Abdominal Exam Abdominal exam: Present soft, tenderness and Reddy's sign; Absent guarding or rebound Abdominal tenderness: Present RUQ Extremities Exam Extremities exam: Present full ROM Back Exam Back exam: Absent CVA tenderness (R) Neurological Exam Neurological exam: Present alert, oriented X3 and CN II-XII intact Psychiatric Psychiatric exam: Present normal affect Skin Skin exam: Absent rash Medical Decision Making Medical Records Medical records reviewed: Yes I reviewed the patient's medical records. Jack Inquiry Pt receiving controlled substance: No Vital Signs: 03/12/22 03:45 Temperature 97.7 F Temperature Source Oral Pulse Rate [Left] 81 Respiratory Rate 18 Blood Pressure [Right Arm] 141/90 H Blood Pressure Mean [Right Arm] 107 02 Sat by Pulse Oximetry 96 Oxygen Delivery Method Room Air Lab Data Lab results reviewed: Yes I reviewed the patient's lab results. Lab Results 03/12/22 03:50: Urine Color Yellow, Urine Appearance Sl cloudy, Urine pH 6.5, Ur Specific Sterrett 1.025
[2022-03-12 06:27] VITALS: BP 135/88; PULSE 68; RESP 16; TEMP 36.6; O2SAT 98
== END 2022-03-12 06:49 | disposition home or self-care (01) ==
PROVIDERS: Emergency Provider Emergency Medicine; PCP Physician Assistant
DX: K80.20 Calculus of gallbladder without cholecystitis without obstruction (principal); N83.202 Unspecified ovarian cyst, left side; R16.0 Hepatomegaly, not elsewhere classified; R91.1 Solitary pulmonary nodule
CPT/HCPCS: 71046; 74177; 80053; 81001; 82150; 83690; 85025; 96365; 96375; 99285; J2405; Q9967

== ENCOUNTER → 2022-03-22 09:36 | Outpatient (CLI) | payer OTHER, SELFPAY ==
[2022-03-22 10:18] LABS: Basophils # 0.1 K/mm3 (0-0.2); Basophils % 0.5 % (0.1-2.0); Eosinophils # 0.1 K/mm3 (0.0-0.4); Eosinophils % 0.8 % (0.1-12.0); Hematocrit 43.4 % (37.0-47.0); Hemoglobin 14.3 g/dL (12.2-16.2); Lymphocytes # 2.1 K/mm3 (0.7-4.5); Mean Corpuscular HGB Conc 32.9 g/dL (31.8-35.4); Mean Corpuscular Volume 91.2 fl (81-99); Mean Platelet Volume 8.4 fl (7.4-10.4); Monocytes # 0.7 K/mm3 (0.1-1.0); Monocytes % 3.9 % (1.7-9.3); Neutrophils # 14.7 K/mm3 (1.8-7.8); Neutrophils % 82.8 % (37.0-80.0); Platelet Count 264 K/mm3 (142-424); Red Blood Count 4.76 M/mm3 (4.20-5.40); Red Cell Distribution Width 13.5 % (11.5-17.5); White Blood Count 17.8 K/mm3 (4.8-10.8)
[2022-03-22 10:20] LABS: MANUAL DIFFERENTIAL MANUAL DIFFERENTIAL (MANUAL DIFF)
[2022-03-22 10:31] LABS: Alanine Aminotransferase 30 U/L (12-78); Albumin Level 4.5 g/dl (3.5-5.0); Albumin/Globulin Ratio 1.6 (1.1-1.8); Alkaline Phosphatase 77 U/L (38-126); Anion Gap 10.3 mEq/L (5-15); Aspartate Amino Transferase 27 U/L (14-36); Bilirubin,Total 1.1 mg/dl (0.2-1.3); Blood Urea Nitrogen 17 mg/dl (7-17); Calcium 9.5 mg/dl (8.4-10.2); Carbon Dioxide 29 mmol/L (22.0-30.0); Chloride 104 mmol/L (98-107); Estimated Glomerular Filt Rate 85 ml/min (>60); GFR (African American) 103 ML/MIN (>60); Globulin 2.9 g/dL (1.3-3.2); Glucose 107 mg/dl (74-100); Potassium 4.3 mmoL/L (3.5-5.1); Sodium 139 mmol/L (136-145); Total Protein,Serum 7.4 g/dl (6.3-8.2)
[2022-03-22 12:57] LABS: Lymphocytes % 9 % (10-50); Monocytes % 1 % (2-9); Neutrophils % 90 % (42-76); Platelet Estimate Normal; RBC Morphology Normal; Total Cells Counted 100
== END ==
PROVIDERS: PCP Physician Assistant; Visit Provider Surgery
DX: Z01.812 Encounter for preprocedural laboratory examination (principal); K80.20 Calculus of gallbladder without cholecystitis without obstruction
CPT/HCPCS: 36415; 80053; 85007; 85025

== ENCOUNTER 2022-04-02 09:23 | Day surgery (SDC) | payer OTHER, SELFPAY ==
[2022-03-29 08:53] VITALS: BMI 32.5
--- NOTE | 2022-03-30 10:55 | SUR.PREOP ---
03/30/22 1050 WBC of 17.8 from 03/22/[address] Alejo's office. No need to repeat.
[2022-04-02] VITALS (12 sets, daily range): BP systolic 122–144; BP diastolic 76–103; PULSE 68–92; RESP 15–18; TEMP 36.2–43; O2SAT 92–97
[2022-04-02 09:42] LABS: Urine Pregnancy, HCG Qual. Negative (Negative)
--- NOTE | 2022-04-02 09:47 | EXP.ANES.CKL ---
[facility] Disclaimer: The information contained in this section may have been updated after the patient was seen, as this information can be updated by other users. Medical History Amin's palsy Depression Hives Hypertension Obesity Swelling of both hands Tingling in extremities Vitamin D deficiency (~07/01/17) Vitiligo Surgical History History of section Family History (Updated 03/29/22 @ 09:00 by Senia Marlow RN) Other No significant family history Social History Smoking Status: Former smoker second hand exposure: No alcohol intake: never substance use type: denies use current occupational status: employed Travel in the last 8 weeks: None household members: children housing: apartment caffeine: Yes [facility] Anesthesia Checklist Patient Identification Patient Identification: Arm Band and Verbal (Name & ) Structural Data Admitted From: Home Planned Operative Procedure/s: Laparascopic Cholecystectomy Consent for Planned Operative Procedure(s) Verified: Yes Verified Documents: Surgical Consent NPO Status Verified Time NPO: 00:00 Additional verifications Patient : No Anesthesia Reactions: No Airway Assessment C-Spine Mobility Assessed: Yes TMJ Mobility Assessed: Yes Dentition: Good Dentition Neurological Assessment Level of Consciousness: Awake, Alert and Appropriate Anesthesia Plan Anesthesia Type: General
--- NOTE | 2022-04-02 11:24 | EXP.OP.NOTE ---
Date of procedure: 04/02/22 Pre-op Diagnosis:: Symptomatic gallstones Post-op Diagnosis:: Same Procedure performed:: Laparoscopic cholecystectomy Surgeon:: Wayne Alejo MD Manager Of School(s):: None RELIGIOUS EDUCATOR:: Luis Weaver Anesthesia: ELIJAH Estimated blood loss (mL): 25 Clinical Note:: Patient is a 31-year-old female who has a known diagnosis of gallstones since 2019.? I had previously seen her a couple of years ago for gallstones and she was also undergoing evaluation of upper extremity issues.? Her symptoms have been relatively normal until on 03/12/2022.? At that time she had right upper quadrant pain radiating around to her back.? Evaluation in the emergency department was performed.? She had a CT scan performed which revealed hydropic distention of the gallbladder with cholelithiasis as described.? Bilobed/complex cystic left ovarian/adnexal mass as described.? Differential diagnosis includes functional/physiologic ovarian cyst, hemorrhagic ovarian cyst, ovarian torsion, tubo-ovarian abscess/PID and cystic ovarian neoplasm.? Recommend sonography follow-up.? Lobulated right lower lobe subpleural airspace opacities with calcifications unchanged from prior. ? She was sent for surgical consultation.? She does state that prior to this she had consumed more dairy product than usual and chocolate as well as some eggs. Patient was seen as a surgical consultation on 03/22/2022. The options were discussed with her. She did wish to pursue cholecystectomy. Of note, she had tested positive for streptococcal pharyngitis the following day and was noted to have a leukocytosis. She completed a course of antibiotics and feels at baseline regarding this issue. Given the findings on her imaging it was recommended the patient ultimately follow-up with her make ready mechanic. Arrangements were made for laparoscopic possibly open cholecystectomy. Operative findings:: Patient had some fatty infiltration of liver. She had a distended gallbladder with multiple small gallstones. Ovaries were unable to be evaluated laparoscopically from this laparoscopic viewpoint. Operative note:: Consent was obtained patient was taken to the operating room. She was given preoperative intravenous antibiotics. In the operating room she is placed in a supine position. General anesthesia was induced via endotracheal tube. Abdomen was prepped and draped in the standard surgical fashion. Subumbilical skin incision was made. Dissection was carried down to the fascia. While performing abdominal wall lift Veress needle was inserted. CO2 pneumoperitoneum was achieved to 15 mmHg. 11 mm optical trocar was inserted at the umbilicus. Intraperitoneal contents were visualized. She was positioned in reverse Trendelenburg with left side down. A couple of 5 mm trochars were inserted in the right abdomen. 10 mm trocar was inserted in the epigastrium. Gallbladder was identified and retracted anteriorly and superiorly over the dome of the liver. She had some fatty infiltration of the liver. Infundibulum of the gallbladder was retracted anterior laterally. Blunt dissection was carried out at the neck of the gallbladder bluntly incising the visceral peritoneum. Dissection was carried out clearly identifying the cystic duct and cystic artery. Cystic duct was isolated, multiply clipped and sharply divided. Cystic artery was carefully coagulated with KIRBY ultrasonic harmonic osmin and divided. Gallbladder was dissected free from the liver in a retrograde fashion using KIRBY ultrasonic harmonic osmin. Gallbladder was placed within an Endo Catch retrieval device and removed from the peritoneal cavity via the umbilical trocar site which required some extension of the fascial incision for delivery. The pelvic organs were unable to be visualized from this laparoscopic viewpoint. Gallbladder fossa was inspected for hemostasis which was assured. Plan was made for closure of fascia using the laparoscopic needle close device.
--- NOTE | 2022-04-02 11:32 | EXP.ANES.I ---
[facility] Anesthesia Record Part I Anesthesia Record I Intake, IV Amount: 1,000 Estimated blood loss (mL): 10 Urine output (mL): 0 Blood Products used (#): none Blood Pressure: 140/102 SaO2: 93 Pulse Rate: 81 Respiratory Rate: 16 Temperature: 97.5 F Patient is:: Drowsy and Stable Stable to PACU at:: 11:30
--- NOTE | 2022-04-02 12:37 | SUR.PHASEII ---
attempting to reach dr. park office since patient got to post op for follow up appointment time, unable to get ahold of anyone. patient aware of need to call office if no answer before patient leaves facility.
--- NOTE | 2022-04-02 14:45 | EXP.ANES.II ---
[facility] Anesthesia Record Part II Anesthesia Record Part II Discharge Time: 12:10 Destination: Surgical Day Care (OP Surgery) PACU nurse assessment reviewed?: Yes Patient Condition:: Good Anesthesia Complications:: None Swallowing reflex intact?: Yes Cyanosis?: No Blood Pressure: 138/99 Pulse Rate: 83 Temperature: 97.2 F Mental Status: Alert & Oriented Pain level:: 0 Nausea and/or vomitting:: None Intake, IV Amount: 0
== END 2022-04-02 12:55 | disposition home or self-care (01) ==
PROVIDERS: PCP Nurse Practitioner Family; Visit Provider Surgery
PROC: 0FT44ZZ Resection of Gallbladder, Percutaneous Endoscopic Approach (ICD-10-PCS; CPT 47562; principal; 2022-04-02 11:00)
DX: K80.10 Calculus of gallbladder with chronic cholecystitis without obstruction (principal); K82.9 Disease of gallbladder, unspecified
CPT/HCPCS: 47562; 81025; 96374; J2405; J2710

== ENCOUNTER → 2022-05-10 10:27 | Outpatient (CLI) | payer OTHER, SELFPAY ==
--- NOTE | 2022-05-10 10:27 | US_ITS ---
FINAL REPORT CLINICAL HISTORY: ovarian cyst FINDINGS: Transvaginal sonographic images of the pelvis were obtained. The uterus measures 9.2 x 5.7 x 5.0 cm. The endometrium measures 10 mm, which is within normal limits for a premenopausal patient. No uterine mass is identified. The right ovary measures 4.6 cm in length and left ovary measures 3.0 cm in length. Normal blood flow seen to the ovaries. Small cysts and follicle follicles are present in both ovaries. A dominant right ovarian cyst measures 2.7 x 2.4 cm. There is no evidence of free fluid. IMPRESSION: Cysts and follicles in both ovaries measuring up to 2.7 x 2.4 cm on the right. Reviewed, Interpreted and Dictated by Jimmy Lindo MD Transcribed by Diana Li Authenticated and [facility]
== END ==
PROVIDERS: PCP Emergency Medicine; Visit Provider Nurse Practitioner Obstetrics & Gynecology
DX: N83.209 Unspecified ovarian cyst, unspecified side (principal)
CPT/HCPCS: 76830

== ENCOUNTER → 2022-12-26 09:50 | Outpatient (CLI) | payer OTHER, SELFPAY ==
[2022-12-27 11:21] LABS: HIV Screen 4th Generation wRfx Non Reactive (Non Reactive)
[2022-12-27 12:13] LABS: Rapid Plasma Reagin Ab Titer Non Reactive titer (NonRea<1:1)
[2023-01-01 15:02] LABS: HSV 1 IgG, Type Spec 7.22; HSV 2 IgG, Type Spec <0.91
== END ==
PROVIDERS: PCP Emergency Medicine; Visit Provider Nurse Practitioner Obstetrics & Gynecology
DX: Z11.3 Encounter for screening for infections with a predominantly sexual mode of transmission (principal)
CPT/HCPCS: 36415; 86593; 86695; 86703; 86790; G0432

== ENCOUNTER → 2023-01-10 23:08 | Outpatient (CLI) | payer OTHER, SELFPAY ==
[2023-01-10 18:49] LABS: Basophils % 0.4 % (0.1-2.0); Eosinophils # 0.1 K/mm3 (0.0-0.4); Eosinophils % 0.9 % (0.1-12.0); Hematocrit 44.3 % (37.0-47.0); Hemoglobin 15.1 g/dL (12.2-16.2); Lymphocytes # 1.7 K/mm3 (0.7-4.5); Mean Corpuscular HGB Conc 34.1 g/dL (31.8-35.4); Mean Corpuscular Hemoglobin 31.4 pg (27.0-31.2); Mean Corpuscular Volume 92.1 fl (81-99); Mean Platelet Volume 10.1 fl (7.4-10.4); Monocytes # 0.5 K/mm3 (0.1-1.0); Neutrophils # 6.8 K/mm3 (1.8-7.8); Neutrophils % 74.6 % (37.0-80.0); Platelet Count 208 K/mm3 (142-424); Red Blood Count 4.81 M/mm3 (4.20-5.40); Red Cell Distribution Width 13.2 % (11.5-17.5); White Blood Count 9.1 K/mm3 (4.8-10.8)
[2023-01-10 19:06] LABS: Alanine Aminotransferase 22 U/L (12-78); Albumin Level 4.6 g/dl (3.5-5.0); Aspartate Amino Transferase 35 U/L (14-36); Bilirubin,Total 1.2 mg/dl (0.2-1.3); Blood Urea Nitrogen 17 mg/dl (7-17); Calcium 9.6 mg/dl (8.4-10.2); Carbon Dioxide 28 mmol/L (22.0-30.0); Chloride 104 mmol/L (98-107); Estimated Glomerular Filt Rate 117 ml/min (>60); GFR (African American) 142 ML/MIN (>60); Globulin 3.4 g/dL (1.3-3.2); Glucose 101 mg/dl (74-100); Potassium 4.1 mmoL/L (3.5-5.1)
[2023-01-10 19:07] LABS: Albumin/Globulin Ratio 1.4 (1.1-1.8); Alkaline Phosphatase 48 U/L (38-126); Cholesterol 213 mg/dl (140-200); HDL Cholesterol 43 mg/dl (40-60); Triglycerides 116 mg/dl (30-150); VLDL Cholesterol 23 mg/dL (0-40)
[2023-01-10 19:23] LABS: 25-OH Vitamin D, Total 36.1 ng/mL (30-100)
[2023-01-10 20:57] LABS: Anion Gap 13.1 mEq/L (5-15); Sodium 141 mmol/L (136-145)
== END ==
PROVIDERS: PCP Emergency Medicine; Visit Provider Internal Medicine
DX: E55.9 Vitamin D deficiency, unspecified (principal); Z68.29 Body mass index [BMI] 29.0-29.9, adult
CPT/HCPCS: 80053; 80061; 82306; 85025

== ENCOUNTER → 2023-02-04 07:31 | Outpatient (CLI) | payer OTHER, SELFPAY | PROVIDERS: PCP Internal Medicine; Visit Provider Internal Medicine | DX: N89.8 Other specified noninflammatory disorders of vagina (principal) | CPT/HCPCS: 87086 ==

== ENCOUNTER → 2023-02-15 07:55 | Outpatient (CLI) | payer OTHER, SELFPAY ==
[2023-02-15 08:17] LABS: Basophils # 0.1 K/mm3 (0-0.2); Basophils % 0.6 % (0.1-2.0); Eosinophils # 0.1 K/mm3 (0.0-0.4); Eosinophils % 1.6 % (0.1-12.0); Hematocrit 44.1 % (37.0-47.0); Hemoglobin 15.4 g/dL (12.2-16.2); Lymphocytes # 2.4 K/mm3 (0.7-4.5); Lymphocytes % 29.2 % (10-50); Mean Corpuscular HGB Conc 34.8 g/dL (31.8-35.4); Mean Corpuscular Hemoglobin 31.2 pg (27.0-31.2); Mean Corpuscular Volume 89.8 fl (81-99); Mean Platelet Volume 8.3 fl (7.4-10.4); Monocytes # 0.3 K/mm3 (0.1-1.0); Monocytes % 3.6 % (1.7-9.3); Neutrophils # 5.3 K/mm3 (1.8-7.8); Neutrophils % 64.9 % (37.0-80.0); Platelet Count 216 K/mm3 (142-424); Red Blood Count 4.92 M/mm3 (4.20-5.40); Red Cell Distribution Width 13.1 % (11.5-17.5); White Blood Count 8.1 K/mm3 (4.8-10.8)
[2023-02-15 09:03] LABS: Alanine Aminotransferase 20 U/L (12-78); Albumin Level 4.5 g/dl (3.5-5.0); Albumin/Globulin Ratio 1.6 (1.1-1.8); Alkaline Phosphatase 62 U/L (38-126); Anion Gap 10.4 mEq/L (5-15); Aspartate Amino Transferase 28 U/L (14-36); Bilirubin,Total 0.5 mg/dl (0.2-1.3); Blood Urea Nitrogen 24 mg/dl (7-17); Calcium 9.2 mg/dl (8.4-10.2); Carbon Dioxide 28 mmol/L (22.0-30.0); Chloride 107 mmol/L (98-107); Chol/HDL Ratio 5.3 (1-3.5); Cholesterol 239 mg/dl (140-200); Estimated Glomerular Filt Rate 84 ml/min (>60); GFR (African American) 102 ML/MIN (>60); Globulin 2.8 g/dL (1.3-3.2); Glucose 98 mg/dl (74-100); HDL Cholesterol 45 mg/dl (40-60); Potassium 4.4 mmoL/L (3.5-5.1); Sodium 141 mmol/L (136-145); Total Protein,Serum 7.3 g/dl (6.3-8.2); Triglycerides 175 mg/dl (30-150); VLDL Cholesterol 35 mg/dL (0-40)
[2023-02-15 09:14] LABS: Direct LDL Cholesterol 150.17 mg/dL (100-129)
[2023-02-15 09:19] LABS: 25-OH Vitamin D, Total 38.1 ng/mL (30-100)
[2023-02-15 09:20] LABS: T4 (Thyroxine) 9.2 ug/dl (5.53-11.0)
[2023-02-15 09:34] LABS: Thyroid Stimulating Hormone 0.82 uIU/mL (0.465-4.68)
[2023-02-15 12:12] LABS: Hemoglobin A1C 5.1 % (4.0-6.0)
[2023-02-16 08:46] LABS: FSH 9.6 mIU/mL (.); LH 10.4 mIU/mL (.); Testosterone,Total 22 ng/dL (13-71)
[2023-02-16 11:17] LABS: Insulin Level Total 10.5 uIU/mL (2.6-24.9)
[2023-02-19 00:08] LABS: Estrogen 84 pg/mL (.)
== END ==
PROVIDERS: PCP Physician Assistant; Visit Provider Physician Assistant
DX: E28.2 Polycystic ovarian syndrome (principal); K76.0 Fatty (change of) liver, not elsewhere classified; E66.09 Other obesity due to excess calories; Z68.30 Body mass index [BMI] 30.0-30.9, adult; Z79.899 Other long term (current) drug therapy
CPT/HCPCS: 36415; 80053; 80061; 82306; 82672; 83001; 83002; 83036; 83525; 84403; 84436; 84443; 85025

== ENCOUNTER → 2023-02-18 16:15 | Outpatient (CLI) | payer OTHER, SELFPAY ==
[2023-02-18 13:50] LABS: Influenza A, PCR Not Detected (NotDetected); Influenza B, PCR Not Detected (NotDetected)
[2023-02-18 14:25] LABS: Coronavirus 19, PCR Detected (NotDetected)
== END ==
PROVIDERS: PCP Physician Assistant; Visit Provider Internal Medicine
DX: R06.02 Shortness of breath (principal); U07.1 COVID-19
CPT/HCPCS: 87636

== ENCOUNTER → 2023-03-14 12:51 | Outpatient (CLI) | payer OTHER, SELFPAY ==
--- NOTE | 2023-03-14 12:55 | XR_ITS ---
FINAL REPORT TECHNIQUE: Chest PA & Lateral CLINICAL HISTORY: Shortness of breath, right lung pain.. COMPARISON: 03/12/2022 FINDINGS: 2 views of the chest were performed. The heart size is normal. The mediastinum is within normal limits. There is no acute cardiopulmonary process. There are no pleural effusions. There is no pneumothorax. The bony thorax appears intact. IMPRESSION: No acute cardiopulmonary process. Reviewed, Interpreted and Dictated by Jimmy Lindo MD Transcribed by Senia Up Authenticated and [facility]
== END ==
PROVIDERS: PCP Physician Assistant; Visit Provider Family Medicine
DX: R06.02 Shortness of breath (principal); R06.09 Other forms of dyspnea
CPT/HCPCS: 71046

== ENCOUNTER 2023-09-18 10:05 | Outpatient (CLI) | payer OTHER, SELFPAY ==
[2023-09-18 18:40] LABS: Basophils # 0.1 K/mm3 (0-0.2); Basophils % 0.5 % (0.1-2.0); Eosinophils # 0.1 K/mm3 (0.0-0.4); Eosinophils % 0.9 % (0.1-12.0); Hematocrit 45.9 % (37.0-47.0); Hemoglobin 15.3 g/dL (12.2-16.2); Lymphocytes # 2.1 K/mm3 (0.7-4.5); Mean Corpuscular HGB Conc 33.4 g/dL (31.8-35.4); Mean Corpuscular Hemoglobin 31.1 pg (27.0-31.2); Mean Corpuscular Volume 93.2 fl (81-99); Mean Platelet Volume 10.6 fl (7.4-10.4); Monocytes # 0.4 K/mm3 (0.1-1.0); Monocytes % 3.8 % (1.7-9.3); Neutrophils # 7.7 K/mm3 (1.8-7.8); Neutrophils % 74.8 % (37.0-80.0); Platelet Count 211 K/mm3 (142-424); Red Blood Count 4.92 M/mm3 (4.20-5.40); Red Cell Distribution Width 13.6 % (11.5-17.5); White Blood Count 10.3 K/mm3 (4.8-10.8)
[2023-09-18 18:54] LABS: Alanine Aminotransferase 14 U/L (12-78); Albumin Level 4.5 g/dl (3.5-5.0); Albumin/Globulin Ratio 1.5 (1.1-1.8); Alkaline Phosphatase 56 U/L (38-126); Amylase 46 U/L (30-110); Anion Gap 17.1 mEq/L (5-15); Aspartate Amino Transferase 21 U/L (14-36); Bilirubin,Indirect 0.8 mg/dL (0.0-0.9); Bilirubin,Total 0.8 mg/dl (0.2-1.3); Bilirubin,Unconjugated 0.8 mg/dL (0.0-1.1); Blood Urea Nitrogen 22 mg/dl (7-17); Calcium 9.8 mg/dl (8.4-10.2); Carbon Dioxide 22 mmol/L (22.0-30.0); Chloride 108 mmol/L (98-107); Chol/HDL Ratio 6.1 (1-3.5); Cholesterol 227 mg/dl (140-200); Estimated Glomerular Filt Rate 84 ml/min (>60); GFR (African American) 101 ML/MIN (>60); Glucose 109 mg/dl (74-100); HDL Cholesterol 37 mg/dl (40-60); Lipase 78 U/L (23-300); Potassium 4.1 mmoL/L (3.5-5.1); Sodium 143 mmol/L (136-145); Total Protein,Serum 7.5 g/dl (6.3-8.2); Triglycerides 155 mg/dl (30-150); VLDL Cholesterol 31 mg/dL (0-40)
[2023-09-18 19:25] LABS: Thyroid Stimulating Hormone 1.39 uIU/mL (0.465-4.68)
[2023-09-18 19:44] LABS: Vitamin B12 320 pg/mL (239-931)
== END 2023-09-18 23:59 | disposition home or self-care (01) ==
LOC: LAB.DROPOF 09-19 10:06
PROVIDERS: Visit Provider Family Medicine
DX: K76.0 Fatty (change of) liver, not elsewhere classified (principal); R03.0 Elevated blood-pressure reading, without diagnosis of hypertension; E66.09 Other obesity due to excess calories; Z68.30 Body mass index [BMI] 30.0-30.9, adult; M54.32 Sciatica, left side
CPT/HCPCS: 80050; 80053; 80061; 80076; 82150; 82607; 83036; 83690; 84443; 85025

== ENCOUNTER 2023-09-30 06:40 | Outpatient (CLI) | payer OTHER, SELFPAY ==
--- NOTE | 2023-09-30 06:43 | CT_ITS ---
FINAL REPORT TECHNIQUE: After the administration of intravenous contrast, axial images were obtained through the abdomen and pelvis by computed tomography. Oral contrast was also administered. This study was performed with technique to keep radiation doses as low as reasonably achievable, (ALARA). Individualized dose reduction techniques using automated exposure control or adjustment of the MA and/or KV according to the patient's size were employed. CLINICAL HISTORY: n/v/ chronic constipation, abdominal pain COMPARISON: 03/12/2022 FINDINGS: Abdomen: The lung bases demonstrate patchy groundglass opacities which may represent pneumonia or edema. There is a nodule at the right lung base with central calcification measuring 15 mm, stable from prior exam which likely represents a granuloma. Patient is status postcholecystectomy. There is no biliary ductal dilatation. The liver is normal in size and attenuation. The spleen is unremarkable. The adrenals are normal. The pancreas is unremarkable. The kidneys enhance appropriately. The aorta is normal in caliber. There is no free fluid or adenopathy. There is a small umbilical hernia containing fat. Bowel is unremarkable. Pelvis: The appendix is normal. There has been interval improvement in the left ovarian cyst seen on prior exam. The urinary bladder is unremarkable. There is no free fluid or adenopathy. IMPRESSION: Patchy groundglass opacities at the lung bases which may represent pneumonia or edema. Interval improvement in previously seen left ovarian cyst. Reviewed, Interpreted and Dictated by Wayne Mar III, MD Transcribed by Sunshine Danielson Authenticated and [facility]
[2023-09-30] MEDS: SODIUM CHLORIDE 0.9% 10ML SYR (RAD ONLY) 10 ML IV (07:47)
[2023-09-30] MEDS: BARIUM SULFATE(READI-CAT2);450ML BOTTLE 450 ML PO (07:48)
[2023-09-30] MEDS: IOPAMIDOL-370 (76%);100ML BOTTLE 75 ML IV (07:48)
== END 2023-09-30 23:59 | disposition home or self-care (01) ==
LOC: RAD 06:41
PROVIDERS: PCP Family Medicine; Visit Provider Family Medicine
DX: K76.0 Fatty (change of) liver, not elsewhere classified (principal); R11.2 Nausea with vomiting, unspecified; R10.11 Right upper quadrant pain; K59.09 Other constipation; M54.50 Low back pain, unspecified
CPT/HCPCS: 74177; Q9967

== ENCOUNTER 2024-03-26 08:50 | Emergency (ER) | payer OTHER, SELFPAY ==
[2024-03-26 08:55] VITALS: BP 153/118; PULSE 82; O2SAT 99
[2024-03-26 08:57] VITALS: BP 157/130; PULSE 80; O2SAT 99
[2024-03-26 09:00] VITALS: BP 148/99; PULSE 65; O2SAT 96
[2024-03-26 09:13] VITALS: BP 134/92; PULSE 87; RESP 20; TEMP 36.6; O2SAT 98
[2024-03-26 09:15] VITALS: BP 134/92; PULSE 74; O2SAT 98
--- NOTE | 2024-03-26 09:17 | HMH.EDGENADL ---
Discharge Plan Disposition Patient Disposition: Home, Self-Care Chief Complaint: Nausea/Vomiting/Diarrhea Prescriptions Prescriptions: No Action methylprednisolone [Medrol (Paulie)] 4 mg tablets,dose pack See Rx Instructions PO PER PKG DIR Qty: 21 0RF Rx Instructions: PO PER PKG DIR for 6 days docusate sodium [Colace] 100 mg capsule 100 mg PO DAILY PRN (Reason: constipation) Qty: 30 0RF All Day Allergy (cetirizine) 10 mg capsule 10 mg PO DAILY Qty: 30 0RF fluticasone propionate 50 mcg/actuation spray,suspension 1 spray intranasal DAILY PRN (Reason: nasal congestion) Qty: 16 0RF Rx Instructions: administer into each nostril atorvastatin [Lipitor] 20 mg tablet 20 mg PO DAILY Qty: 30 2RF ondansetron 8 mg tablet,disintegrating 8 mg PO Q12H PRN (Reason: nausea and vomiting) Qty: 20 0RF Referrals Follow up/Referrals: Josef Newby DO [Primary Care Provider] - See instructions Activity Restrictions/Add. Instructions Additional Instructions/Restrictions: Call your family doctor to establish care for this visit to the emergency department and schedule follow-up within 48 hours to ensure improvement. If you have any worsening of your condition or any other concerning signs or symptoms, return to the emergency department or your primary care doctor for further evaluation. If you begin having symptoms of constipation again, 1 capful of MiraLAX twice daily for 48 hours followed by 1 capful of MiraLAX thereafter until having 1-2 soft bowel movements per day. Clinical Impressions Clinical Impression: Constipation Instructions Patient Instructions: DI for Nausea -- Adult, DI for Nausea -- Child, DI for Diarrhea and Traveler's Diarrhea -- Adult, DI for Diarrhea and Traveler's Diarrhea -- Child Print Language Print Language: Belizean Discharge ED Provider: Chung Piedra General Adult HPI General Chief complaint: Nausea/Vomiting/Diarrhea Stated complaint: no bowel movement 6 days Time Seen by Provider: 03/26/24 08:53 History of Present Illness HPI narrative: Please note that above description of symptoms, in this electronic medical record under categorization of recalled from ER triage doctor by RN are reflective of an initial nursing assessment, however, is not reflective of my full history and physical exam that was personally taken and clarified. Consequentially, this preceding description of symptoms, which may include the patient's categorized chief complaint in the EMR, do not reflect my personal clinical impression, and the ultimate description of history of present illness and patient stated complaints should be deferred to this section of the note. Unless stated otherwise or congruent with this section of the note, additional signs, symptoms, or incongruence should be interpreted as inaccurate with my clinical impression. Related Data Previous Rx's ?Medication ?Instructions ?Recorded atorvastatin 20 mg tablet (Lipitor) 20 mg PO DAILY #30 tabs 09/18/23 cetirizine 10 mg capsule (All Day 10 mg PO DAILY #30 caps 09/18/23 Allergy (cetirizine)) docusate sodium 100 mg capsule 100 mg PO DAILY PRN constipation 09/18/23 (Colace) #30 caps fluticasone propionate 50 1 spray intranasal DAILY PRN nasal 09/18/23 mcg/actuation nasal congestion #16 grams spray,suspension methylprednisolone 4 mg tablets in See Rx Instructions PO PER PKG DIR 09/18/23 a dose pack (Medrol (Paulie)) #21 tabs ondansetron 8 mg disintegrating 8 mg PO Q12H PRN nausea and 09/20/23 tablet vomiting #20 tabs Allergies Allergy/AdvReac Type Severity Reaction Status Date / Time No Known Allergies Allergy Verified 09/18/23 08:42 [facility] Disclaimer: The information contained in this section may have been updated after the patient was seen, as this information can be updated by other users. Medical History (Updated 03/26/24 @ 10:22 by Chung Piedra MD) Cholelithiasis Cholecystitis with cholelithiasis Pharyngitis due to Streptococcus species Obesity Vitamin D deficiency (~07/01/17) Swelling of both hands Tingling in extremities Depression Hypertension Hives Vitiligo Amin's palsy Surgical History History of cholecystectomy History of section Family History Other No significant family history Social History Smoking Status: Never smoker second hand exposure: No alcohol intake: never substance use type: denies use current occupational status: employed Travel in the last 8 weeks: None household members: children housing: apartment caffeine: Yes Have you lived/traveled outside US in past 30 days?: No Contact w/someone who lives/traveled outside US past 30 days?: No Exposure to someone with infectious disease in past 14 days?: No Do you have a fever (greater than 100.4 F or 38 C)?: No Have you tested positive for COVID-19: No Exposed to someone with COVID-19 in past 14 days?: No Do you have a sore throat?: No Do you have a cough?: No Do you have any weakness?: No Do you have any diarrhea?: No Are you experiencing any unusual bleeding?: No Do you have any muscle aches/pain?: No Do you have any abdominal pain?: No Are you experiencing loss of taste or smell?: No Other Medical History Have you received the Flu Vaccine for this season: No Have you received the Pneumonia Vaccine: No ROS Obtained: Yes All systems reviewed & no additional complaints except as documented Physical Exam General General appearance: alert Head Head exam: atraumatic and normocephalic Eye Eye exam: Present normal appearance, PERRL and EOMI Neck Neck exam: Present normal inspection, full ROM and trachea midline Respiratory Respiratory exam: Absent respiratory distress, wheezes, stridor, accessory muscle use or prolonged expiratory phase Cardiovascular Cardiovascular exam: Present other (Pulses equal symmetric in upper and lower extremities) Abdominal Exam Abdominal exam: Present soft; Absent distention, tenderness, guarding, rebound, rigidity or pulsatile mass Extremities Exam Extremities exam: Absent edema Neurological Exam Neurological exam: Present alert, oriented X3 and CN II-XII intact; Absent motor sensory deficit Skin Skin exam: Present warm and dry; Absent diaphoresis or erythema Medical Decision Making Medical Records Medical records reviewed: Yes I reviewed the patient's medical records. Screening: Per USPSTF and CDC recommendations, given the prevalence of disease in our region, it is our hospital?s policy to screen for HIV and viral Hepatitis for all patients aged 18 and over and those with ongoing risk factors. Jack Inquiry Pt receiving controlled substance: No Jack was queried for this patient: No Vital Signs: 03/26/24 08:55 03/26/24 08:57 03/26/24 09:00 Temperature Temperature Source Pulse Rate 82 80 65 Pulse Rate [Right Radial] Respiratory Rate Blood Pressure 153/118 H 157/130 H 148/99 H Blood Pressure [Right Arm] Blood Pressure Mean [Right Arm] Blood Pressure Position [Right Arm] 02 Sat by Pulse Oximetry 99 99 96 Oxygen Delivery Method Room Air Room Air Room Air 03/26/24 09:13 03/26/24 09:15 Temperature 97.9 F Temperature Source Oral Pulse Rate 74 Pulse Rate [Right Radial] 87 Respiratory Rate 20 Blood Pressure 134/92 H Blood Pressure [Right Arm] 134/92 H Blood Pressure Mean [Right Arm] 106 Blood Pressure Position [Right Arm] Sitting 02 Sat by Pulse Oximetry 98 98 Oxygen Delivery Method Room Air Orders (Tests/Meds): ED MEDICATIONS Discontinued Medications Generic Name Dose Route Start Last Admin Trade Name Freq PRN Reason Stop Dose Admin Magnesium Hydroxide 30 ml 03/26/24 09:09 03/26/24 09:31 Milk Of Magnesia 30ml Udc PO 03/26/24 09:10 30 ml ONCE ONE Administration Medical Decision Narrative: 33-year-old female presenting with abdominal cramping. Patient states that she has not had a bowel movement in 6 days. She has had numerous lifestyle changes including weight loss, exercise, stopping smoking, eating better, etc. Last bowel movement that was meaningful was about 6 days ago. Took senna yesterday, 03/25, after that had small liquidy bowel movement that she said was just a couple tablespoons. Has not been vomiting. Still passing gas. Has abdominal surgical history of sections and tubal ligation, but no other relevant history. States that the abdominal cramping is suprapubic, does not radiate, intermittent. Denies any urinary symptoms otherwise. History was obtained via conversation with patient. On arrival, patient hemodynamically stable, alert, oriented x4, appropriate, GCS 15, moving all extremities spontaneously, pupils equal and reactive to light. Full physical exam performed and significant for 33-year-old female no acute distress. Abdomen completely benign. No flank tenderness. No overlying skin changes. Speaking in full sentences and clinically very well. Differential includes constipation, urinary tract infection. Patient placed on continuous cardiac monitoring and continuous pulse ox with initial blood pressure 153/118, heart rate 82, saturation 99% on room air. Patient was given milk of magnesia and milk/molasses enema for symptomatic management and correction of underlying abnormalities. Hematologic workup considered, but not deemed necessary because patient very well-appearing, benign abdominal exam, still passing gas, and very low clinical concern for any underlying pathology. Imaging was also considered, but not performed, including CT scan, given reasons just listed. On reevaluation, patient multiple large-volume bowel movements and feeling better in terms of abdominal cramping, but now feeling lightheaded due to number of bowel movements. Was given p.o. water for this. Patient feels comfortable going home on reevaluation. I feel this is appropriate. Given patient presentation, workup, history, this most likely represents constipation. Because patient at baseline without signs or symptoms of clinical decompensation, deemed appropriate for discharge. Results were relayed to patient who voiced understanding and were agreeable to outpatient management and follow up. I discussed my clinical impression with patient and answered all questions. At this time, the evidence for any other entities in the differential is insufficient to warrant any further testing or ED observation. This was explained as well. Advisory was given that persistent or worsening symptoms require further evaluation. I confirmed the understanding of this discussion. Auger Operator disclaimer Much of this encounter note is an electronic caddy/caddie supervisor spoken language to printed text. Electronic caddy/caddie supervisor of the spoken language may permit errors. Although I have reviewed the note, some errors may still exist. Critical Care Critical Care Time Critical Care Time: No
[2024-03-26] MEDS: MILK OF MAGNESIA 30ML UDC 30 ML PO (09:31)
--- NOTE | 2024-03-26 09:43 | PC.NURSE ---
BEDSIDE COMMODE SET-UP FOR PT
--- NOTE | 2024-03-26 10:07 | PC.NURSE ---
DR BRITO AT BEDSIDE TO REEVALUATE PT
[2024-03-26 10:25] VITALS: BP 159/97; PULSE 80; RESP 17; TEMP 36.6; O2SAT 97
== END 2024-03-26 10:26 | disposition home or self-care (01) ==
PROVIDERS: Emergency Provider Emergency Medicine; PCP Internal Medicine
DX: K59.00 Constipation, unspecified (principal); R10.2 Pelvic and perineal pain
CPT/HCPCS: 99283

== ENCOUNTER 2024-04-03 09:08 | Outpatient (CLI) | payer MEDICAID, SELFPAY | END 2024-04-03 23:59 | disposition home or self-care (01) | LOC: LAB.DROPOF 04-04 10:28 | PROVIDERS: PCP Nurse Practitioner Family; Visit Provider Nurse Practitioner Family | DX: R10.32 Left lower quadrant pain (principal) | CPT/HCPCS: 87086 ==

== ENCOUNTER 2024-05-07 09:07 | Outpatient (CLI) | payer MEDICAID, SELFPAY ==
[2024-05-07 20:01] LABS: Alanine Aminotransferase 35 U/L (12-78); Albumin Level 4.3 g/dl (3.5-5.0); Alkaline Phosphatase 49 U/L (38-126); Anion Gap 17.1 mEq/L (5-15); Aspartate Amino Transferase 35 U/L (14-36); Bilirubin,Total 0.5 mg/dl (0.2-1.3); Blood Urea Nitrogen 23 mg/dl (7-17); Calcium 9.2 mg/dl (8.4-10.2); Carbon Dioxide 22 mmol/L (22.0-30.0); Chloride 106 mmol/L (98-107); Chol/HDL Ratio 4.8 (1-3.5); Cholesterol 222 mg/dl (140-200); Estimated Glomerular Filt Rate 117 ml/min (>60); GFR (African American) 141 ML/MIN (>60); Globulin 2.2 g/dL (1.3-3.2); Glucose 107 mg/dl (74-100); HDL Cholesterol 46 mg/dl (40-60); Potassium 4.1 mmoL/L (3.5-5.1); Sodium 141 mmol/L (136-145); Total Protein,Serum 6.5 g/dl (6.3-8.2); Triglycerides 218 mg/dl (30-150); VLDL Cholesterol 44 mg/dL (0-40)
[2024-05-07 20:14] LABS: Direct LDL Cholesterol 122.99 mg/dL (100-129)
== END 2024-05-07 23:59 | disposition home or self-care (01) ==
LOC: LAB.DROPOF 05-08 12:43
PROVIDERS: PCP Family Medicine; Visit Provider Family Medicine
DX: Z00.00 Encounter for general adult medical examination without abnormal findings (principal)
CPT/HCPCS: 80053; 80061

== ENCOUNTER 2024-07-28 09:07 | Outpatient (CLI) | payer MEDICAID, SELFPAY ==
--- NOTE | 2024-07-28 09:12 | XR_ITS ---
FINAL REPORT CLINICAL HISTORY: Right knee pain COMPARISON: None FINDINGS: RIGHT KNEE Three views demonstrate no acute fracture or dislocation. The joint spaces appear normal. No acute soft tissue abnormality is seen. IMPRESSION: No acute bony abnormality. Reviewed, Interpreted and Dictated by Jimmy Lindo MD Transcribed by Fariha Mauro Authenticated and [facility]
== END 2024-07-28 23:59 | disposition home or self-care (01) ==
LOC: RAD 09:08
PROVIDERS: PCP Family Medicine; Visit Provider Student in an Organized Health Care Education/Training Program
DX: M25.561 Pain in right knee (principal)
CPT/HCPCS: 73562

== ENCOUNTER 2024-08-14 15:34 | Outpatient (CLI) | payer MEDICAID, SELFPAY | END 2024-08-14 23:59 | disposition home or self-care (01) | LOC: LAB 15:35 | PROVIDERS: PCP Family Medicine; Visit Provider Nurse Practitioner Family | DX: R14.0 Abdominal distension (gaseous) (principal) | CPT/HCPCS: 82656 ==

== ENCOUNTER 2024-11-28 15:45 | Emergency (ER) | payer MEDICAID, SELFPAY ==
[2024-11-28 15:51] VITALS: BP 165/125; PULSE 96; RESP 15; TEMP 36.9; O2SAT 98; BMI 34.0
--- OUTSIDE RECORDS SUMMARY | 2024-11-28 15:51 | XMS_ITS | Clinical Summary ---
[facility] Address [address] [place] [address] Care Team Providers Care Contract Manager Name Role Phone Provider, No Known Primary Care Provider Unavail able Social History Tobacco Use Types Packs/Day Years Used Date Smoking Tobacco: Never Assessed Abuse Screen Answer Date Recorded Unsafe at Home or Work/School Not on file Feels Threatened by Someone? Not on file 01/2023 Does Anyone Keep You from Co ntacting Others or Doint Things Outside the Home? Not on file 01/09/2023 Physical Sign of Abuse Present Not on file 1 Housing Stability Answer Date Recorded Current Living Arrangements Not on file 12/30 Potentially Unsafe Housing Conditions Not on naomi e 01/09/2023 Family and Community Support Answer Warren e Recorded Help with Day-to-Day Activities Not on file 01/09/2023 Lonely or Isolated Not on file 01/09/2023 Employment Answer Date Recorded Do you want help finding or keeping work or a rosa maria b? Not on file 01/09/2023 Disabilities Answer Date Recorded Concentrating, Remembering, or Making Decisions Difficulty Not on file 01/09/2023 Doing Errands Independently Difficulty Not on fi le 01/09/2023 Education Answer Date Recorded Help with school or training? Not on file Preferred Language Not on file 01/09/2023 Comments Unknown Sex and Gender Information Value Date Recorded Sex Assigned at Not on file Legal Sex Female 6:03 PM EDT Gender Identity Not on file Sexual Orientation Not on file Plan of Treatment Health Maintenance Due Date Last Done Comments ANNUAL PHYSICAL 1992 Annual Gynecologic Pelvic an d Breast Exam 1992 HEPATITIS C SCREENING 1992 TDAP/TD VACCINES (1 - Tdap) 08/09/2011 COVID-19 Vaccine (2023-2 5 season) 2023 INFLUENZA VACCINE 12/30/2024 Pneumococcal Vaccine 0-49 Aged Out No longer eligible based on patient's age to complete this topic Care Teams Contract Manager Relationship Specialty Start Date End Date Provider, [place] [address] PCP - General 01/27/15
--- NOTE | 2024-11-28 15:53 | ED_ITS ---
<Statement entered by Natan Macias MD - 11/28/24 17:58> I was consulted by the GISEL, and we discussed the complexity of the problems being addressed. I approve the treatment and management plan for this patient's care in the emergency department, thus performing a substantive portion of the medical decision making. Natan Macias MD Discharge Plan Disposition Patient Disposition: Home, Self-Care Condition: Good Prescriptions Prescriptions: No Action methocarbamol 500 mg tablet 500 mg PO TID PRN (Reason: muscle spasm) Qty: 20 0RF lidocaine 5 % adhesive patch,medicated 1 patch topical DAILY PRN (Reason: pain) Qty: 15 0RF Rx Instructions: leave on most painful area for up to 12 hrs then remove for 12 hours Referrals Follow up/Referrals: Casie Greco APRN [Primary Care Provider, Family Practice] - See instructions Activity Restrictions/Add. Instructions Additional Instructions/Restrictions: Please take your medications as prescribed. Please return to the emergency department with any worsening signs or symptoms. I recommend anti-inflammatory medications, heat and ice as needed for symptomatic relief. Please follow-up with your PCP in the upcoming days. Clinical Impressions Clinical Impression: Acute lumbar myofascial strain Instructions Patient Instructions: DI for Low Back Pain Print Language Print Language: Hebrew Discharge ED Provider: Natan Macias General Adult HPI General Chief complaint: Back Pain/Injury Stated complaint: Left rib pain and back Time Seen by Provider: 11/28/24 15:49 Mode of Arrival: Ambulatory Source of Information: Patient and Medical Record Limitations: No Limitations History of Present Illness HPI narrative: 34-year-old female presents the emergency department at the request of urgent care/outside provider, with concern for lower back pain. 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 Patient states she heard a pop , seen in the urgent care today, prescribed methocarbamol as well as lidocaine patch recommended anti- inflammatory medications for symptomatic relief, diagnosed with lumbar musculoskeletal strain, but was prompted to come to the emergency department for x-rays , concern for possible broken bones . Patient denies any fever chills chest pain shortness of breath nausea vomiting constipation diarrhea no abdominal pain, no urinary type symptomatology, no saddle anesthesia, no radicular type symptomatology, no urinary bladder or bowel dysfunction, patient denies any tobacco alcohol or drug use, he has not yet taken her methocarbamol or lidocaine patch, she states that previously hot baths , helped her previous symptomatology. Initial triage vitals are unremarkable. Please note that above description of symptoms, in this electronic medical record under categorization of recalled from ER triage doctor by RN are reflective of an initial nursing assessment, however, is not reflective of my full history and physical exam that was personally taken and clarified. Consequentially, this preceding description of symptoms, which may include the patient's categorized chief complaint in the EMR, do not reflect my personal clinical impression, and the ultimate description of history of present illness and patient stated complaints should be deferred to this section of the note. Unless stated otherwise or congruent with this section of the note, additional signs, symptoms, or incongruence should be interpreted as inaccurate with my clinical impression. Onset (ago): hour(s) Related Data Previous Rx's ?Medication ?Instructions ?Recorded lidocaine 5 % topical patch 1 patch topical DAILY PRN pain #15 11/28/24 ea methocarbamol 500 mg tablet 500 mg PO TID PRN muscle s pasm #20 11/28/24 tabs Allergies Allergy/AdvReac Type Severity Reaction Status Date / Time No Known Allergies Allergy Verified 11/28/24 13:34 [facility] Disclaimer: The information contained in this section may have been updated after the patient was seen, as this information can be updated by other users. Medical History PCOS (polycystic ovarian syndrome) Cholelithiasis Cholecystitis with cholelithiasis Pharyngitis due to Streptococcus species Obesity Vitamin D deficiency (~07/01/17) Swelling of both hands Tingling in extremities Depression Hypertension Blood pressure today was 120/70. Hives Vitiligo Amin's palsy Surgical History History of bilateral salpingectomy History of cholecystectomy History of section Family History Other No significant family history Social History Smoking Status: Never smoker second hand exposure: No alcohol intake: never substance use type: denies use current occupational status: employed Travel in the last 8 weeks?: None household members: children housing: apartment caffeine: Yes Have you lived/traveled outside US in past 30 days?: No Contact w/someone who lives/traveled outside US past 30 days?: No Exposure to someone with infectious disease in past 14 days?: No Do you have a fever (greater than 100.4 F or 38 C)?: No Have you tested positive for COVID-19?: No Exposed to someone with COVID-19 in past 14 days?: No Do you have a sore throat?: No Do you have a cough?: No Do you have any weakness?: No Do you have any diarrhea?: No Are you experiencing any unusual bleeding?: No Do you have any muscle aches/pain?: No Do you have any abdominal pain?: No Are you experiencing loss of taste or smell?: No Other Medical History Have you received the Flu Vaccine for this season: No Have you received the Pneumonia Vaccine: No ROS Obtained: Yes All systems reviewed & no additional complaints except as documented Physical Exam General General appearance: alert and in no apparent distress Head Head exam: atraumatic and normocephalic Eye Eye exam: Present PERRL and EOMI ENT ENT exam: Present mucous membranes moist Neck Neck exam: Present normal inspection Chest Chest inspection: Present normal inspection and symmetric chest wall rise; Absent tenderness Respiratory Respiratory exam: Present normal lung sounds bilaterally; Absent respiratory distress Cardiovascular Cardiovascular exam: Present regular rate and normal rhythm Abdominal Exam Abdominal exam: Present soft; Absent tenderness, guarding, rebound or rigidity Extremities Exam Extremities exam: Present normal inspection Back Exam Back exam: Present normal inspection, full ROM, tenderness and paraspinal tenderness; Absent vertebral tenderness, straight leg raise (R) or straight leg raise (L) Comment: There is minimal to mild left-sided paraspinal tenderness palpation to the lower lumbar spine, no spinal tenderness to palpation to the cervical thoracic or lumbar spine, no paraspinal tenderness palpation to the C-spine T-spine. Neurological Exam Neurological exam: Present alert, oriented X3 and other (There is 5 out of 5 strength in the bilateral lower and upper extremities, patient moves extremities to command, negative straight leg test bilaterally, no gross sensation deficit, no acute focal neurological deficit) Psychiatric Psychiatric exam: Present normal affect Skin Skin exam: Present warm and dry Medical Decision Making Medical Records Medical records reviewed: Yes I reviewed the patient's medical records. Screening: Per USPSTF and CDC recommendations, given the prevalence of disease in our region, it is our hospital?s policy to screen for HIV and viral Hepatitis for all patients aged 18 and over and those with ongoing risk factors. Jack Inquiry Pt receiving controlled substance: No Jack was queried for this patient: No Vital Signs: 11/28/24 15:51 Temperature 98.4 F Temperature Source Oral Pulse Rate [Right Radial] 96 H Respiratory Rate 15 Blood Pressure [Right Arm] 165/125 H Blood Pressure Mean [Right Arm] 138 Blood Pressure Source [Right Arm] Automatic Cuff Blood Pressure Position [Right Arm] Sitting 02 Sat by Pulse Oximetry 98 Oxygen Delivery Method Room Air Orders (Tests/Meds): ORDERS Category Date Time Status HIV Combo Stat Lab 11/28/24 16:02 Ordered Hepatitis C Ab Qual. W/ RFX Stat Lab 11/28/24 16:02 Ordered Medical Decision Narrative: 34-year-old female presents the emergency department with lower lumbar spine pain, differential diagnosis include but not limited to, acute lumbar sacral strain, degenerative disc disease of the lumbar spine, osteoarthritis of lumbar spine, lumbar spondylosis among others. I discussed this patient's case with the attending physician I had a long discussion with the patient and family the bedside, patient has a benign lumbar spine exam, she is neurologically intact/neurovascular intact, with no radiculopathy or red flag signs or symptoms, offered advanced imaging studies to the patient at the bedside, however I do not think this will global climate change researcher as patient does not have any midline spinal tenderness, no pain to palpation over the ribs or chest wall, she is hemodynamically stable in the emergency department. Shared decision-making was utilized. Will not obtain laboratory studies or imaging studies, with patient's benign history/benign physical exam, she was already prescribed muscle relaxer as well as lidocaine patch, I recommend anti-inflammatory medications as needed for symptomatic relief, heat and ice, recommend no bending lifting twisting until symptomatology is resolved. Patient was given strict ED return precautions. Patient voiced understanding and agreement with the current treatment plan/discharge plan. Critical Care Critical Care Time Critical Care Time: No
[2024-11-28 16:00] VITALS: BP 161/111; PULSE 81; O2SAT 99
[2024-11-28 16:20] VITALS: BP 161/111; PULSE 84; RESP 15; TEMP 36.7; O2SAT 98
== END 2024-11-28 16:23 | disposition home or self-care (01) ==
PROVIDERS: Emergency Provider Student in an Organized Health Care Education/Training Program; PCP Family Medicine
DX: S39.012A Strain of muscle, fascia and tendon of lower back, initial encounter (principal); I10 Essential (primary) hypertension
CPT/HCPCS: 99282

== ENCOUNTER 2024-11-29 06:00 | Emergency (ER) | payer MEDICAID, SELFPAY ==
--- NOTE | 2024-11-29 06:07 | CT_ITS ---
PROCEDURE INFORMATION: Exam: CT Abdomen And Pelvis With Contrast Exam date and time: 11/29/2024 7:53 AM Age: 34 years old Clinical indication: Abdominal pain; Flank; Left; Additional info: Left flank pain x 4 days, no known trauma, unable to lay flat or twist. TECHNIQUE: Imaging protocol: Computed tomography of the abdomen and pelvis with contrast. Radiation optimization: All CT scans at this facility use at least one of these dose optimization techniques: automated exposure control; mA and/or kV adjustment per patient size (includes targeted exams where dose is matched to clinical indication); or iterative reconstruction. Contrast material: ISOVUE; Contrast volume: 75 ml; Contrast route: IV; COMPARISON: CT ABDOMEN PELVIS W CON 09/30/2023 7:36 AM FINDINGS: Lungs: There are scattered lower lobe granulomas Liver: Normal. No mass. Gallbladder and biliary ducts: There has been a cholecystectomy. Pancreas: Normal. No ductal dilation. Spleen: Normal. No splenomegaly. Adrenal glands: Normal. No mass. Kidneys and ureters: Normal. No hydronephrosis. Stomach and bowel: Unremarkable. No obstruction. No mucosal thickening. Appendix: No evidence of appendicitis. Intraperitoneal space: Unremarkable. No free air. No significant fluid collection. Vasculature: Scattered pelvic phleboliths noted Lymph nodes: Unremarkable. No enlarged lymph nodes. Urinary bladder: Unremarkable as visualized. Reproductive: There is a 2.1 cm left ovarian cyst dominant follicle Bones/joints: Unremarkable. No acute fracture. Soft tissues: Unremarkable. IMPRESSION: No acute abnormality in the abdomen or pelvis
--- NOTE | 2024-11-29 06:07 | HMH.EDGENADL ---
Discharge Plan Disposition Patient Disposition: Home, Self-Care Prescriptions Prescriptions: New methocarbamol 1,000 mg tablet 1,000 mg PO Q8H Qty: 14 0RF No Action methocarbamol 500 mg tablet 500 mg PO TID PRN (Reason: muscle spasm) Qty: 20 0RF lidocaine 5 % adhesive patch,medicated 1 patch topical DAILY PRN (Reason: pain) Qty: 15 0RF Rx Instructions: leave on most painful area for up to 12 hrs then remove for 12 hours Referrals Follow up/Referrals: Casie Greco APRN [Primary Care Provider, Family Practice] - See instructions Activity Restrictions/Add. Instructions Additional Instructions/Restrictions: Follow-up with your primary care provider for further management. Heat gentle stretching massage and [id number] anti-inflammatory medications including ibuprofen and Tylenol can be helpful. Take either your Flexeril or the Robaxin prescribed today as needed for severe pain. A Physical therapy referral that can be made by your primary care provider can also be beneficial. Return to the emergency department for new or worsening symptoms. Clinical Impressions Clinical Impression: Muscle spasm Instructions Patient Instructions: DI for Back Spasm Print Language Print Language: Montenegrin Discharge ED Provider: Ema Lopez General Adult HPI <Ck Carter MD - Last Filed: 11/29/24 06:54> General Chief complaint: Back Pain/Injury Stated complaint: pain in left side Time Seen by Provider: 11/29/24 06:03 History of Present Illness HPI narrative: 34-year-old female with history of of tubal ligation, hypertension, PCOS presents for left flank pain. She reports that it has been present for the last few days and has been worsening. Is now associated with nausea. She denies any urinary symptoms. Denies any history of kidney stone. She reports it feels like she has pulled a muscle and it is worse with any movement. No fever at home. Related Data Previous Rx's ?Medication ?Instructions ?Recorded lidocaine 5 % topical patch 1 patch topical DAILY PRN pain #15 11/28/24 ea methocarbamol 500 mg tablet 500 mg PO TID PRN muscle spasm #20 11/28/24 tabs methocarbamol 1,000 mg tablet 1,000 mg PO Q8H #14 tabs 11/29/24 Allergies Allergy/AdvReac Type Severity Reaction Status Date / Time No Known Allergies Allergy Verified 11/28/24 13:34 PFS <Ck Carter MD - Last Filed: 11/29/24 06:54> [facility] Disclaimer: The information contained in this section may have been updated after the patient was seen, as this information can be updated by other users. Medical History PCOS (polycystic ovarian syndrome) Cholelithiasis Cholecystitis with cholelithiasis Pharyngitis due to Streptococcus species Obesity Vitamin D deficiency (~07/01/17) Swelling of both hands Tingling in extremities Depression Hypertension Blood pressure today was 120/70. Hives Vitiligo Amin's palsy Surgical History History of bilateral salpingectomy History of cholecystectomy History of section Family History Other No significant family history Social History Smoking Status: Never smoker second hand exposure: No alcohol intake: never substance use type: denies use current occupational status: employed Travel in the last 8 weeks?: None household members: children housing: apartment caffeine: Yes Have you lived/traveled outside [place] in past 30 days?: No Contact w/someone who lives/traveled outside US past 30 days?: No Exposure to someone with infectious disease in past 14 days?: No Do you have a fever (greater than 100.4 F or 38 C)?: No Have you tested positive for COVID-19?: No Exposed to someone with COVID-19 in past 14 days?: No Do you have a sore throat?: No Do you have a cough?: No Do you have any weakness?: No Do you have any diarrhea?: No Are you experiencing any unusual bleeding?: No Do you have any muscle aches/pain?: Yes Do you have any abdominal pain?: No Are you experiencing loss of taste or smell?: No Other Medical History Have you received the Flu Vaccine for this season: No Have you received the Pneumonia Vaccine: No <Ck Carter MD - Last Filed: 11/29/24 06:54> ROS Obtained: Yes All systems reviewed & no additional complaints except as documented Physical Exam <Ck Carter MD - Last Filed: 11/29/24 06:54> General General appearance: alert Comment: Uncomfortable appearing Head Head exam: atraumatic and normocephalic Eye Eye exam: Present normal appearance, PERRL and EOMI ENT ENT exam: Present normal oropharynx and normal external ear exam Neck Neck exam: Present normal inspection and full ROM Chest Chest inspection: Present normal inspection and symmetric chest wall rise; Absent tenderness Respiratory Respiratory exam: Present normal lung sounds bilaterally; Absent respiratory distress Cardiovascular Cardiovascular exam: Present regular rate and normal rhythm Abdominal Exam Abdominal exam: Present soft; Absent distention, tenderness or guarding Extremities Exam Extremities exam: Present normal inspection; Absent edema or joint swelling Back Exam Back exam: Present normal inspection and CVA tenderness (L) Neurological Exam Neurological exam: Present alert and oriented X3; Absent motor sensory deficit Psychiatric Psychiatric exam: Present normal affect and normal mood Skin Skin exam: Present warm, dry and normal color Lymphatic Lymphatic Findings: no adenopathy Medical Decision Making <Ck Carter MD - Last Filed: 11/29/24 06:54> Medical Records Medical records reviewed: Yes I reviewed the patient's medical records. Screening: Per USPSTF and CDC recommendations, given the prevalence of disease in our region, it is our hospital?s policy to screen for HIV and viral Hepatitis for all patients aged 18 and over and those with ongoing risk factors. Jack Inquiry Pt receiving controlled substance: No Jack was queried for this patient: No Vital Signs: 11/29/24 06:08 11/29/24 06:14 11/29/24 07:30 Temperature 97.8 F 97.8 F Temperature Source Tympanic Tympanic Pulse Rate 82 61 Pulse Rate [Left] 81 Respiratory Rate 16 16 18 Blood Pressure 139/107 H 144/109 H Blood Pressure [Right Arm] 176/128 H Blood Pressure Mean 120 Blood Pressure Mean [Right Arm] 144 Blood Pressure Source Automatic Cuff Blood Pressure Source [Right Arm] Manual Cuff/ Doppler Blood Pressure Position Sitting Blood Pressure Position [Right Arm] Sitting 02 Sat by Pulse Oximetry 100 100 99 Oxygen Delivery Method Room Air Room Air Room Air Lab Data Lab results reviewed: Yes I reviewed the patient's lab results. Lab Results 11/29/24 05:55: Serum HCG, Qual Negative 11/29/24 06:08: Urine Color Yellow, Urine Appearance Clear, Urine pH 6.0, Ur Specific [place] >= 1.030, Urine Protein Negative, Urine Glucose (UA) Negative, Urine Ketones Negative, Urine Blood Negative, Urine Nitrate Negative, Urine Bilirubin Negative, Urine Urobilinogen 0.2, Ur Leukocyte Esterase Negative 11/29/24 06:18: WBC 9.5, RBC 4.67, Hgb 13.8, Hct 41.9, MCV 89.7, MCH 29.6, MCHC 32.9, RDW 12.5, Plt Count 220, MPV 10.4, Neut % (Auto) 50.1, Lymph % (Auto) 43.2, Cedar % (Auto) 4.7, Eos % (Auto) 1.3, Baso % (Auto) 0.4, Neut # (Auto) 4.8, Lymph # (Auto) 4.1, Cedar # (Auto) 0.5, Eos # (Auto) 0.1, Baso # (Auto) 0.0, D-Dimer 0.73 H, Sodium 142, Potassium 4.2, Chloride 110 H, Carbon Dioxide 24, Anion Gap 12.2, BUN 20 H, Creatinine 0.80, Estimated Creat Clear 142, Estimated GFR 83, Est GFR ( Amer) 101, Glucose 94, Calcium 9.3, Total Bilirubin 0.6, AST 26, ALT 20, Alkaline Phosphatase 39, Total Protein 7.4, Albumin 4.5, Globulin 2.9, Albumin/Globulin Ratio 1.6 11/29/24 06:18 11/29/24 06:18 Orders (Tests/Meds): ED MEDICATIONS Generic Name Dose Route Start Last Admin Trade Name Freq PRN Reason Stop Dose Admin Sodium Chloride 10 ml 11/29/24 07:51 11/29/24 07:56 Sodium Chloride 0.9% 10ml Syr (Rad Only) IV 12/29/24 07:50 10 ml NEEDED PRN Administration Maintain IV Site Discontinued Medications Generic Name Dose Route Start Last Admin Trade Name Freq PRN Reason Stop Dose Admin Acetaminophen 1,000 mg 11/29/24 06:07 11/29/24 06:18 Acetaminophen 500mg Tab PO 11/29/24 06:08 1,000 mg ONCE ONE Administration Iopamidol 75 ml 11/29/24 07:51 11/29/24 07:53 Iopamidol-370 (76%);100ml Bottle IV 11/29/24 07:52 75 ml ONCE ONE Administration Ketorolac Tromethamine 30 mg 11/29/24 06:07 11/29/24 06:18 Ketorolac 30mg/Ml Vial IV 11/29/24 06:08 30 mg ONCE ONE Administration Lidocaine 1 each 11/29/24 07:04 11/29/24 07:19 Lidocaine 5% Transdermal Patch TD 11/29/24 07:05 1 each ONCE ONE Administration Methocarbamol 1,000 mg 11/29/24 07:04 11/29/24 07:18 Methocarbamol 500mg Tablet PO 11/29/24 07:05 1,000 mg ONCE ONE Administration Morphine Sulfate 4 mg 11/29/24 06:07 11/29/24 06:18 Morphine 4mg/Ml Syringe IV 11/29/24 06:08 4 mg ONCE ONE Administration Morphine Sulfate 4 mg 11/29/24 08:30 11/29/24 08:32 Morphine 4mg/Ml Syringe IV 11/29/24 08:31 4 mg ONCE ONE Administration Ondansetron HCl 4 mg 11/29/24 06:07 11/29/24 06:18 Ondansetron 4mg/2ml Vial IV 11/29/24 06:08 4 mg ONCE ONE Administration ORDERS Category Date Time Status CT abdomen pelvis w con Stat Cat Scan 11/29/24 06:07 Completed CBC w/Auto Diff [Complete Blood Count Auto Diff] Stat Lab 11/29/24 06:18 Completed CMP [Comprehensive Metabolic Panel] Stat Lab 11/29/24 06:18 Completed D-Dimer Stat Lab 11/29/24 06:18 Completed HCG Qualitative, Serum Stat Lab 11/29/24 05:55 Completed UA [Urinalysis and Microscopic] Stat Lab 11/29/24 06:08 Results Medical Decision Narrative: 34-year-old female with history of hypertension, PCOS, tubal ligation presents for left flank pain for the last 3 days. History was obtained via interactive discussion with patient. On arrival, patient is [afebrile, hemodynamically stable, satting appropriately, alert, oriented x4, GCS 15], moving all extremities spontaneously. Full physical exam performed and significant for left CVA tenderness Differential includes but is not limited to obstructive ureterolithiasis, pyelonephritis, musculoskeletal pain, rib fracture. Patient was given morphine, Zofran, Tylenol, Toradol for symptomatic management and correction of underlying abnormalities. Workup initiated including basic labs, urinalysis, CT abdomen and pelvis with IV contrast.. At this time care handed off to oncoming physician. <Ema Lopez MD - Last Filed: 11/29/24 08:54> Vital Signs: 11/29/24 06:08 11/29/24 06:14 11/29/24 07:30 Temperature 97.8 F 97.8 F Temperature Source Tympanic Tympanic Pulse Rate 82 61 Pulse Rate [Left] 81 Respiratory Rate 16 16 18 Blood Pressure 139/107 H 144/109 H Blood Pressure [Right Arm] 176/128 H Blood Pressure Mean 120 Blood Pressure Mean [Right Arm] 144 Blood Pressure Source Automatic Cuff Blood Pressure Source [Right Arm] Manual Cuff/ Doppler Blood Pressure Position Sitting Blood Pressure Position [Right Arm] Sitting 02 Sat by Pulse Oximetry 100 100 99 Oxygen Delivery Method Room Air Room Air Room Air Lab Data Lab Results 11/29/24 05:55: Serum HCG, Qual Negative 11/29/24 06:08: Urine Color Yellow, Urine Appearance Clear, Urine pH 6.0, Ur Specific [place] >= 1.030, Urine Protein Negative, Urine Glucose (UA) Negative, Urine Ketones Negative, Urine Blood Negative, Urine Nitrate Negative, Urine Bilirubin Negative, Urine Urobilinogen 0.2, Ur Leukocyte Esterase Negative 11/29/24 06:18: WBC 9.5, RBC 4.67, Hgb 13.8, Hct 41.9, MCV 89.7, MCH 29.6, MCHC 32.9, RDW 12.5, Plt Count 220, MPV 10.4, Neut % (Auto) 50.1, Lymph % (Auto) 43.2, Cedar % (Auto) 4.7, Eos % (Auto) 1.3, Baso % (Auto) 0.4, Neut # (Auto) 4.8, Lymph # (Auto) 4.1, [place] # (Auto) 0.5, Eos # (Auto) 0.1, Baso # (Auto) 0.0, D-Dimer 0.73 H, Sodium 142, Potassium 4.2, Chloride 110 H, Carbon Dioxide 24, Anion Gap 12.2, BUN 20 H, Creatinine 0.80, Estimated Creat Clear 142, Estimated GFR 83, Est GFR ( Amer) 101, Glucose 94, Calcium 9.3, Total Bilirubin 0.6, AST 26, ALT 20, Alkaline Phosphatase 39, Total Protein 7.4, Albumin 4.5, Globulin 2.9, Albumin/Globulin Ratio 1.6 Orders (Tests/Meds): ED MEDICATIONS Generic Name Dose Route Start Last Admin Trade Name Geoq PRN Reason Stop Dose Admin Sodium Chloride 10 ml 11/29/24 07:51 11/29/24 07:56 Sodium Chloride 0.9% 10ml Syr (Rad Only) IV 12/29/24 07:50 10 ml NEEDED PRN Administration Maintain IV Site Discontinued Medications Generic Name Dose Route Start Last Admin Trade Name Geoq PRN Reason Stop Dose Admin Acetaminophen 1,000 mg 11/29/24 06:07 11/29/24 06:18 Acetaminophen 500mg Tab PO 11/29/24 06:08 1,000 mg ONCE ONE Administration Iopamidol 75 ml 11/29/24 07:51 11/29/24 07:53 Iopamidol-370 (76%);100ml Bottle IV 11/29/24 07:52 75 ml ONCE ONE Administration Ketorolac Tromethamine 30 mg 11/29/24 06:07 11/29/24 06:18 Ketorolac 30mg/Ml Vial IV 11/29/24 06:08 30 mg ONCE ONE Administration Lidocaine 1 each 11/29/24 07:04 11/29/24 07:19 Lidocaine 5% Transdermal Patch TD 11/29/24 07:05 1 each ONCE ONE Administration Methocarbamol 1,000 mg 11/29/24 07:04 11/29/24 07:18 Methocarbamol 500mg Tablet PO 11/29/24 07:05 1,000 mg ONCE ONE Administration Morphine Sulfate 4 mg 11/29/24 06:07 11/29/24 06:18 Morphine 4mg/Ml Syringe IV 11/29/24 06:08 4 mg ONCE ONE Administration Morphine Sulfate 4 mg 11/29/24 08:30 11/29/24 08:32 Morphine 4mg/Ml Syringe IV 11/29/24 08:31 4 mg ONCE ONE Administration Ondansetron HCl 4 mg 11/29/24 06:07 11/29/24 06:18 Ondansetron 4mg/2ml Vial IV 11/29/24 06:08 4 mg ONCE ONE Administration ORDERS Category Date Time Status CT abdomen pelvis w con Stat Cat Scan 11/29/24 06:07 Completed CBC w/Auto Diff [Complete Blood Count Auto Diff] Stat Lab 11/29/24 06:18 Completed CMP [Comprehensive Metabolic Panel] Stat Lab 11/29/24 06:18 Completed D-Dimer Stat Lab 11/29/24 06:18 Completed HCG Qualitative, Serum Stat Lab 11/29/24 05:55 Completed UA [Urinalysis and Microscopic] Stat Lab 11/29/24 06:08 Results Medical Decision Narrative: 34-year-old female with history of hypertension, PCOS, tubal ligation presents for left flank pain for the last 3 days. History was obtained via interactive discussion with patient. On arrival, patient is afebrile, hemodynamically stable, satting appropriately, alert, oriented x4, GCS 15, moving all extremities spontaneously. Full physical exam performed and significant for left CVA tenderness Differential includes but is not limited to obstructive ureterolithiasis, pyelonephritis, musculoskeletal pain, rib fracture. Patient was given morphine, Zofran, Tylenol, Toradol for symptomatic management and correction of underlying abnormalities. Workup initiated including basic labs, urinalysis, CT abdomen and pelvis with IV contrast.. At this time care handed off to oncoming physician. At 7 AM care assumed by Dr. Carter. Symptoms are most consistent with musculoskeletal strain with palpable muscle spasm of the latissimus dorsi. D-dimer elevated but PE excluded by YEARS criteria. UA without pyuria or hematuria. CTAP with calcifications in pelvis. Per radiology phleboliths, likely incidental finding and non contributory to patients symptoms. On reevaluation pt's pain is stable and agreeable with discharge and outpt follow up with PCP for musculoskeletal strain. Procedures <Ck Carter MD - Last Filed: 11/29/24 06:54> Risk/Benefits of Procedure(s) Were Explained: Yes Critical Care <Ck Carter MD - Last Filed: 11/29/24 06:54> Critical Care Time Critical Care Time: No
[2024-11-29 06:08] VITALS: BP 176/128; PULSE 81; RESP 16; TEMP 36.6; O2SAT 100; BMI 33.7
--- OUTSIDE RECORDS SUMMARY | 2024-11-29 06:08 | XMS_ITS | Clinical Summary ---
Author Organization [facility] Address [address] [place] [address] Care Team Providers Care Glue Clamp Operator Name Role Phone Provider, No Known Primary [...] age to complete this topic Care Teams Glue Clamp Operator Relationship Specialty Start Date End Date Provider, [place] [address] PCP - General 01/27/15
[2024-11-29 06:14] VITALS: BP 139/107; PULSE 82; RESP 16; TEMP 36.6; O2SAT 100
[2024-11-29] MEDS: MORPHINE 4MG/ML SYRINGE 4 MG IV ×2 (06:18→08:32)
[2024-11-29] MEDS: ACETAMINOPHEN 500MG TAB 1000 MG PO (06:18)
[2024-11-29] MEDS: KETOROLAC 30MG/ML VIAL 30 MG IV (06:18)
[2024-11-29] MEDS: ONDANSETRON 4MG/2ML VIAL 4 MG IV (06:18)
[2024-11-29 06:33] LABS: Microscopic, Urine URINE MICROSCOPIC (MICROSCOPIC)
[2024-11-29 06:43] LABS: Hematocrit 41.9 % (37.0-47.0); Hemoglobin 13.8 g/dL (12.2-16.2); Immature Granulocytes % 0.3 %; Mean Corpuscular HGB Conc 32.9 g/dL (31.8-35.4); Mean Corpuscular Hemoglobin 29.6 pg (27.0-31.2); Mean Corpuscular Volume 89.7 fl (81-99); Nucleated Red Blood Cells % 0 %; Platelet Count 220 K/mm3 (142-424); Red Blood Count 4.67 M/mm3 (4.20-5.40); Red Cell Distribution Width-SD 40.6 fL; White Blood Count 9.5 K/mm3 (4.8-10.8)
[2024-11-29 06:50] LABS: Alanine Aminotransferase 20 U/L (12-78); Albumin Level 4.5 g/dl (3.5-5.0); Albumin/Globulin Ratio 1.6 (1.1-1.8); Alkaline Phosphatase 39 U/L (38-126); Anion Gap 12.2 mEq/L (5-15); Aspartate Amino Transferase 26 U/L (14-36); Bilirubin,Total 0.6 mg/dl (0.2-1.3); Blood Urea Nitrogen 20 mg/dl (7-17); Calcium 9.3 mg/dl (8.4-10.2); Carbon Dioxide 24 mmol/L (22.0-30.0); Chloride 110 mmol/L (98-107); Creatinine Clearance Estimated 142 mL/min (50-200); Creatinine,Serum 0.80 mg/dl (0.52-1.04); Estimated Glomerular Filt Rate 83 ml/min (>60); GFR (African American) 101 ML/MIN (>60); Globulin 2.9 g/dL (1.3-3.2); Glucose 94 mg/dl (74-100); Potassium 4.2 mmoL/L (3.5-5.1); Sodium 142 mmol/L (136-145); Total Protein,Serum 7.4 g/dl (6.3-8.2)
[2024-11-29 06:55] LABS: D-Dimer 0.73 ug/mL (0.0-0.5)
[2024-11-29] MEDS: METHOCARBAMOL 500MG TABLET 1000 MG PO (07:18)
[2024-11-29] MEDS: LIDOCAINE 5% TRANSDERMAL PATCH 1 EACH TD (07:19)
[2024-11-29 07:30] VITALS: BP 144/109; PULSE 61; RESP 18; O2SAT 99
[2024-11-29 07:36] LABS: Bilirubin,Urine Negative (Negative); Color,Urine YELLOW (Yellow); Glucose,Urine (UA) Negative (Negative); Ketones,Urine Negative (Negative); Leukocyte Esterase,Urine Negative (Negative); PH,Urine 6.0 (5.0-8.5); Protein,Urine Negative (Negative); Specific Gravity, Urine >= 1.030 (1.005-1.030); Urobilinogen,Urine 0.2 EU/dl (0.2)
[2024-11-29 07:40] LABS: HCG Qualitative, Serum Negative (Negative)
--- NOTE | 2024-11-29 07:46 | PC.NURSE ---
pt transported to ct via wheelchair
[2024-11-29] MEDS: IOPAMIDOL-370 (76%);100ML BOTTLE 75 ML IV (07:53)
[2024-11-29] MEDS: SODIUM CHLORIDE 0.9% 10ML SYR (RAD ONLY) 10 ML IV (07:56)
[2024-11-29 09:04] VITALS: BP 135/75; PULSE 85; RESP 16; TEMP 36.7; O2SAT 98
[2024-11-29 10:49] LABS: Bacteria,Urine Trace /lpf; Calcium Oxalate Crystals,Urine Trace /lpf; WBC,Urine Occasional #/hpf (0-3)
== END 2024-11-29 09:05 | disposition home or self-care (01) ==
PROVIDERS: Emergency Medicine; Emergency Provider Student in an Organized Health Care Education/Training Program; PCP Family Medicine
DX: S29.012A Strain of muscle and tendon of back wall of thorax, initial encounter (principal); M62.838 Other muscle spasm; X58.XXXA Exposure to other specified factors, initial encounter
CPT/HCPCS: 36415; 74177; 80053; 81001; 84703; 85025; 85378; 96374; 99284; J1885; J2270; J2405; Q9967

== ENCOUNTER 2024-11-30 08:33 | Emergency (ER) | payer MEDICAID, SELFPAY ==
[2024-11-30 08:39] VITALS: BP 143/113; PULSE 82; RESP 19; TEMP 36.6; O2SAT 99; BMI 30.9
--- NOTE | 2024-11-30 08:39 | HMH.EDGENADL ---
Discharge Plan Disposition Patient Disposition: Home, Self-Care Prescriptions Prescriptions: New oxycodone 5 mg tablet 5 mg PO Q6H PRN (Reason: pain) Qty: 4 0RF No Action methocarbamol 500 mg tablet 500 mg PO TID PRN (Reason: muscle spasm) Qty: 20 0RF lidocaine 5 % adhesive patch,medicated 1 patch topical DAILY PRN (Reason: pain) Qty: 15 0RF Rx Instructions: leave on most painful area for up to 12 hrs then remove for 12 hours methocarbamol 1,000 mg tablet 1,000 mg PO Q8H Qty: 14 0RF amoxicillin 500 mg capsule 500 mg PO Q8H Patient Comments: TAKE 1 CAPSULE BY MOUTH EVERY 8 HOURS UNTIL ALL TAKEN ibuprofen 800 mg tablet 800 mg PO Q6HP PRN (Reason: Pain) Patient Comments: TAKE 1 TABLET BY MOUTH EVERY 6 TO 8 HOURS NEEDED FOR PAIN Referrals Follow up/Referrals: Casie Greco APRN [Primary Care Provider, Family Practice] - See instructions Ana Maria Darnell MD [Physician, Pulmonology] - See instructions Activity Restrictions/Add. Instructions Additional Instructions/Restrictions: Your CT scan today showed few scattered lung nodules in the right lower lung but no other significant findings. This is unlikely to be the source of your symptoms. I am referring you to our pulmonoligst for follow up. Continue taking the Tylenol, ibuprofen and Robaxin and lidocaine patches as needed. It is imperative that you follow-up with your primary care doctor tomorrow for close follow-up. I will send you with a short course of oxycodone to help with pain for today. You can take MiraLAX to help avoid constipation. If you develop any new or worsening symptoms, or if you become concerned for your health for any reason, return to the emergency department for evaluation Clinical Impressions Clinical Impression: Acute left flank pain, Incidental lung nodule Print Language Print Language: Yakut Discharge ED Provider: Natan Macias Adult HPI General Chief complaint: PAIN Stated complaint: left side rib pain Time Seen by Provider: 11/30/24 08:38 History of Present Illness HPI narrative: Erica Frazier is a 34y female with a history of PCOS, obesity who presents to the emergency department for complaints of left-sided flank/chest pain. Patient states that on Saturday this past week, she was being lifted by a family member in felt a crack/pop in her left flank and had pain in this area. She states that pain is now constant and preventing her from sleeping. She does state that she feels like she has worsening pain with taking a deep breath. She has been seen in the emergency department several times for this complaint was told there was muscle strains been taking Robaxin, Tylenol and ibuprofen without relief of her symptoms. She states that is keeping her from working. She tried morphine in the emergency department but states that she vomited all day following that medication. She denies any cough or fever. Related Data Home Medications ?Medication ?Instructions ?Recorded ?Confirmed amoxicillin 500 mg capsule 500 mg PO Q8H 11/30/24 11/30/24 ibuprofen 800 mg tablet 800 mg PO Q6HP PRN Pain 11/30/24 11/30/24 Previous Rx's ?Medication ?Instructions ?Recorded lidocaine 5 % topical patch 1 patch topical DAILY PRN pain #15 11/28/24 ea methocarbamol 500 mg tablet 500 mg PO TID PRN muscle spasm #20 11/28/24 tabs methocarbamol 1,000 mg tablet 1,000 mg PO Q8H #14 tabs 11/29/24 oxycodone 5 mg tablet 5 mg PO Q6H PRN pain #4 tabs 11/30/24 Allergies Allergy/AdvReac Type Severity Reaction Status Date / Time No Known Allergies Allergy Verified 11/30/24 08:37 [facility] Disclaimer: The information contained in this section may have been updated after the patient was seen, as this information can be updated by other users. Medical History PCOS (polycystic ovarian syndrome) Cholelithiasis Cholecystitis with cholelithiasis Pharyngitis due to Streptococcus species Obesity Vitamin D deficiency (~07/01/17) Swelling of both hands Tingling in extremities Depression Hypertension Blood pressure today was 120/70. Hives Vitiligo Amin's palsy Surgical History History of bilateral salpingectomy History of cholecystectomy History of section Family History Other No significant family history Social History Smoking Status: Never smoker second hand exposure: No alcohol intake: never substance use type: denies use current occupational status: employed Travel in the last 8 weeks?: None household members: children housing: apartment caffeine: Yes Have you lived/traveled outside US in past 30 days?: No Contact w/someone who lives/traveled outside US past 30 days?: No Exposure to someone with infectious disease in past 14 days?: No Do you have a fever (greater than 100.4 F or 38 C)?: No Have you tested positive for COVID-19?: No Exposed to someone with COVID-19 in past 14 days?: No Do you have a sore throat?: No Do you have a cough?: No Do you have any weakness?: No Do you have any diarrhea?: No Are you experiencing any unusual bleeding?: No Do you have any muscle aches/pain?: No Do you have any abdominal pain?: No Are you experiencing loss of taste or smell?: No Other Medical History Have you received the Flu Vaccine for this season: No Have you received the Pneumonia Vaccine: No ROS Obtained: Yes Systems reviewed as appropriate & no additional complaints except as documented Physical Exam General General appearance: alert Comment: Non-toxic, appears uncomfortable Head Head exam: atraumatic Eye Eye exam: Present normal appearance ENT ENT exam: Present normal external ear exam Neck Neck exam: Present full ROM Chest Chest inspection: Present symmetric chest wall rise; Absent tenderness Respiratory Respiratory exam: Present normal lung sounds bilaterally; Absent respiratory distress, wheezes or stridor Cardiovascular Cardiovascular exam: Present regular rate and normal rhythm Abdominal Exam Abdominal exam: Present soft; Absent tenderness or guarding Extremities Exam Extremities exam: Present normal inspection Back Exam Back exam: Present normal inspection Neurological Exam Neurological exam: Present alert and oriented X3 Psychiatric Psychiatric exam: Present normal affect Skin Skin exam: Present warm and dry Medical Decision Making Medical Records Screening: Per USPSTF and CDC recommendations, given the prevalence of disease in our region, it is our hospital?s policy to screen for HIV and viral Hepatitis for all patients aged 18 and over and those with ongoing risk factors. Jack Inquiry Pt receiving controlled substance: Yes Jack was queried for this patient: Yes Risks and benefits of using a controlled substance: were discussed with pt by me Vital Signs: 11/30/24 08:39 11/30/24 08:58 11/30/24 10:00 Temperature 97.9 F Temperature Source Oral Pulse Rate 81 58 L Pulse Rate [Apical] 82 Respiratory Rate 19 17 Blood Pressure 155/105 H 162/108 H Blood Pressure [Right Arm] 143/113 H Blood Pressure Mean [Right Arm] 123 Blood Pressure Source [Right Arm] Automatic Cuff Blood Pressure Position [Right Arm] Sitting 02 Sat by Pulse Oximetry 99 97 100 Oxygen Delivery Method Room Air Room Air Lab Data Lab Results 11/30/24 08:38: Urine HCG, Qual Negative 11/30/24 08:50: WBC 7.6, RBC 4.65, Hgb 14.2, Hct 40.6, MCV 87.3, MCH 30.5, MCHC 35.0, RDW 12.1, Plt Count 228, MPV 10.4, Neut % (Auto) 67.8, Lymph % (Auto) 26.3, [place] % (Auto) 4.1, Eos % (Auto) 1.1, Baso % (Auto) 0.3, Neut # (Auto) 5.1, Lymph # (Auto) 2.0, [place] # (Auto) 0.3, Eos # (Auto) 0.1, Baso # (Auto) 0.0, Sodium 139, Potassium 4.0, Chloride 108 H, Carbon Dioxide 23, Anion Gap 12.0, BUN 22 H, Creatinine 0.70, Estimated Creat Clear 149, Estimated GFR 97, Est GFR ( Amer) 117, Glucose 106 H, Calcium 9.5, Total Bilirubin 1.2, AST 29, ALT 27 D, Alkaline Phosphatase 43, Troponin I < 0.01, C-Reactive Protein 1.0, Total Protein 7.6, Albumin 4.7, Globulin 2.9, Albumin/Globulin Ratio 1.6, Lipase 44, Serum HCG, Qual Negative 11/30/24 08:50 11/30/24 08:50 Orders (Tests/Meds): ED MEDICATIONS Discontinued Medications Generic Name Dose Route Start Last Admin Trade Name Freq PRN Reason Stop Dose Admin Acetaminophen 1,000 mg 11/30/24 08:52 11/30/24 09:07 Acetaminophen 500mg Tab PO 11/30/24 08:53 1,000 mg ONCE ONE Administration Iopamidol 80 ml 11/30/24 09:46 11/30/24 09:46 Iopamidol-370 (76%);100ml Bottle IV 11/30/24 09:47 80 ml ONCE ONE Administration Ketorolac Tromethamine 15 mg 11/30/24 08:52 11/30/24 09:07 Ketorolac 15mg/Ml Vial IV 11/30/24 08:53 15 mg ONCE ONE Administration Lidocaine 1 each 11/30/24 08:52 11/30/24 09:07 Lidocaine 5% Transdermal Patch TD 11/30/24 08:53 1 each ONCE ONE Administration Oxycodone HCl 5 mg 11/30/24 09:56 11/30/24 10:01 Oxycodone 5mg Immediate Release Tablet PO 11/30/24 09:57 5 mg ONCE ONE Administration Sodium Chloride 10 ml 11/30/24 09:46 11/30/24 09:46 Sodium Chloride 0.9% 10ml Syr (Rad Only) IV 11/30/24 09:47 10 ml ONCE ONE Administration Sodium Chloride 50 ml 11/30/24 09:46 11/30/24 09:46 0.9 % Sodium Chloride 50 Ml Vial IV 11/30/24 09:47 50 ml ONCE ONE Administration ORDERS Category Date Time Status CT angio chest PE protocol Stat Cat Scan 11/30/24 08:52 Completed CBC w/Auto Diff [Complete Blood Count Auto Diff] Stat Lab 11/30/24 08:50 Completed CMP [Comprehensive Metabolic Panel] Stat Lab 11/30/24 08:50 Completed CRP [C-Reactive Protein] Stat Lab 11/30/24 08:50 Completed Lipase Stat Lab 11/30/24 08:50 Completed Serum [HCG Qualitative, Serum] Stat Lab 11/30/24 08:50 Completed Troponin I Q3H Lab 11/30/24 12:00 Ordered Troponin I Q3H Lab 11/30/24 15:00 Ordered Troponin I Stat Lab 11/30/24 08:50 Completed Urine , HCG Qual. Stat Lab 11/30/24 08:38 Completed EKG Request [ECG Request] Stat Y 11/30/24 08:52 Ordered ECG Data Tracing #1: I reviewed this ECG and interpreted as documented below: Normal sinus rhythm. No ST elevation or depression. QTc normal at 406 Medical Decision Narrative: Erica Frazier is a 34y female with a history of PCOS, obesity who presents to the emergency department for complaints of left-sided flank/chest pain. Patient states that on Saturday this past week, she was being lifted by a family member in felt a crack/pop in her left flank and had pain in this area. She states that pain is now constant and preventing her from sleeping. She does state that she feels like she has worsening pain with taking a deep breath. She has been seen in the emergency department several times for this complaint was told there was muscle strains been taking Robaxin, Tylenol and ibuprofen without relief of her symptoms. She states that is keeping her from working. She tried morphine in the emergency department but states that she vomited all day following that medication. She denies any cough or fever. On arrival, patient is hypertensive with blood pressure 143/113, heart rate within normal limits, afebrile, breathing comfortably on room air with oxygen saturation 99% SpO2. Physical exam, stated above, reveals an uncomfortable but nontoxic-appearing female in no distress. She has no tenderness over the left lower ribs and no deformity. No abdominal tenderness. Cardiopulmonary exam is unremarkable. Patient states that her last dose of ibuprofen was last night and she took Robaxin this morning. Differential diagnosis includes, but is not limited to: Pulmonary embolism, pleurisy, rib fracture, pulmonary contusion, pleural effusion, pneumonia, muscle strain, acute pancreatitis, ACS, among others. The most morbid conditions were considered and workup was based on these. Per chart review, this is the patient's third ER visit in 3 days. On 11/28/2024, patient was seen for lumbar strain presented to following day for continued pain. Patient underwent CT abdomen pelvis with contrast on 11/28 that showed no acute abnormality in the abdomen or pelvis. Patient was discharged with Robaxin. Patient was also noted to have a D-dimer of 0.73 but was negative per YEARS criteria. Workup in the emergency department included: EKG, troponin, CBC with differential, CMP, serum test, lipase, CRP, CTA pulmonary embolism protocol to evaluate for possible pulmonary embolism/rib fracture/pulmonary contusion as a source of patient's pleuritic chest pain in the setting of a mildly elevated D-dimer. Patient was treated with lidocaine patch, 50 mg IV Toradol and 1 g oral Tylenol. EKG without evidence of ischemia. See interpretation above. Patient's workup shows negative test, CBC unremarkable, CMP unremarkable, and troponin less than 0.01. Lipase normal at 44. Lab work unremarkable nonactionable. CT imaging interpreted by me personally. No evidence of pulmonary embolism, rib fracture. Patient has few scattered lung nodules in the right lung, however his felt that this is not contributing to her symptoms, which are located on the left side. Patient was administered 5 mg oxycodone for continued pain. Patient's workup is unremarkable today, still felt the patient symptomatology is best explained by musculoskeletal strain and will improve over time with symptomatic control. Due to severity of pain, will administer short course of oxycodone to go home with. Patient is going to follow-up with her primary care physician tomorrow. I instruct her to also continue taking Tylenol, ibuprofen, Robaxin and lidocaine patches if available. Return precautions were given. All questions were answered. She was then discharged from the emergency department in stable condition. Critical Care Critical Care Time Critical Care Time: No
--- OUTSIDE RECORDS SUMMARY | 2024-11-30 08:42 | XMS_ITS | Clinical Summary ---
Author Organization [facility] Address [address] [place] [address] Care Team Providers Care Car Rider Name Role Phone Provider, No Known Primary [...] age to complete this topic Care Teams Car Rider Relationship Specialty Start Date End Date Provider, [place] [address] PCP - General 01/27/15
--- NOTE | 2024-11-30 08:52 | CT_ITS ---
PROCEDURE INFORMATION: Exam: CTA Chest With Contrast Exam date and time: 11/30/2024 9:36 AM Age: 34 years old Clinical indication: Shortness of breath; Other: Left lower rib pain, pleuritic, SOA TECHNIQUE: Imaging protocol: Computed tomographic angiography of the chest with contrast. Exam focused on the arteries. 3D rendering (Not supervised by radiologist): MIP and/or 3D reconstructed images were created by the technologist. Radiation optimization: All CT scans at this facility use at least one of these dose optimization techniques: automated exposure control; mA and/or kV adjustment per patient size (includes targeted exams where dose is matched to clinical indication); or iterative reconstruction. Contrast material: ISOVUE; Contrast volume: 80 ml; Contrast route: INTRAVENOUS (IV); COMPARISON: CT CHEST WO CON 07/27/2021 1:46 PM FINDINGS: Pulmonary arteries: No PE. No evidence of cardiac strain. Aorta: Unremarkable. No aortic aneurysm. No aortic dissection. Lungs: Few scattered mixed calcified/noncalcified nodules in the right lower lobe are stable to mildly less conspicuous from the comparison, for example measuring 1.7 x 1.5 cm axial in the right lower lobe, previously 2.0 x 1.2 cm axial. No new or enlarging pulmonary nodule. Pleural spaces: Unremarkable. No pneumothorax. No pleural effusion. Heart: Normal heart size. No pericardial fluid. Lymph nodes: Calcified right hilar/subcarinal lymph nodes from prior granulomatous infection. No other mediastinal low hilar adenopathy. Gallbladder and biliary ducts: Status post cholecystectomy. Bones/joints: Unremarkable. No acute fracture. Soft tissues: Unremarkable. IMPRESSION: 1. New/more prominent mild subsegmental atelectasis in the medial right lower lobe. 2. Few scattered mixed calcified/noncalcified nodules in the right lower lobe are stable to mildly less conspicuous from the comparison, for example measuring 1.7 x 1.5 cm axial in the right lower lobe, previously 2.0 x 1.2 cm axial. No new or enlarging pulmonary nodule.
[2024-11-30 08:58] VITALS: BP 155/105; PULSE 81; RESP 17; O2SAT 97
--- NOTE | 2024-11-30 09:00 | ECG_ITS ---
APPROVED REPORT Exam: Resting ECG HR:70 bpm ECG Measurements Heart Rate 70 AXES AK 143 P 33 QRSd 86 QRS 58 QT 385 T 9 QTc 406 Conclusion SINUS RHYTHM NORMAL ECG UNCONFIRMED REPORT Normal sinus rhythm. No ST elevation or depression. Isolated T wave inversions in lead III that are nonspecific Electronically signed by : RUSLAN LUNA, 12/01/2024 15:37:48
[2024-11-30 09:05] LABS: Hematocrit 40.6 % (37.0-47.0); Hemoglobin 14.2 g/dL (12.2-16.2); Immature Granulocytes % 0.4 %; Mean Corpuscular HGB Conc 35.0 g/dL (31.8-35.4); Mean Corpuscular Hemoglobin 30.5 pg (27.0-31.2); Mean Corpuscular Volume 87.3 fl (81-99); Nucleated Red Blood Cells % 0 %; Platelet Count 228 K/mm3 (142-424); Red Blood Count 4.65 M/mm3 (4.20-5.40); Red Cell Distribution Width-SD 38.8 fL; White Blood Count 7.6 K/mm3 (4.8-10.8)
[2024-11-30] MEDS: ACETAMINOPHEN 500MG TAB 1000 MG PO (09:07)
[2024-11-30] MEDS: KETOROLAC 15MG/ML VIAL 15 MG IV (09:07)
[2024-11-30] MEDS: LIDOCAINE 5% TRANSDERMAL PATCH 1 EACH TD (09:07)
[2024-11-30 09:11] LABS: Chloride 108 mmol/L (98-107)
[2024-11-30 09:11] LABS: Urine Pregnancy, HCG Qual. Negative (Negative)
[2024-11-30 09:12] LABS: Albumin Level 4.7 g/dl (3.5-5.0); Potassium 4.0 mmoL/L (3.5-5.1); Sodium 139 mmol/L (136-145)
[2024-11-30 09:14] LABS: Alanine Aminotransferase 27 U/L (12-78); Blood Urea Nitrogen 22 mg/dl (7-17); Creatinine Clearance Estimated 149 mL/min (50-200); Creatinine,Serum 0.70 mg/dl (0.52-1.04); Estimated Glomerular Filt Rate 97 ml/min (>60); GFR (African American) 117 ML/MIN (>60)
[2024-11-30 09:15] LABS: Albumin/Globulin Ratio 1.6 (1.1-1.8); Alkaline Phosphatase 43 U/L (38-126); Anion Gap 12.0 mEq/L (5-15); Aspartate Amino Transferase 29 U/L (14-36); Bilirubin,Total 1.2 mg/dl (0.2-1.3); Calcium 9.5 mg/dl (8.4-10.2); Carbon Dioxide 23 mmol/L (22.0-30.0); Globulin 2.9 g/dL (1.3-3.2); Glucose 106 mg/dl (74-100); Total Protein,Serum 7.6 g/dl (6.3-8.2)
[2024-11-30 09:20] LABS: C-Reactive Protein 1.0 mg/L (0-4)
[2024-11-30 09:25] LABS: HCG Qualitative, Serum Negative (Negative)
[2024-11-30 09:27] LABS: Lipase 44 U/L (23-300)
--- NOTE | 2024-11-30 09:27 | PC.NURSE ---
patient gone to CT at this time.
[2024-11-30 09:30] LABS: Troponin I < 0.01 ng/ml (0.00-0.034)
--- NOTE | 2024-11-30 09:44 | PC.NURSE ---
Pt back from CT
[2024-11-30] MEDS: SODIUM CHLORIDE 0.9% 10ML SYR (RAD ONLY) 10 ML IV (09:46)
[2024-11-30] MEDS: IOPAMIDOL-370 (76%);100ML BOTTLE 80 ML IV (09:46)
[2024-11-30] MEDS: 0.9 % SODIUM CHLORIDE 50 ML VIAL IV (09:46)
[2024-11-30 10:00] VITALS: BP 162/108; PULSE 58; O2SAT 100
[2024-11-30] MEDS: OXYCODONE 5MG IMMEDIATE RELEASE TABLET 5 MG PO (10:01)
--- NOTE | 2024-11-30 10:17 | PC.NURSE ---
Dr Macias @ bedside speaking w/ pt
[2024-11-30 10:31] VITALS: BP 162/108; PULSE 58; RESP 18; TEMP 36.6; O2SAT 100
== END 2024-11-30 10:32 | disposition home or self-care (01) ==
PROVIDERS: Emergency Provider Student in an Organized Health Care Education/Training Program; PCP Family Medicine
DX: R07.1 Chest pain on breathing (principal); R91.1 Solitary pulmonary nodule; I10 Essential (primary) hypertension
CPT/HCPCS: 71275; 80053; 81025; 83690; 84484; 84703; 85025; 86140; 93005; 96374; 99284; J1885; Q9967

== ENCOUNTER 2024-12-03 00:21 | Emergency (ER) | payer MEDICAID, SELFPAY ==
[2024-12-03 00:39] VITALS: BP 172/133; PULSE 85; RESP 16; TEMP 36.9; O2SAT 99; BMI 32.9
[2024-12-03 00:47] VITALS: BP 172/133; PULSE 85; RESP 16; TEMP 36.9; O2SAT 99
[2024-12-03 01:06] LABS: Hematocrit 43.7 % (37.0-47.0); Hemoglobin 15.6 g/dL (12.2-16.2); Immature Granulocytes % 0.5 %; Mean Corpuscular HGB Conc 35.7 g/dL (31.8-35.4); Mean Corpuscular Hemoglobin 30.4 pg (27.0-31.2); Mean Corpuscular Volume 85.0 fl (81-99); Nucleated Red Blood Cells % 0 %; Platelet Count 293 K/mm3 (142-424); Red Blood Count 5.14 M/mm3 (4.20-5.40); Red Cell Distribution Width-SD 37.2 fL; White Blood Count 12.2 K/mm3 (4.8-10.8)
[2024-12-03 01:10] LABS: Chloride 109 mmol/L (98-107)
[2024-12-03 01:11] LABS: Albumin Level 5.0 g/dl (3.5-5.0); Potassium 4.6 mmoL/L (3.5-5.1); Sodium 137 mmol/L (136-145)
[2024-12-03 01:13] LABS: Blood Urea Nitrogen 18 mg/dl (7-17); Creatinine Clearance Estimated 185 mL/min (50-200); Creatinine,Serum 0.60 mg/dl (0.52-1.04); Estimated Glomerular Filt Rate 116 ml/min (>60); GFR (African American) 140 ML/MIN (>60)
[2024-12-03 01:14] LABS: Alanine Aminotransferase 27 U/L (12-78); Albumin/Globulin Ratio 1.5 (1.1-1.8); Alkaline Phosphatase 42 U/L (38-126); Anion Gap 13.6 mEq/L (5-15); Aspartate Amino Transferase 36 U/L (14-36); Bilirubin,Total 1.2 mg/dl (0.2-1.3); Calcium 10.1 mg/dl (8.4-10.2); Carbon Dioxide 19 mmol/L (22.0-30.0); Globulin 3.3 g/dL (1.3-3.2); Glucose 124 mg/dl (74-100); INR 1.01 (0.9-1.1); Prothrombin Time 11.2 seconds (10.1-12.5); Total Protein,Serum 8.3 g/dl (6.3-8.2)
[2024-12-03 01:21] LABS: HCG Qualitative, Serum Negative (Negative)
[2024-12-03 01:22] LABS: Lipase 33 U/L (23-300)
[2024-12-03 01:38] VITALS: BP 171/103; PULSE 87; RESP 16; TEMP 36.9; O2SAT 97
--- NOTE | 2024-12-03 02:39 | HMH.EDGENADL ---
Discharge Plan Disposition Patient Disposition: Home, Self-Care Condition: Fair Prescriptions Prescriptions: No Action methylprednisolone [Medrol (Paulie)] 4 mg tablets,dose pack See Rx Instructions PO PER PKG DIR Qty: 21 0RF Rx Instructions: PO PER PKG DIR methocarbamol 1,000 mg tablet 1,000 mg PO Q8H Qty: 14 0RF amoxicillin 500 mg capsule 500 mg PO Q8H Patient Comments: TAKE 1 CAPSULE BY MOUTH EVERY 8 HOURS UNTIL ALL TAKEN ibuprofen 800 mg tablet 800 mg PO Q6HP PRN (Reason: Pain) Patient Comments: TAKE 1 TABLET BY MOUTH EVERY 6 TO 8 HOURS NEEDED FOR PAIN oxycodone 5 mg tablet 5 mg PO Q6H PRN (Reason: pain) Qty: 4 0RF Referrals Follow up/Referrals: Luis E Jones MD [Nurse Practitioner, Pain Management] - See instructions Referral Note: mid back pain Casie Greco APRN [Primary Care Provider, Family Practice] - See instructions Activity Restrictions/Add. Instructions Additional Instructions/Restrictions: You were evaluated in the ER and are believed to be appropriate for discharge at this time. Continue the medications that you have been previously prescribed. As discussed, continue following up with your primary care doctor and physical therapy so that you can proceed with MRI. Follow-up with pain management as well, you have been referred to Dr. Jones for this. Return to the ER with any new, worsening, or otherwise concerning symptoms per Clinical Impressions Clinical Impression: Back pain Instructions Patient Instructions: DI for Acute Abdominal Pain Print Language Print Language: Estonian Discharge ED Provider: Adriel Brand Adult HPI General Chief complaint: Abdominal Pain Stated complaint: L rib, back pain Time Seen by Provider: 12/03/24 00:40 Mode of Arrival: Ambulatory Source of Information: Patient Description of Symptoms (Recalled from ER Triage Doc. by RN): Pt reports LLQ pain for approx 1 week. Pt states she has been seen here several times and has not got any answers. Pt states she has 10/10 LLQ pain with nausea. Pt reports sharp constant pain. History of Present Illness HPI narrative: 34-year-old female presents to the ER with left upper flank and back pain. Patient has been seen for this multiple times in the last few days without getting any answers . Patient reports she has been told she has muscle spasm, musculoskeletal pain, etc. She states she is worried she may have a herniated disc. She has no saddle anesthesia, no bowel or bladder incontinence, no weakness in the legs. Patient reports sharp pain that starts in her mid back and radiates around the left flank. She states she feels like something is in there and she cannot get away from it. She reports her symptoms started multiple days ago after she picked someone up and felt pain that then got worse after a severe popping sensation in her back. She has had extensive laboratory and imaging workup and has been prescribed oxycodone which she states took the edge off . She states she does not want to go to physical therapy because even walking around does not seem to help. No symptoms of illness. No other complaints or concerns at this time Related Data Home Medications ?Medication ?Instructions ?Recorded ?Confirmed amoxicillin 500 mg capsule 500 mg PO Q8H 11/30/24 12/01/24 ibuprofen 800 mg tablet 800 mg PO Q6HP PRN Pain 11/30/24 12/01/24 Previous Rx's ?Medication ?Instructions ?Recorded methocarbamol 1,000 mg tablet 1,000 mg PO Q8H #14 tabs 11/29/24 oxycodone 5 mg tablet 5 mg PO Q6H PRN pain #4 tabs 11/30/24 methylprednisolone 4 mg tablets in See Rx Instructions PO PER PKG DIR 12/01/24 a dose pack (Medrol (Paulie)) #21 tabs Allergies Allergy/AdvReac Type Severity Reaction Status Date / Time No Known Allergies Allergy Verified 12/01/24 14:20 [facility] Dis[facility]: The information contained in this section may have been updated after the patient was seen, as this information can be updated by other users. Medical History PCOS (polycystic ovarian syndrome) Cholelithiasis Cholecystitis with cholelithiasis Pharyngitis due to Streptococcus species Obesity Vitamin D deficiency (~07/01/17) Swelling of both hands Tingling in extremities Depression Hypertension Blood pressure today was 120/70. Hives Vitiligo Amin's palsy Surgical History History of bilateral salpingectomy History of cholecystectomy History of section Family History Other No significant family history Social History Smoking Status: Never smoker second hand exposure: No alcohol intake: never substance use type: denies use current occupational status: employed Travel in the last 8 weeks?: None household members: children housing: apartment caffeine: Yes Have you lived/traveled outside [place] in past 30 days?: No Contact w/someone who lives/traveled outside US past 30 days?: No Exposure to someone with infectious disease in past 14 days?: No Do you have a fever (greater than 100.4 F or 38 C)?: No Have you tested positive for COVID-19?: No Exposed to someone with COVID-19 in past 14 days?: No Do you have a sore throat?: No Do you have a cough?: No Do you have any weakness?: No Do you have any diarrhea?: No Are you experiencing any unusual bleeding?: No Do you have any muscle aches/pain?: No Do you have any abdominal pain?: Yes Are you experiencing loss of taste or smell?: No Other Medical History Have you received the Flu Vaccine for this season: No Have you received the Pneumonia Vaccine: No ROS Obtained: Yes Systems reviewed as appropriate & no additional complaints except as documented Per HPI Physical Exam General General appearance: alert Comment: Obviously in pain but nontoxic-appearing Head Head exam: atraumatic and normocephalic Eye Eye exam: Present PERRL and EOMI ENT ENT exam: Present mucous membranes moist Neck Neck exam: Present normal inspection and full ROM Chest Chest inspection: Present symmetric chest wall rise Respiratory Respiratory exam: Present normal lung sounds bilaterally; Absent respiratory distress, wheezes or stridor Cardiovascular Cardiovascular exam: Present regular rate and normal rhythm Abdominal Exam Abdominal exam: Present soft; Absent distention or tenderness Extremities Exam Extremities exam: Present full ROM Back Exam Back exam: Present CVA tenderness (L) (Patient has left-sided CVA tenderness that radiates around the side into the front) and paraspinal tenderness; Absent CVA tenderness (R) or vertebral tenderness Back 1 view image:  1. Band of pain in this area wrapping around the left side with tenderness to palpation and percussion Neurological Exam Neurological exam: Present alert, oriented X3 and other (No saddle anesthesia); Absent motor sensory deficit Psychiatric Psychiatric exam: Present normal affect and normal mood Skin Skin exam: Present warm and dry Medical Decision Making Medical Records Medical records reviewed: Yes I reviewed the patient's medical records. Screening: Per USPSTF and CDC recommendations, given the prevalence of disease in our region, it is our hospital?s policy to screen for HIV and viral Hepatitis for all patients aged 18 and over and those with ongoing risk factors. Jack Inquiry Pt receiving controlled substance: No Vital Signs: 12/03/24 00:39 12/03/24 00:47 12/03/24 01:38 Temperature 98.4 F 98.4 F 98.4 F Temperature Source Oral Oral Oral Pulse Rate 85 87 Pulse Rate [Left] 85 Respiratory Rate 16 16 16 Blood Pressure 172/133 H 171/103 H Blood Pressure [Right Arm] 172/133 H Blood Pressure Mean [Right Arm] 146 Blood Pressure Source Automatic Cuff Blood Pressure Source [Right Arm] Automatic Cuff Blood Pressure Position Sitting 02 Sat by Pulse Oximetry 99 99 Oxygen Delivery Method Room Air Room Air Room Air Lab Data Lab Results 12/03/24 00:55: WBC 12.2 H D, RBC 5.14, Hgb 15.6, Hct 43.7, MCV 85.0, MCH 30.4, MCHC 35.7 H, RDW 12.1, Plt Count 293 D, MPV 10.5 H, Neut % (Auto) 85.3 H, Lymph % (Auto) 12.0, Bracken % (Auto) 2.0, Eos % (Auto) 0.0 L, Baso % (Auto) 0.2, Neut # (Auto) 10.4 H, Lymph # (Auto) 1.5, Bracken # (Auto) 0.2, Eos # (Auto) 0.0, Baso # (Auto) 0.0, PT 11.2, INR 1.01, Sodium 137, Potassium 4.6, Chloride 109 H, Carbon Dioxide 19 L, Anion Gap 13.6, BUN 18 H, Creatinine 0.60, Estimated Creat Clear 185, Estimated GFR 116, Est GFR ( Amer) 140, Glucose 124 H, Calcium 10.1, Total Bilirubin 1.2, AST 36, ALT 27, Alkaline Phosphatase 42, Total Protein 8.3 H, Albumin 5.0, Globulin 3.3 H, Albumin/Globulin Ratio 1.5, Lipase 33, Serum HCG, Qual Negative 12/03/24 00:55 12/03/24 00:55 Orders (Tests/Meds): ORDERS Category Date Time Status Complete Blood Count Auto Diff Stat Lab 12/03/24 00:55 Completed Comprehensive Metabolic Panel Stat Lab 12/03/24 00:55 Completed HCG Qualitative, Serum Stat Lab 12/03/24 00:55 Completed Lipase Stat Lab 12/03/24 00:55 Completed Prothrombin Time INR Stat Lab 12/03/24 00:55 Completed Urinalysis and Microscopic Stat Lab 12/03/24 01:37 Ordered Medical Decision Narrative: In summary, this 34-year-old female presents to the emergency department today with persistent mid back/left flank pain wrapping around the left side. On initial evaluation patient is hemodynamically stable and afebrile, obviously in pain but nontoxic-appearing, tenderness in the paraspinal area of the left mid back. Differential diagnosis includes but is not limited to muscle spasm, disc injury, radiculopathy, considered bony injury, urinary tract infection, pyelonephritis, among others. Patient has had extensive workup for all of these things multiple times. I reviewed labs from patient's recent visits which have been very reassuring. I also reviewed patient's imaging including CTA chest and CT abdomen pelvis performed in the last few days for identical symptoms and these have been unremarkable overall for acute pathology that would be causing her symptoms. I have highest suspicion for musculoskeletal etiology. She has no red flag symptoms for cauda equina. Hematologic and serum labs were ordered, after discussion with the patient she does not want to wait for labs or do any additional workup. I did recommend CT for repeat imaging since she does have new mild leukocytosis, but she states she is too uncomfortable to lay flat for additional imaging and admits that she knows that there has not been anything found in the ER or any specific additional tests that I can do tonight that would be different than what has been done before. She has been referred for physical therapy but states she has not gone because walking around does not make her feel better. I explained to her that appropriate exercises from physical therapy may make a big difference for her and encouraged her to follow through with physical therapy as recommended by her primary care doctor. Her primary care doctor is already in process of trying to get an MRI scheduled for her as well which I encouraged her to keep. Patient has a nonacute exam. Her labs did result showing a mild increase increase in her WBCs, slight leukocytosis. Despite this she does not want additional workup and would just like to be discharged at this time. Her PT/INR is normal, CMP unremarkable and nonactionable, lipase normal, hCG negative. Aside from very slight leukocytosis at this time which could be related to patient's recent steroid use, she has no other changes in her labs which is further reassurance that there is likely not new pathology that could be identified on imaging in the ER today. I believe it is reasonable for her to be discharged at this time. I encouraged her to continue taking the medications that have been previously prescribed to her and to follow-up with her primary care and physical therapy. I also gave her a referral to Dr. Jones with pain management. Patient was given instructions on symptomatic management, follow up instructions, and return precautions for the emergency department. Patient indicated understanding and was discharged in stable condition. Critical Care Critical Care Time Critical Care Time: No
== END 2024-12-03 01:39 | disposition home or self-care (01) ==
PROVIDERS: Emergency Provider Emergency Medicine; PCP Family Medicine
DX: M54.6 Pain in thoracic spine (principal); R10.32 Left lower quadrant pain
CPT/HCPCS: 80053; 83690; 84703; 85025; 85610; 99283; 99284

== ENCOUNTER 2024-12-04 07:59 | Outpatient (CLI) | payer MEDICAID, SELFPAY ==
--- NOTE | 2024-12-04 08:02 | XR_ITS ---
FINAL REPORT CLINICAL HISTORY: back pain FINDINGS: AP and lateral views of the thoracic spine were obtained. There is no prior exam for comparison. There is no acute fracture or malalignment. Vertebral body height is preserved. Paraspinal soft tissues are within normal limits. IMPRESSION: No acute osseous abnormality of the thoracic spine. Reviewed, Interpreted and Dictated by Olinda Mccray MD Transcribed by Senia Up Authenticated and [facility]
--- NOTE | 2024-12-04 08:02 | XR_ITS ---
FINAL REPORT CLINICAL HISTORY: back pain FINDINGS: AP and lateral views of the lumbar spine were obtained. There is no prior exam for comparison. There is no acute fracture or malalignment. Vertebral body height is preserved. Disc space height is preserved. No acute paraspinal abnormality. IMPRESSION: No acute osseous abnormality of the lumbar spine. Reviewed, Interpreted and Dictated by Olinda Mccray MD Transcribed by Senia Up Authenticated and [facility]
--- OUTSIDE RECORDS SUMMARY | 2024-12-04 08:02 | XMS_ITS | Clinical Summary ---
[facility] Address [address] [place] [address] Care Team Providers Care Manager Radio Name Role Phone Provider, No Known Primary [...] age to complete this topic Care Teams Manager Radio Relationship Specialty Start Date End Date Provider, [place] [address] PCP - General 01/27/15
== END 2024-12-04 23:59 | disposition home or self-care (01) ==
LOC: RAD 08:00
PROVIDERS: PCP Family Medicine; Visit Provider Family Medicine
DX: S39.012A Strain of muscle, fascia and tendon of lower back, initial encounter (principal)
CPT/HCPCS: 72072; 72100

== ENCOUNTER 2024-12-07 07:09 | Outpatient (CLI) | payer MEDICAID, SELFPAY ==
--- NOTE | 2024-12-07 | MR_ITS ---
FINAL REPORT TECHNIQUE: Multiplanar and multisequence MR imaging was performed through the lumbar spine before and after contrast administration. CLINICAL HISTORY: severe back pain that radiates to the left side and down her legs FINDINGS: The vertebral bodies are normally aligned. The vertebral body heights are preserved. There is no bone marrow edema. There is no abnormal bone marrow enhancement. The cord terminates at L2. There is normal signal within the distal cord. There is no abnormal enhancement in the distal cord. There is no acute paraspinal abnormality. There is no loculated fluid collection. L1-L2: Unremarkable. L2-L3: Unremarkable. L3-L4: Unremarkable. L4-L5: Mild facet osteoarthropathy without disc herniation, canal stenosis or neuroforaminal narrowing. L5-S1: Annular disc bulge with mild facet osteoarthropathy. No significant central canal stenosis. Mild right and mild to moderate left neuroforaminal narrowing. IMPRESSION: No acute abnormality or abnormal contrast-enhancement. Degenerative disc disease, most pronounced at L5-S1. Reviewed, Interpreted and Dictated by Olinda Mccray MD Transcribed by Sunshine Danielson Authenticated and [facility]
--- NOTE | 2024-12-07 | MR_ITS ---
FINAL REPORT TECHNIQUE: Multiplanar MR imaging of the thoracic spine was performed without and with contrast. CLINICAL HISTORY: severe back pain that radiates to the left side and down her legs FINDINGS: There is no bone marrow edema or cord edema. The vertebral alignment is normal. No bony mass is identified. There is a left paracentral protrusion at T9-10 with mild mass effect on the anterior thecal sac. No other disc herniation, canal stenosis or neuroforaminal narrowing is seen. On the postcontrast images, no abnormal contrast enhancement is identified. IMPRESSION: Left paracentral protrusion at T9-10 with mass effect on the anterior thecal sac. No abnormal contrast enhancement identified. Reviewed, Interpreted and Dictated by Olinda Mccray MD Transcribed by Sunshine Danielson Authenticated and [facility][1]
--- OUTSIDE RECORDS SUMMARY | 2024-12-07 07:12 | XMS_ITS | Clinical Summary ---
[facility] [address] [place] [address] Care Team Providers Care Carroting Machine Offbearer Name Role Phone Provider, No Known Primary [...] Tdap) 08/09/2011 COVID-19 Vaccine (2023-2 5 season) 2024 INFLUENZA VACCINE 12/30/2024 Pneumococcal Vaccine 0-49 Aged Out No longer eligible based on patient's age to complete this topic Care Teams Carroting Machine Offbearer Relationship Specialty Start Date End Date Provider, [place] [address] PCP - General 01/27/15
[2024-12-07] MEDS: GADOTERIDOL INJ 20ML SYRINGE 18 ML IV (08:30)
[2024-12-07] MEDS: SODIUM CHLORIDE 0.9% 10ML SYR (RAD ONLY) 10 ML IV (08:30)
== END 2024-12-07 23:59 | disposition home or self-care (01) ==
LOC: RAD 07:11
PROVIDERS: PCP Family Medicine; Visit Provider Family Medicine
DX: M51.16 Intervertebral disc disorders with radiculopathy, lumbar region (principal); M51.17 Intervertebral disc disorders with radiculopathy, lumbosacral region; M51.24 Other intervertebral disc displacement, thoracic region; M62.838 Other muscle spasm
CPT/HCPCS: 72157; 72158; A9576